=== PATIENT | female | born 1995 | race American Indian/Alaskan Native ===

== ENCOUNTER 2017-06-21 19:53 | Emergency (ER) | payer OTHER ==
[~2017-06-21] VITALS: Ht 167.6 cm; Wt 90.7 kg
[~2017-06-21 19:53] MED LIST: (None)20 M1 PO; ACET325 PO; ALBU.083IS IH; ALBU3IS INH; ALBU90I INH; ALBU90OI INH; ALBU90OI6 INH; ALL DAY ALLERGY10 MG PO; AMOCLA500 PO; AZIT250 PO; AZIT500 PO; Accuneb0.63 MG/3 INH; BECL40OI; BENZ100A PO; CAMRESE LO TAB1 EACH PO; CETI5 PO; CODGUAEL PO; DELTASONE20 MG PO; DIPH50 PO; DULERA; DULERA 200 MCG/13 GM INH; Duoneb 2.5-0.5 M3 ML INH; EPIN.3I IM; FLONASE ALLERG9.9 ML; Flonase 0.05% N16 GM; LEVFLO500 PO; LEVO750 PO; LISI5 PO; LORA10ER PO; MONT10T PO; PRED10 PO; PRED20 PO; PSEU120ER PO; Prednisone10 MG PO; Prednisone20 MG PO; QVAR7.3 G1 INH; RANI150 PO; RXCODGUASY PO; SEASONIQUE; Sudogest30 MG PO; TRAM50 PO; VITAMIN D35000 UNIT PO; Ventolin Soln3 ML INH; Vibramycin100 MG PO; [UNRECOGNIZED DRUG - OTHER] PO
[2017-06-21 20:57] LABS: BASOPHILS ABSOLUTE AUTO 0.03 K/mm3 (0.00-0.23); BASOPHILS PERCENT AUTO 0 % (0-2); EOSINOPHILS ABSOLUTE AUTO 0.38 K/mm3 (0.00-0.68); EOSINOPHILS PERCENT AUTO 3 % (0-6); Hematocrit 38.6 % (33.0-51.0); IMMATURE GRAN PERCENT AUTO 1 % (0-1); LYMPHOCYTES ABSOLUTE AUTO 1.89 K/mm3 (0.84-5.20); LYMPHOCYTES PERCENT AUTO 17 % (21-46); MONOCYTES ABSOLUTE AUTO 0.75 K/mm3 (0.16-1.47); MONOCYTES PERCENT AUTO 7 % (4-13); Mean Corpuscular HGB 30.3 pg (26.0-34.0); Mean Corpuscular HGB Conc 33.7 g/dL (31.5-36.5); Mean Corpuscular Volume 90 fL (80-100); Mean Platelet Volume 9.9 fL (9.1-12.4); NEUTROPHILS ABSOLUTE AUTO 8.33 K/mm3 (1.96-9.15); NEUTROPHILS PERCENT AUTO 73 % (41-73); Platelet Count 245 K/mm3 (150-400); RDW Standard Deviation 42.4 fL (35.1-46.3); Red Blood Cell Count 4.29 M/mm3 (3.80-5.20); White Blood Cell Count 11.48 K/mm3 (4.00-11.30)
[2017-06-21 21:21] LABS: Alanine Aminotransfer (ALT/SGP 35 U/L (12-78); Albumin, Blood 3.2 g/dL (3.4-5.0); Albumin/Globulin Ratio 0.9 (0.8-1.8); Alk Phos 47 U/L (50-136); Anion Gap 11 mmol/L (6-16); Aspartate Aminotrans (AST/SGOT 19 U/L (12-37); Bilirubin, Total 0.2 mg/dL (0.1-1.0); Blood Urea Nitrogen 8 mg/dL (8-24); Bun/Creatinine Ratio 14.8 (12.0-20.0); CO2, Blood 21 mmol/L (21-32); Calcium, Blood 8.6 mg/dL (8.5-10.1); Chloride, Blood 107 mmol/L (98-108); Creatinine, Blood 0.54 mg/dL (0.40-1.00); Globulin, Blood 3.4 g/dL (2.2-4.0); Glomerular Filtration Rate >60 (60-); Glucose, Blood 91 mg/dL (70-99); Potassium, Blood 3.3 mmol/L (3.5-5.5); Sodium, Blood 139 mmol/L (136-145); Total Protein, Blood 6.6 g/dL (6.4-8.2); Troponin I <0.015 ng/mL (0.000-0.040)
[2017-06-21] MEDS ORDERED: Prednisone20 MG PO (22:53)
[2017-10-27] MEDS ORDERED: CETI5 PO (11:26)
[2017-10-27] MEDS ORDERED: PRED10 PO (11:26)
[2018-03-02] MEDS ORDERED: ALBU3IS INH (04:53)
[2018-03-02] MEDS ORDERED: PRED5 PO (04:54)
[2018-03-02] MEDS ORDERED: MONT5TCH PO (04:55)
[2018-03-03] MEDS ORDERED: ALBU90OI INH (10:05)
[2018-03-03] MEDS ORDERED: PRED10 (10:07)
[2018-03-03] MEDS ORDERED: PSEUDOEPHEDRINE30 MG PO (10:08)
[2018-03-03] MEDS ORDERED: FLONASE ALLERG9.9 ML (10:10)
== END 2017-06-21 23:12 | disposition home or self-care (01) ==
LOC: ER 19:53
PROVIDERS: Physician Assistant
DX: O99.512 Diseases of the respiratory system complicating pregnancy, second trimester (principal); J45.901 Unspecified asthma with (acute) exacerbation; J44.9 Chronic obstructive pulmonary disease, unspecified; Z88.1 Allergy status to other antibiotic agents; Z88.8 Allergy status to other drugs, medicaments and biological substances; Z88.6 Allergy status to analgesic agent; Z79.899 Other long term (current) drug therapy; Z79.52 Long term (current) use of systemic steroids
CPT/HCPCS: 36415; 80053; 84484; 85025; 93005; 93010; 94640; 94644; 96360; 99283; J7030

== ENCOUNTER 2017-06-25 02:33 | Emergency (ER) | payer OTHER ==
[~2017-06-25] VITALS: Ht 162.6 cm; Wt 90.7 kg
[2017-06-25] MEDS ORDERED: LABE100 PO (03:16)
[2017-06-25] MEDS ORDERED: FLUT1DIS5 INH (03:17)
[2017-06-25] MEDS ORDERED: MONT10T PO (03:17)
[2017-10-27] MEDS ORDERED: CETI5 PO (11:26)
[2017-10-27] MEDS ORDERED: PRED10 PO (11:26)
[2018-03-02] MEDS ORDERED: ALBU3IS INH (04:53)
[2018-03-02] MEDS ORDERED: PRED5 PO (04:54)
[2018-03-02] MEDS ORDERED: MONT5TCH PO (04:55)
[2018-03-03] MEDS ORDERED: ALBU90OI INH (10:05)
[2018-03-03] MEDS ORDERED: PRED10 (10:07)
[2018-03-03] MEDS ORDERED: PSEUDOEPHEDRINE30 MG PO (10:08)
[2018-03-03] MEDS ORDERED: FLONASE ALLERG9.9 ML (10:10)
== END 2017-06-25 04:56 | disposition home or self-care (01) ==
LOC: ER 02:33
DX: O99.512 Diseases of the respiratory system complicating pregnancy, second trimester (principal); J45.901 Unspecified asthma with (acute) exacerbation; O24.312 Unspecified pre-existing diabetes mellitus in pregnancy, second trimester; E11.9 Type 2 diabetes mellitus without complications; O10.912 Unspecified pre-existing hypertension complicating pregnancy, second trimester; I10 Essential (primary) hypertension; Z88.1 Allergy status to other antibiotic agents; Z88.8 Allergy status to other drugs, medicaments and biological substances; Z88.6 Allergy status to analgesic agent; Z79.899 Other long term (current) drug therapy; Z79.52 Long term (current) use of systemic steroids
CPT/HCPCS: 71046; 94640; 99283

== ENCOUNTER 2017-06-28 21:30 | Emergency (ER) | payer OTHER ==
[~2017-06-28] VITALS: Ht 162.6 cm; Wt 90.7 kg
[~2017-06-28 21:30] MED LIST changes: +FLUT1DIS5 INH; +LABE100 PO
[2017-10-27] MEDS ORDERED: CETI5 PO (11:26)
[2017-10-27] MEDS ORDERED: PRED10 PO (11:26)
[2018-03-02] MEDS ORDERED: ALBU3IS INH (04:53)
[2018-03-02] MEDS ORDERED: PRED5 PO (04:54)
[2018-03-02] MEDS ORDERED: MONT5TCH PO (04:55)
[2018-03-03] MEDS ORDERED: ALBU90OI INH (10:05)
[2018-03-03] MEDS ORDERED: PRED10 (10:07)
[2018-03-03] MEDS ORDERED: PSEUDOEPHEDRINE30 MG PO (10:08)
[2018-03-03] MEDS ORDERED: FLONASE ALLERG9.9 ML (10:10)
== END 2017-06-28 23:32 | disposition home or self-care (01) ==
LOC: ER 21:30
DX: O99.712 Diseases of the skin and subcutaneous tissue complicating pregnancy, second trimester (principal); L20.9 Atopic dermatitis, unspecified; Z88.1 Allergy status to other antibiotic agents; Z88.8 Allergy status to other drugs, medicaments and biological substances; Z88.6 Allergy status to analgesic agent; Z79.899 Other long term (current) drug therapy; J45.909 Unspecified asthma, uncomplicated; O99.512 Diseases of the respiratory system complicating pregnancy, second trimester; O99.89 Other specified diseases and conditions complicating pregnancy, childbirth and the puerperium; E11.9 Type 2 diabetes mellitus without complications; I10 Essential (primary) hypertension; Z3A.20 20 weeks gestation of pregnancy
CPT/HCPCS: 99282

== ENCOUNTER 2017-06-30 19:26 | Inpatient (IN) | payer OTHER ==
[~2017-06-30] VITALS: Ht 162.6 cm; Wt 90.0 kg
[2017-06-30 20:08] LABS: BASOPHILS ABSOLUTE AUTO 0.04 K/mm3 (0.00-0.23); BASOPHILS PERCENT AUTO 0 % (0-2); EOSINOPHILS ABSOLUTE AUTO 0.39 K/mm3 (0.00-0.68); EOSINOPHILS PERCENT AUTO 3 % (0-6); Hematocrit 40.8 % (33.0-51.0); Hemoglobin 13.4 g/dL (11.5-16.0); IMMATURE GRAN ABSOLUTE AUTO 0.08 K/mm3 (0.00-0.10); IMMATURE GRAN PERCENT AUTO 1 % (0-1); LYMPHOCYTES ABSOLUTE AUTO 0.71 K/mm3 (0.84-5.20); LYMPHOCYTES PERCENT AUTO 5 % (21-46); MONOCYTES ABSOLUTE AUTO 0.63 K/mm3 (0.16-1.47); MONOCYTES PERCENT AUTO 5 % (4-13); Mean Corpuscular HGB 30.2 pg (26.0-34.0); Mean Corpuscular HGB Conc 32.8 g/dL (31.5-36.5); Mean Corpuscular Volume 92 fL (80-100); Mean Platelet Volume 10.2 fL (9.1-12.4); NEUTROPHILS ABSOLUTE AUTO 11.76 K/mm3 (1.96-9.15); NEUTROPHILS PERCENT AUTO 86 % (41-73); Platelet Count 232 K/mm3 (150-400); RDW Coefficient Variation 12.7 % (11.7-14.2); Red Blood Cell Count 4.43 M/mm3 (3.80-5.20); White Blood Cell Count 13.61 K/mm3 (4.00-11.30)
[2017-06-30 20:24] LABS: Alanine Aminotransfer (ALT/SGP 44 U/L (12-78); Albumin, Blood 3.4 g/dL (3.4-5.0); Alk Phos 57 U/L (50-136); Anion Gap 11 mmol/L (6-16); Aspartate Aminotrans (AST/SGOT 24 U/L (12-37); Bilirubin, Total 0.3 mg/dL (0.1-1.0); Blood Urea Nitrogen 7 mg/dL (8-24); Bun/Creatinine Ratio 11.6 (12.0-20.0); CO2, Blood 22 mmol/L (21-32); Calcium, Blood 8.9 mg/dL (8.5-10.1); Chloride, Blood 105 mmol/L (98-108); Globulin, Blood 3.5 g/dL (2.2-4.0); Glomerular Filtration Rate >60 (60-); Glucose, Blood 96 mg/dL (70-99); Potassium, Blood 3.3 mmol/L (3.5-5.5); Sodium, Blood 138 mmol/L (136-145); Total Protein, Blood 6.9 g/dL (6.4-8.2)
[2017-07-01 14:12] LABS: Influenza B Negative (NEGATIVE)
[2017-07-01 14:13] LABS: Influenza A Positive (NEGATIVE)
[2017-07-02 04:08] LABS: BASOPHILS ABSOLUTE AUTO 0.02 K/mm3 (0.00-0.23); BASOPHILS PERCENT AUTO 0 % (0-2); EOSINOPHILS ABSOLUTE AUTO 0.03 K/mm3 (0.00-0.68); EOSINOPHILS PERCENT AUTO 0 % (0-6); Hematocrit 37.6 % (33.0-51.0); Hemoglobin 12.2 g/dL (11.5-16.0); IMMATURE GRAN ABSOLUTE AUTO 0.06 K/mm3 (0.00-0.10); IMMATURE GRAN PERCENT AUTO 1 % (0-1); LYMPHOCYTES PERCENT AUTO 7 % (21-46); MONOCYTES ABSOLUTE AUTO 0.54 K/mm3 (0.16-1.47); MONOCYTES PERCENT AUTO 6 % (4-13); Mean Corpuscular HGB 30.3 pg (26.0-34.0); Mean Corpuscular HGB Conc 32.4 g/dL (31.5-36.5); Mean Corpuscular Volume 93 fL (80-100); NEUTROPHILS ABSOLUTE AUTO 7.16 K/mm3 (1.96-9.15); NEUTROPHILS PERCENT AUTO 85 % (41-73); Platelet Count 182 K/mm3 (150-400); RDW Standard Deviation 44.8 fL (35.1-46.3); Red Blood Cell Count 4.03 M/mm3 (3.80-5.20); White Blood Cell Count 8.41 K/mm3 (4.00-11.30)
[2017-07-02 04:30] LABS: Anion Gap 11 mmol/L (6-16); Blood Urea Nitrogen 8 mg/dL (8-24); CO2, Blood 21 mmol/L (21-32); Calcium, Blood 8.1 mg/dL (8.5-10.1); Chloride, Blood 106 mmol/L (98-108); Creatinine, Blood 0.57 mg/dL (0.40-1.00); Glomerular Filtration Rate >60 (60-); Glucose, Blood 88 mg/dL (70-99); Potassium, Blood 3.1 mmol/L (3.5-5.5); Sodium, Blood 138 mmol/L (136-145)
[2017-07-03 04:10] LABS: BASOPHILS ABSOLUTE AUTO 0.01 K/mm3 (0.00-0.23); BASOPHILS PERCENT AUTO 0 % (0-2); EOSINOPHILS ABSOLUTE AUTO 0.01 K/mm3 (0.00-0.68); EOSINOPHILS PERCENT AUTO 0 % (0-6); Hematocrit 36.5 % (33.0-51.0); Hemoglobin 11.9 g/dL (11.5-16.0); IMMATURE GRAN ABSOLUTE AUTO 0.05 K/mm3 (0.00-0.10); IMMATURE GRAN PERCENT AUTO 1 % (0-1); LYMPHOCYTES ABSOLUTE AUTO 0.49 K/mm3 (0.84-5.20); LYMPHOCYTES PERCENT AUTO 9 % (21-46); MONOCYTES ABSOLUTE AUTO 0.58 K/mm3 (0.16-1.47); MONOCYTES PERCENT AUTO 10 % (4-13); Mean Corpuscular HGB 30.3 pg (26.0-34.0); Mean Corpuscular HGB Conc 32.6 g/dL (31.5-36.5); Mean Corpuscular Volume 93 fL (80-100); Mean Platelet Volume 10.1 fL (9.1-12.4); NEUTROPHILS ABSOLUTE AUTO 4.48 K/mm3 (1.96-9.15); NEUTROPHILS PERCENT AUTO 80 % (41-73); Platelet Count 181 K/mm3 (150-400); RDW Coefficient Variation 13.1 % (11.7-14.2); RDW Standard Deviation 44.9 fL (35.1-46.3); Red Blood Cell Count 3.93 M/mm3 (3.80-5.20); White Blood Cell Count 5.62 K/mm3 (4.00-11.30)
[2017-07-03 04:25] LABS: Albumin, Blood 2.8 g/dL (3.4-5.0); Anion Gap 9 mmol/L (6-16); Blood Urea Nitrogen 6 mg/dL (8-24); Bun/Creatinine Ratio 9.5 (12.0-20.0); CO2, Blood 24 mmol/L (21-32); Calcium, Blood 8.3 mg/dL (8.5-10.1); Chloride, Blood 105 mmol/L (98-108); Creatinine, Blood 0.63 mg/dL (0.40-1.00); Glomerular Filtration Rate >60 (60-); Glucose, Blood 83 mg/dL (70-99); Phosphorus, Blood 5.1 mg/dL (2.5-4.9); Potassium, Blood 3.7 mmol/L (3.5-5.5); Sodium, Blood 138 mmol/L (136-145)
[2017-07-04 04:06] LABS: BASOPHILS ABSOLUTE AUTO 0.01 K/mm3 (0.00-0.23); BASOPHILS PERCENT AUTO 0 % (0-2); EOSINOPHILS ABSOLUTE AUTO 0.01 K/mm3 (0.00-0.68); EOSINOPHILS PERCENT AUTO 0 % (0-6); Hematocrit 37.8 % (33.0-51.0); IMMATURE GRAN ABSOLUTE AUTO 0.03 K/mm3 (0.00-0.10); IMMATURE GRAN PERCENT AUTO 1 % (0-1); LYMPHOCYTES ABSOLUTE AUTO 0.74 K/mm3 (0.84-5.20); LYMPHOCYTES PERCENT AUTO 15 % (21-46); MONOCYTES ABSOLUTE AUTO 0.55 K/mm3 (0.16-1.47); MONOCYTES PERCENT AUTO 11 % (4-13); Mean Corpuscular HGB 29.6 pg (26.0-34.0); Mean Corpuscular HGB Conc 31.7 g/dL (31.5-36.5); Mean Corpuscular Volume 93 fL (80-100); Mean Platelet Volume 9.9 fL (9.1-12.4); NEUTROPHILS ABSOLUTE AUTO 3.72 K/mm3 (1.96-9.15); NEUTROPHILS PERCENT AUTO 74 % (41-73); Platelet Count 184 K/mm3 (150-400); RDW Coefficient Variation 12.9 % (11.7-14.2); RDW Standard Deviation 44.5 fL (35.1-46.3); Red Blood Cell Count 4.05 M/mm3 (3.80-5.20); White Blood Cell Count 5.06 K/mm3 (4.00-11.30)
[2017-07-04 04:31] LABS: Albumin, Blood 2.8 g/dL (3.4-5.0); Anion Gap 8 mmol/L (6-16); Blood Urea Nitrogen 6 mg/dL (8-24); CO2, Blood 25 mmol/L (21-32); Calcium, Blood 8.5 mg/dL (8.5-10.1); Chloride, Blood 105 mmol/L (98-108); Creatinine, Blood 0.55 mg/dL (0.40-1.00); Glomerular Filtration Rate >60 (60-); Glucose, Blood 77 mg/dL (70-99); Phosphorus, Blood 5.4 mg/dL (2.5-4.9); Potassium, Blood 3.8 mmol/L (3.5-5.5); Sodium, Blood 138 mmol/L (136-145)
[2017-07-07] MEDS ORDERED: Acetaminophen325 M1 PO (14:12)
[2017-07-07] MEDS ORDERED: ENOX40I SC (14:14)
[2017-07-07] MEDS ORDERED: Zofran4 MG PO (14:15)
[2017-07-07] MEDS ORDERED: PROM25 PO (14:16)
[2017-07-07] MEDS ORDERED: PRED20 PO (14:18)
[2017-10-27] MEDS ORDERED: CETI5 PO (11:26)
[2017-10-27] MEDS ORDERED: PRED10 PO (11:26)
[2018-03-02] MEDS ORDERED: ALBU3IS INH (04:53)
[2018-03-02] MEDS ORDERED: PRED5 PO (04:54)
[2018-03-02] MEDS ORDERED: MONT5TCH PO (04:55)
[2018-03-03] MEDS ORDERED: ALBU90OI INH (10:05)
[2018-03-03] MEDS ORDERED: PRED10 (10:07)
[2018-03-03] MEDS ORDERED: PSEUDOEPHEDRINE30 MG PO (10:08)
[2018-03-03] MEDS ORDERED: FLONASE ALLERG9.9 ML (10:10)
== END 2017-07-07 14:36 | disposition home or self-care (01) | DRG 781 ==
LOC: ER 19:26 → ICUW 19:27 → PCU 07-01 18:58 → SURS 07-05 12:32 → ENPENDDIS 07-07 08:40 → SURS 07-07 14:36
PROVIDERS: Emergency Medicine; Internal Medicine Critical Care Medicine
DX: O99.512 Diseases of the respiratory system complicating pregnancy, second trimester (principal); J09.X2 Influenza due to identified novel influenza A virus with other respiratory manifestations; J45.901 Unspecified asthma with (acute) exacerbation; O24.410 Gestational diabetes mellitus in pregnancy, diet controlled; E66.9 Obesity, unspecified; J44.9 Chronic obstructive pulmonary disease, unspecified; O10.012 Pre-existing essential hypertension complicating pregnancy, second trimester; J01.90 Acute sinusitis, unspecified; O99.212 Obesity complicating pregnancy, second trimester; Z86.718 Personal history of other venous thrombosis and embolism; Z3A.20 20 weeks gestation of pregnancy; Z68.34 Body mass index [BMI] 34.0-34.9, adult
CPT/HCPCS: 36415; 71045; 80053; 80069; 82947; 85025; 87804; 94640; 94644; 94760; 94761; 94762; 99285; G0378; J0696; J1650; J2405; J2550; J3480; J7030; J7120

== ENCOUNTER 2017-10-27 11:07 | Inpatient (IN) | payer OTHER ==
[~2017-10-27] VITALS: Ht 165.1 cm; Wt 96.8 kg
[~2017-10-27 11:07] MED LIST changes: +Acetaminophen325 M1 PO; +ENOX40I SC; -FLUT1DIS5 INH; +FLUT1DIS8 INH; +PROM25 PO; +Zofran4 MG PO
[2017-10-27] MEDS ORDERED: PRED10 (11:26)
[2017-10-27] MEDS ORDERED: CETI5 (11:26)
[2017-10-27 12:02] LABS: BASOPHILS ABSOLUTE AUTO 0.04 K/mm3 (0.00-0.23); BASOPHILS PERCENT AUTO 0 % (0-2); EOSINOPHILS ABSOLUTE AUTO 0.38 K/mm3 (0.00-0.68); EOSINOPHILS PERCENT AUTO 4 % (0-6); Hematocrit 37.5 % (33.0-51.0); IMMATURE GRAN ABSOLUTE AUTO 0.04 K/mm3 (0.00-0.10); IMMATURE GRAN PERCENT AUTO 0 % (0-1); LYMPHOCYTES PERCENT AUTO 12 % (21-46); MONOCYTES ABSOLUTE AUTO 0.61 K/mm3 (0.16-1.47); MONOCYTES PERCENT AUTO 6 % (4-13); Mean Corpuscular HGB 27.6 pg (26.0-34.0); Mean Corpuscular Volume 86 fL (80-100); Mean Platelet Volume 11.3 fL (9.1-12.4); NEUTROPHILS ABSOLUTE AUTO 7.71 K/mm3 (1.96-9.15); NEUTROPHILS PERCENT AUTO 77 % (41-73); Platelet Count 241 K/mm3 (150-400); RDW Coefficient Variation 13.4 % (11.7-14.2); RDW Standard Deviation 42.1 fL (35.1-46.3); Red Blood Cell Count 4.35 M/mm3 (3.80-5.20); White Blood Cell Count 9.98 K/mm3 (4.00-11.30)
[2017-10-27 14:36] LABS: Alanine Aminotransfer (ALT/SGP 37 U/L (12-78); Albumin, Blood 2.5 g/dL (3.4-5.0); Albumin/Globulin Ratio 0.7 (0.8-1.8); Alk Phos 117 U/L (50-136); Anion Gap 10 mmol/L (6-16); Aspartate Aminotrans (AST/SGOT 35 U/L (12-37); Bilirubin, Total 0.4 mg/dL (0.1-1.0); Blood Urea Nitrogen 5 mg/dL (8-24); Bun/Creatinine Ratio 7.5 (12.0-20.0); CO2, Blood 21 mmol/L (21-32); Calcium, Blood 8.6 mg/dL (8.5-10.1); Chloride, Blood 110 mmol/L (98-108); Creatinine, Blood 0.67 mg/dL (0.40-1.00); Globulin, Blood 3.4 g/dL (2.2-4.0); Glomerular Filtration Rate >60 (60-); Glucose, Blood 116 mg/dL (70-99); Sodium, Blood 141 mmol/L (136-145); Total Protein, Blood 5.9 g/dL (6.4-8.2)
[2017-10-29 05:38] LABS: BASOPHILS ABSOLUTE AUTO 0.03 K/mm3 (0.00-0.23); BASOPHILS PERCENT AUTO 0 % (0-2); EOSINOPHILS ABSOLUTE AUTO 0.07 K/mm3 (0.00-0.68); EOSINOPHILS PERCENT AUTO 1 % (0-6); IMMATURE GRAN ABSOLUTE AUTO 0.11 K/mm3 (0.00-0.10); IMMATURE GRAN PERCENT AUTO 1 % (0-1); LYMPHOCYTES ABSOLUTE AUTO 1.24 K/mm3 (0.84-5.20); LYMPHOCYTES PERCENT AUTO 8 % (21-46); MONOCYTES ABSOLUTE AUTO 0.96 K/mm3 (0.16-1.47); MONOCYTES PERCENT AUTO 6 % (4-13); Mean Corpuscular HGB Conc 32.4 g/dL (31.5-36.5); Mean Corpuscular Volume 87 fL (80-100); Mean Platelet Volume 10.8 fL (9.1-12.4); NEUTROPHILS ABSOLUTE AUTO 12.91 K/mm3 (1.96-9.15); NEUTROPHILS PERCENT AUTO 84 % (41-73); Platelet Count 248 K/mm3 (150-400); RDW Coefficient Variation 13.5 % (11.7-14.2); RDW Standard Deviation 42.6 fL (35.1-46.3); Red Blood Cell Count 3.93 M/mm3 (3.80-5.20); White Blood Cell Count 15.32 K/mm3 (4.00-11.30)
== END 2017-10-30 15:15 | disposition home or self-care (01) | DRG 774 ==
LOC: BC 11:07
PROVIDERS: Nurse Practitioner Obstetrics & Gynecology
PROC: 10E0XZZ Delivery of Products of Conception, External Approach (ICD-10-PCS; principal; 2017-10-28)
PROC: 0UQGXZZ Repair Vagina, External Approach (ICD-10-PCS; 2017-10-28)
PROC: 0UQMXZZ Repair Vulva, External Approach (ICD-10-PCS; 2017-10-28)
DX: O10.92 Unspecified pre-existing hypertension complicating childbirth (principal); O24.82 Other pre-existing diabetes mellitus in childbirth; E09.9 Drug or chemical induced diabetes mellitus without complications; T38.0X5A Adverse effect of glucocorticoids and synthetic analogues, initial encounter; O99.824 Streptococcus B carrier state complicating childbirth; O99.52 Diseases of the respiratory system complicating childbirth; O70.0 First degree perineal laceration during delivery; J45.909 Unspecified asthma, uncomplicated; Z86.718 Personal history of other venous thrombosis and embolism; Z88.1 Allergy status to other antibiotic agents; Z88.8 Allergy status to other drugs, medicaments and biological substances; Z79.01 Long term (current) use of anticoagulants; Z79.51 Long term (current) use of inhaled steroids; Z79.899 Other long term (current) drug therapy; Z37.0 Single live birth; Z3A.37 37 weeks gestation of pregnancy
CPT/HCPCS: 36415; 80053; 82947; 85025; 86900; 86901; 94640; 94760; J0290; J1650; J2590; J7120

== ENCOUNTER 2017-12-08 11:19 | Emergency (ER) | payer OTHER ==
[~2017-12-08] VITALS: Ht 157.5 cm; Wt 72.6 kg
[~2017-12-08 11:19] MED LIST changes: +FLUT1DIS5 INH; -FLUT1DIS8 INH
[2017-12-08 12:32] LABS: BASOPHILS ABSOLUTE AUTO 0.03 K/mm3 (0.00-0.23); BASOPHILS PERCENT AUTO 0 % (0-2); EOSINOPHILS ABSOLUTE AUTO 0.36 K/mm3 (0.00-0.68); EOSINOPHILS PERCENT AUTO 4 % (0-6); Hematocrit 40.2 % (33.0-51.0); Hemoglobin 12.6 g/dL (11.5-16.0); IMMATURE GRAN ABSOLUTE AUTO 0.04 K/mm3 (0.00-0.10); IMMATURE GRAN PERCENT AUTO 0 % (0-1); LYMPHOCYTES ABSOLUTE AUTO 1.63 K/mm3 (0.84-5.20); LYMPHOCYTES PERCENT AUTO 17 % (21-46); MONOCYTES ABSOLUTE AUTO 0.54 K/mm3 (0.16-1.47); MONOCYTES PERCENT AUTO 6 % (4-13); Mean Corpuscular HGB 27.2 pg (26.0-34.0); Mean Corpuscular HGB Conc 31.3 g/dL (31.5-36.5); Mean Corpuscular Volume 87 fL (80-100); Mean Platelet Volume 10.1 fL (9.1-12.4); NEUTROPHILS ABSOLUTE AUTO 6.98 K/mm3 (1.96-9.15); NEUTROPHILS PERCENT AUTO 73 % (41-73); Platelet Count 270 K/mm3 (150-400); RDW Coefficient Variation 13.3 % (11.7-14.2); RDW Standard Deviation 42.1 fL (35.1-46.3); Red Blood Cell Count 4.63 M/mm3 (3.80-5.20); White Blood Cell Count 9.58 K/mm3 (4.00-11.30)
[2017-12-08 12:59] LABS: Alanine Aminotransfer (ALT/SGP 19 U/L (12-78); Albumin, Blood 3.4 g/dL (3.4-5.0); Albumin/Globulin Ratio 0.9 (0.8-1.8); Alk Phos 107 U/L (50-136); Anion Gap 7 mmol/L (6-16); Aspartate Aminotrans (AST/SGOT 16 U/L (12-37); Bilirubin, Total 0.3 mg/dL (0.1-1.0); Blood Urea Nitrogen 12 mg/dL (8-24); Bun/Creatinine Ratio 15.6 (12.0-20.0); CO2, Blood 26 mmol/L (21-32); Calcium, Blood 8.3 mg/dL (8.5-10.1); Chloride, Blood 107 mmol/L (98-108); Creatinine, Blood 0.77 mg/dL (0.40-1.00); Globulin, Blood 3.7 g/dL (2.2-4.0); Glomerular Filtration Rate >60 (60-); Glucose, Blood 89 mg/dL (70-99); Potassium, Blood 3.8 mmol/L (3.5-5.5); Sodium, Blood 140 mmol/L (136-145); Total Protein, Blood 7.1 g/dL (6.4-8.2)
[2017-12-08] MEDS ORDERED: Prednisone20 MG PO (13:49)
== END 2017-12-08 14:05 | disposition home or self-care (01) ==
LOC: ER 11:19
PROVIDERS: Physician Assistant
DX: J45.901 Unspecified asthma with (acute) exacerbation (principal); Z88.1 Allergy status to other antibiotic agents; Z88.8 Allergy status to other drugs, medicaments and biological substances; Z88.6 Allergy status to analgesic agent; Z79.899 Other long term (current) drug therapy; Z79.52 Long term (current) use of systemic steroids; E11.9 Type 2 diabetes mellitus without complications; I10 Essential (primary) hypertension; J44.9 Chronic obstructive pulmonary disease, unspecified
CPT/HCPCS: 36415; 71046; 80053; 85025; 94644; 96365; 99285-25; J3475

== ENCOUNTER 2018-01-06 22:14 | Emergency (ER) | payer OTHER ==
[~2018-01-06] VITALS: Ht 162.6 cm; Wt 90.7 kg
[2018-01-07 00:05] LABS: BASOPHILS ABSOLUTE AUTO 0.05 K/mm3 (0.00-0.23); BASOPHILS PERCENT AUTO 1 % (0-2); EOSINOPHILS ABSOLUTE AUTO 0.38 K/mm3 (0.00-0.68); EOSINOPHILS PERCENT AUTO 4 % (0-6); Hematocrit 38.4 % (33.0-51.0); Hemoglobin 12.1 g/dL (11.5-16.0); IMMATURE GRAN ABSOLUTE AUTO 0.04 K/mm3 (0.00-0.10); IMMATURE GRAN PERCENT AUTO 0 % (0-1); LYMPHOCYTES ABSOLUTE AUTO 2.53 K/mm3 (0.84-5.20); LYMPHOCYTES PERCENT AUTO 28 % (21-46); MONOCYTES PERCENT AUTO 7 % (4-13); Mean Corpuscular HGB 27.1 pg (26.0-34.0); Mean Corpuscular HGB Conc 31.5 g/dL (31.5-36.5); Mean Corpuscular Volume 86 fL (80-100); Mean Platelet Volume 10.2 fL (9.1-12.4); NEUTROPHILS ABSOLUTE AUTO 5.43 K/mm3 (1.96-9.15); NEUTROPHILS PERCENT AUTO 60 % (41-73); Platelet Count 251 K/mm3 (150-400); RDW Standard Deviation 44.3 fL (35.1-46.3); Red Blood Cell Count 4.47 M/mm3 (3.80-5.20); White Blood Cell Count 9.03 K/mm3 (4.00-11.30)
[2018-01-07 00:23] LABS: Alanine Aminotransfer (ALT/SGP 16 U/L (12-78); Albumin, Blood 3.6 g/dL (3.4-5.0); Alk Phos 90 U/L (50-136); Anion Gap 11 mmol/L (6-16); Aspartate Aminotrans (AST/SGOT 11 U/L (12-37); Bilirubin, Total 0.3 mg/dL (0.1-1.0); Blood Urea Nitrogen 17 mg/dL (8-24); Bun/Creatinine Ratio 17.9 (12.0-20.0); CO2, Blood 23 mmol/L (21-32); Calcium, Blood 8.4 mg/dL (8.5-10.1); Chloride, Blood 107 mmol/L (98-108); Creatinine, Blood 0.95 mg/dL (0.40-1.00); Globulin, Blood 3.5 g/dL (2.2-4.0); Glomerular Filtration Rate >60 (60-); Glucose, Blood 120 mg/dL (70-99); Potassium, Blood 3.1 mmol/L (3.5-5.5); Sodium, Blood 141 mmol/L (136-145); Total Protein, Blood 7.1 g/dL (6.4-8.2)
[2018-01-07] MEDS ORDERED: Norethindrone0.35 MG (01:17)
[2018-01-07] MEDS ORDERED: Prednisone20 MG PO (01:56)
== END 2018-01-07 02:01 | disposition home or self-care (01) ==
LOC: ER 22:14
PROVIDERS: Physician Assistant
DX: J45.901 Unspecified asthma with (acute) exacerbation (principal); J98.01 Acute bronchospasm; Z88.1 Allergy status to other antibiotic agents; Z88.6 Allergy status to analgesic agent; Z88.8 Allergy status to other drugs, medicaments and biological substances; Z79.899 Other long term (current) drug therapy; Z79.52 Long term (current) use of systemic steroids; E11.9 Type 2 diabetes mellitus without complications; I10 Essential (primary) hypertension; Z87.891 Personal history of nicotine dependence
CPT/HCPCS: 71046; 80053; 85025; 94644; 96361; 96365; 99285-25; J3475; J7030

== ENCOUNTER 2018-01-09 16:48 | Emergency (ER) | payer OTHER ==
[~2018-01-09] VITALS: Ht 167.6 cm; Wt 90.7 kg
[~2018-01-09 16:48] MED LIST changes: +Norethindrone0.35 MG
== END 2018-01-09 18:33 | disposition home or self-care (01) ==
LOC: ER 16:48
DX: J45.901 Unspecified asthma with (acute) exacerbation (principal); J44.9 Chronic obstructive pulmonary disease, unspecified; E11.9 Type 2 diabetes mellitus without complications; I10 Essential (primary) hypertension; Z88.1 Allergy status to other antibiotic agents; Z88.8 Allergy status to other drugs, medicaments and biological substances; Z88.6 Allergy status to analgesic agent; Z79.899 Other long term (current) drug therapy; Z79.52 Long term (current) use of systemic steroids; Z87.891 Personal history of nicotine dependence
CPT/HCPCS: 36415; 71045; 94644; 99285-25

== ENCOUNTER 2018-06-05 20:09 | Emergency (ER) | payer OTHER ==
[~2018-06-05] VITALS: Ht 165.1 cm; Wt 92.1 kg
[~2018-06-05 20:09] MED LIST changes: +MONT5TCH PO; +PRED10; +PRED5 PO; +PSEUDOEPHEDRINE30 MG PO
[2018-06-05 21:14] LABS: BASOPHILS ABSOLUTE AUTO 0.04 K/mm3 (0.00-0.23); BASOPHILS PERCENT AUTO 0 % (0-2); EOSINOPHILS ABSOLUTE AUTO 0.09 K/mm3 (0.00-0.68); EOSINOPHILS PERCENT AUTO 1 % (0-6); Hematocrit 42.7 % (33.0-51.0); Hemoglobin 13.5 g/dL (11.5-16.0); IMMATURE GRAN PERCENT AUTO 1 % (0-1); LYMPHOCYTES ABSOLUTE AUTO 2.08 K/mm3 (0.84-5.20); LYMPHOCYTES PERCENT AUTO 20 % (21-46); MONOCYTES ABSOLUTE AUTO 0.78 K/mm3 (0.16-1.47); MONOCYTES PERCENT AUTO 8 % (4-13); Mean Corpuscular HGB 28.4 pg (26.0-34.0); Mean Corpuscular HGB Conc 31.6 g/dL (31.5-36.5); Mean Corpuscular Volume 90 fL (80-100); Mean Platelet Volume 10.2 fL (9.1-12.4); NEUTROPHILS ABSOLUTE AUTO 7.28 K/mm3 (1.96-9.15); NEUTROPHILS PERCENT AUTO 70 % (41-73); Platelet Count 286 K/mm3 (150-400); RDW Coefficient Variation 13.8 % (11.7-14.2); RDW Standard Deviation 45.5 fL (35.1-46.3); Red Blood Cell Count 4.75 M/mm3 (3.80-5.20); White Blood Cell Count 10.37 K/mm3 (4.00-11.30)
[2018-06-05 21:22] LABS: Source, Urine Clean Catch
[2018-06-05 21:28] LABS: Appearance, Urine Clear (Clear); Bilirubin, Urine Neg (Neg); Blood, Urine 4+ (Neg); Color, Urine Yellow (P-Yellow); Glucose Qualitative, Urine 3+ (Neg); Ketones, Urine Neg (Neg); Leukocyte Esterase, Urine Neg (Neg); Nitrite, Urine Neg (Neg); Protein, Urine Neg (Neg); Urobilinogen, Urine NORM (Normal)
[2018-06-05 21:31] LABS: Alanine Aminotransfer (ALT/SGP 20 U/L (12-78); Albumin, Blood 3.5 g/dL (3.4-5.0); Albumin/Globulin Ratio 1.1 (0.8-1.8); Alk Phos 61 U/L (50-136); Anion Gap 8 mmol/L (6-16); Aspartate Aminotrans (AST/SGOT 12 U/L (12-37); Bilirubin, Total 0.2 mg/dL (0.1-1.0); Blood Urea Nitrogen 17 mg/dL (8-24); Bun/Creatinine Ratio 20.5 (12.0-20.0); CO2, Blood 25 mmol/L (21-32); Calcium, Blood 8.5 mg/dL (8.5-10.1); Chloride, Blood 109 mmol/L (98-108); Creatinine, Blood 0.83 mg/dL (0.40-1.00); Globulin, Blood 3.3 g/dL (2.2-4.0); Glomerular Filtration Rate >60 (60-); Glucose, Blood 112 mg/dL (70-99); Potassium, Blood 3.8 mmol/L (3.5-5.5); Sodium, Blood 142 mmol/L (136-145); Total Protein, Blood 6.8 g/dL (6.4-8.2)
[2018-06-05 21:34] LABS: Bacteria Few /hpf; Squamous Epithelial Cells Few /hpf (Few); White Blood Cells, Urine 0-2 /hpf (0-5)
[2018-06-05] MEDS ORDERED: Protonix40 MG PO (22:25)
== END 2018-06-05 22:42 | disposition home or self-care (01) ==
LOC: ER 20:09
PROVIDERS: Physician Assistant
DX: K29.70 Gastritis, unspecified, without bleeding (principal); K76.0 Fatty (change of) liver, not elsewhere classified; Z88.1 Allergy status to other antibiotic agents; Z88.6 Allergy status to analgesic agent; Z79.899 Other long term (current) drug therapy; Z88.8 Allergy status to other drugs, medicaments and biological substances; Z79.52 Long term (current) use of systemic steroids; J44.9 Chronic obstructive pulmonary disease, unspecified; E11.9 Type 2 diabetes mellitus without complications; I10 Essential (primary) hypertension; Z87.891 Personal history of nicotine dependence
CPT/HCPCS: 36415; 76705; 80053; 81001; 81025; 83690; 85025; 93005; 93010; 99285-25

== ENCOUNTER 2018-07-10 08:58 | Emergency (ER) | payer OTHER ==
[~2018-07-10] VITALS: Ht 167.6 cm; Wt 98.9 kg
[~2018-07-10 08:58] MED LIST changes: +Protonix40 MG PO
[2018-07-10 11:13] LABS: Influenza A Negative (NEGATIVE); Influenza B Negative (NEGATIVE)
[2018-07-10] MEDS ORDERED: PRED10 PO (11:51)
[2018-07-10] MEDS ORDERED: Sudogest30 MG PO (11:51)
== END 2018-07-10 12:00 | disposition home or self-care (01) ==
LOC: ER 08:58
PROVIDERS: Physician Assistant
DX: J45.901 Unspecified asthma with (acute) exacerbation (principal); Z88.1 Allergy status to other antibiotic agents; Z88.8 Allergy status to other drugs, medicaments and biological substances; Z88.6 Allergy status to analgesic agent; Z79.899 Other long term (current) drug therapy; Z79.52 Long term (current) use of systemic steroids; J44.9 Chronic obstructive pulmonary disease, unspecified; E11.9 Type 2 diabetes mellitus without complications; I10 Essential (primary) hypertension
CPT/HCPCS: 71046; 87081; 87430; 87804; 94644; 99285-25

== ENCOUNTER 2019-11-02 14:15 | Observation (INO) | payer OTHER ==
[~2019-11-02] VITALS: Ht 167.6 cm; Wt 95.9 kg
[~2019-11-02 14:15] MED LIST changes: +Benadryl 50 mg50 MG PO; +EPIPEN0.3 MG/0.3 IM; -FLUT1DIS5 INH; -PRED10; -PSEUDOEPHEDRINE30 MG PO
[2019-11-02 14:37] LABS: BASOPHILS ABSOLUTE AUTO 0.07 K/mm3 (0.00-0.23); BASOPHILS PERCENT AUTO 1 % (0-2); EOSINOPHILS ABSOLUTE AUTO 0.27 K/mm3 (0.00-0.68); EOSINOPHILS PERCENT AUTO 3 % (0-6); Hemoglobin 15.2 g/dL (11.5-16.0); IMMATURE GRAN ABSOLUTE AUTO 0.05 K/mm3 (0.00-0.10); IMMATURE GRAN PERCENT AUTO 1 % (0-1); LYMPHOCYTES ABSOLUTE AUTO 1.78 K/mm3 (0.84-5.20); LYMPHOCYTES PERCENT AUTO 16 % (21-46); MONOCYTES ABSOLUTE AUTO 0.92 K/mm3 (0.16-1.47); MONOCYTES PERCENT AUTO 9 % (4-13); Mean Corpuscular HGB 29.3 pg (26.0-34.0); Mean Corpuscular HGB Conc 32.3 g/dL (31.5-36.5); Mean Corpuscular Volume 91 fL (80-100); Mean Platelet Volume 10.9 fL (9.1-12.4); NEUTROPHILS ABSOLUTE AUTO 7.79 K/mm3 (1.96-9.15); NEUTROPHILS PERCENT AUTO 72 % (41-73); Platelet Count 255 K/mm3 (150-400); RDW Coefficient Variation 12.3 % (11.7-14.2); RDW Standard Deviation 41.3 fL (35.1-46.3); Red Blood Cell Count 5.18 M/mm3 (3.80-5.20); White Blood Cell Count 10.88 K/mm3 (4.00-11.30)
[2019-11-02 14:55] LABS: Anion Gap 11 mmol/L (6-16); Blood Urea Nitrogen 12 mg/dL (8-24); Bun/Creatinine Ratio 13.6 (12.0-20.0); CO2, Blood 20 mmol/L (21-32); Calcium, Blood 9.1 mg/dL (8.5-10.1); Chloride, Blood 109 mmol/L (98-108); Creatinine, Blood 0.88 mg/dL (0.40-1.00); Glomerular Filtration Rate >60 (60-); Glucose, Blood 125 mg/dL (70-99); Potassium, Blood 3.4 mmol/L (3.5-5.5); Sodium, Blood 140 mmol/L (136-145)
[2019-11-02] MEDS ORDERED: PSEUDOEPHEDRINE30 MG PO (15:15)
[2019-11-02] MEDS ORDERED: NASAL ALLERGY16.9 ML (15:15)
[2019-11-02] MEDS ORDERED: ALBU90OI INH (15:16)
[2019-11-02] MEDS ORDERED: AUGMENTIN 875-1 EACH PO (15:17)
[2019-11-02] MEDS ORDERED: ZILEUTON PO (15:18)
[2019-11-02] MEDS ORDERED: PRED20 PO (15:19)
[2019-11-02] MEDS ORDERED: IPRAT-ALBUT 0.5-3 ML NEB (15:22)
[2019-11-02] MEDS ORDERED: INCRUSE ELLI62.5 MC1 INH (15:23)
[2019-11-02] MEDS ORDERED: FLUT1DIS5 INH (15:37)
--- NOTE | 2019-11-02 18:43 | NUR ---
PCU DAYSHIFT SUMMARY PATIENT ARRIVED FROM ER AND AMBULATED FROM [facility] TO UNIT BED WITH NO ACUTE DISTRESS. LUNG SOUNDS NOTED TO HAVE EXPIRATORY WHEEZES - PATIENT ON ROOM AIR AND HEART RATE NOTED TO BE SINUS TACH IN THE 120'S OTHER VSS. PATIENT DENIES ANY PAIN AT THIS TIME. NO ACUTE DRESS NOTED RESPIRTORY OR OTHERWISE. CALL LIGHT W/I REACH. WILL CONTINUE TO MONITOR AND REPORT TO NOC SHIFT RN.
[2019-11-02 23:18] LABS: Adenovirus Not Detected (NOT DETECT); Bordetella pertussis Not Detected (NOT DETECT); Chlamydophila pneumoniae Not Detected (NOT DETECT); Coronavirus 229E Not Detected (NOT DETECT); Coronavirus HKU1 Not Detected (NOT DETECT); Coronavirus NL63 Not Detected (NOT DETECT); Coronavirus OC43 Not Detected (NOT DETECT); Human Metapneumovirus Not Detected (NOT DETECT); Human Rhinovirus/Enterovirus Not Detected (NOT DETECT); Influenza A/2009-H1 Not Detected (NOT DETECT); Influenza A/H1 Not Detected (NOT DETECT); Influenza A/H3 Not Detected (NOT DETECT); Influenza B Not Detected (NOT DETECT); Mycoplasma pneumoniae Not Detected (NOT DETECT); Parainfluenza Virus 1 Not Detected (NOT DETECT); Parainfluenza Virus 2 Not Detected (NOT DETECT); Parainfluenza Virus 3 Not Detected (NOT DETECT); Parainfluenza Virus 4 Not Detected (NOT DETECT); Respiratory Syncytial Virus Not Detected (NOT DETECT)
[2019-11-03 03:41] LABS: BASOPHILS ABSOLUTE AUTO 0.03 K/mm3 (0.00-0.23); BASOPHILS PERCENT AUTO 0 % (0-2); EOSINOPHILS ABSOLUTE AUTO 0.08 K/mm3 (0.00-0.68); EOSINOPHILS PERCENT AUTO 1 % (0-6); Hemoglobin 12.9 g/dL (11.5-16.0); IMMATURE GRAN ABSOLUTE AUTO 0.04 K/mm3 (0.00-0.10); IMMATURE GRAN PERCENT AUTO 0 % (0-1); LYMPHOCYTES ABSOLUTE AUTO 1.23 K/mm3 (0.84-5.20); LYMPHOCYTES PERCENT AUTO 12 % (21-46); MONOCYTES PERCENT AUTO 9 % (4-13); Mean Corpuscular HGB 29.3 pg (26.0-34.0); Mean Corpuscular HGB Conc 31.5 g/dL (31.5-36.5); Mean Corpuscular Volume 93 fL (80-100); Mean Platelet Volume 10.7 fL (9.1-12.4); NEUTROPHILS ABSOLUTE AUTO 7.87 K/mm3 (1.96-9.15); NEUTROPHILS PERCENT AUTO 78 % (41-73); Platelet Count 201 K/mm3 (150-400); RDW Coefficient Variation 12.6 % (11.7-14.2); RDW Standard Deviation 43.1 fL (35.1-46.3); Red Blood Cell Count 4.41 M/mm3 (3.80-5.20); White Blood Cell Count 10.15 K/mm3 (4.00-11.30)
[2019-11-03 04:08] LABS: Magnesium, Blood 2.3 mg/dL (1.6-2.4)
[2019-11-03 04:10] LABS: Anion Gap 7 mmol/L (6-16); Blood Urea Nitrogen 13 mg/dL (8-24); Bun/Creatinine Ratio 19.9 (12.0-20.0); CO2, Blood 21 mmol/L (21-32); Calcium, Blood 8.3 mg/dL (8.5-10.1); Chloride, Blood 114 mmol/L (98-108); Creatinine, Blood 0.65 mg/dL (0.40-1.00); Glomerular Filtration Rate >60 (60-); Glucose, Blood 111 mg/dL (70-99); Potassium, Blood 3.8 mmol/L (3.5-5.5); Sodium, Blood 142 mmol/L (136-145)
--- NOTE | 2019-11-03 05:49 | NUR ---
SHIFT SUMMARY PT A&O; PLEASANT & COMPLIANT W/ CARE; DENIES CHEST PAIN; VSS; SINUS TACH NOTED ON TELE; O2 SATS >94 ON RA; PT STATES SHE IS FEELING BETTER BUT FATIGUED; INDEPENDENT IN ROOM; AMBULATES FOR BRP; PO SNACKS & FLUIDS BROUGHT TO PT PRN; CALL LIGHT IN REACH; BED IN LOWEST POSITION; WILL CONTINUE TO MONITOR CLOSELY UNTIL HAND OFF TO DAY SHIFT RN.
[2019-11-03] MEDS ORDERED: Acetaminophen650 M1 PO (11:44)
[2019-11-03] MEDS ORDERED: AZIT250 PO (11:45)
[2019-11-03] MEDS ORDERED: FAMO40 PO (11:46)
[2019-11-03] MEDS ORDERED: Lisinopril2.5 MG PO (11:47)
[2019-11-03] MEDS ORDERED: ONDA4ODT MM (11:47)
[2019-11-03] MEDS ORDERED: VISBIOME PO (11:49)
--- NOTE | 2019-11-03 14:09 | NUR ---
PCU DISCHARGE SUMMARY PATIENT ALERT AND ORIENTED X4. RESPIRATIONS E/U ON ROOM AIR. PATIENT REPORTS THAT SHE IS FEELING MUCH BETTER. PATIENT VERBALIZED DISCHARGE INSTRUCTIONS. AMBULATED OUT OF UNIT WITH HOME.
== END 2019-11-03 12:36 | disposition home or self-care (01) ==
LOC: ER 14:15 → PCU 14:16
PROVIDERS: Emergency Medicine; ADMIT Family Medicine
DX: J96.21 Acute and chronic respiratory failure with hypoxia (principal); J45.901 Unspecified asthma with (acute) exacerbation; J32.9 Chronic sinusitis, unspecified; R73.03 Prediabetes; E87.6 Hypokalemia; I10 Essential (primary) hypertension; Z86.718 Personal history of other venous thrombosis and embolism; Z20.828 Contact with and (suspected) exposure to other viral communicable diseases; Z87.891 Personal history of nicotine dependence; Z88.1 Allergy status to other antibiotic agents; Z88.8 Allergy status to other drugs, medicaments and biological substances; Z88.6 Allergy status to analgesic agent; Z79.51 Long term (current) use of inhaled steroids; Z79.899 Other long term (current) drug therapy
CPT/HCPCS: 0099U; 36415; 71045; 80048; 82947; 83735; 85025; 93005; 93010; 94640; 94644; 94760; 96361; 96365; 96366; 99285-25; A9270; G0378; J3475; J7030; J7512; U0002

== ENCOUNTER 2020-05-31 18:22 | Emergency (ER) | payer OTHER ==
[~2020-05-31] VITALS: Ht 167.6 cm; Wt 92.1 kg
[~2020-05-31 18:22] MED LIST changes: +ALBU2.5V5 INH; +ANORO ELLIPTA1 EAC1 INH; +AUGMENTIN 875-1 EACH PO; +Acetaminophen650 M1 PO; +FAMO40 PO; +FLUT1DIS5 INH; +INCRUSE ELLI62.5 MC1 INH; +IPRAT-ALBUT 0.5-3 ML NEB; +Lisinopril2.5 MG PO; +NASAL ALLERGY16.9 ML; +NUCALA100 MG/11 SC; +ONDA4ODT MM; +PSEUDOEPHEDRINE30 M1 PO; +PSEUDOEPHEDRINE30 MG PO; +RIZATRIPTAN5 M1 PO; +VISBIOME PO; +ZILEUTON PO; +ZYRTEC10 M2 PO
== END 2020-05-31 20:06 | disposition home or self-care (01) ==
LOC: ER 18:22
DX: H00.013 Hordeolum externum right eye, unspecified eyelid (principal); J44.9 Chronic obstructive pulmonary disease, unspecified; I10 Essential (primary) hypertension; I25.10 Atherosclerotic heart disease of native coronary artery without angina pectoris; Z88.6 Allergy status to analgesic agent; Z88.1 Allergy status to other antibiotic agents; Z88.8 Allergy status to other drugs, medicaments and biological substances; Z79.899 Other long term (current) drug therapy; Z86.718 Personal history of other venous thrombosis and embolism
CPT/HCPCS: 99282; A9270

== ENCOUNTER 2020-06-26 21:05 | Emergency (ER) | payer OTHER ==
[~2020-06-26] VITALS: Ht 167.6 cm; Wt 97.5 kg
[2020-06-26 21:31] LABS: BASOPHILS ABSOLUTE AUTO 0.04 K/mm3 (0.00-0.23); BASOPHILS PERCENT AUTO 0 % (0-2); EOSINOPHILS ABSOLUTE AUTO 0.04 K/mm3 (0.00-0.68); EOSINOPHILS PERCENT AUTO 0 % (0-6); Hematocrit 44.5 % (33.0-51.0); Hemoglobin 14.4 g/dL (11.5-16.0); IMMATURE GRAN ABSOLUTE AUTO 0.14 K/mm3 (0.00-0.10); IMMATURE GRAN PERCENT AUTO 1 % (0-1); LYMPHOCYTES ABSOLUTE AUTO 2.51 K/mm3 (0.84-5.20); LYMPHOCYTES PERCENT AUTO 18 % (21-46); MONOCYTES ABSOLUTE AUTO 0.89 K/mm3 (0.16-1.47); MONOCYTES PERCENT AUTO 6 % (4-13); Mean Corpuscular HGB 27.7 pg (26.0-34.0); Mean Corpuscular HGB Conc 32.4 g/dL (31.5-36.5); Mean Corpuscular Volume 86 fL (80-100); Mean Platelet Volume 10.4 fL (9.1-12.4); NEUTROPHILS ABSOLUTE AUTO 10.54 K/mm3 (1.96-9.15); NEUTROPHILS PERCENT AUTO 74 % (41-73); Platelet Count 228 K/mm3 (150-400); RDW Coefficient Variation 13.5 % (11.7-14.2); RDW Standard Deviation 41.8 fL (35.1-46.3); White Blood Cell Count 14.16 K/mm3 (4.00-11.30)
[2020-06-26 21:50] LABS: Alanine Aminotransfer (ALT/SGP 20 U/L (12-78); Albumin, Blood 3.3 g/dL (3.4-5.0); Alk Phos 103 U/L (50-136); Anion Gap 8 mmol/L (6-16); Aspartate Aminotrans (AST/SGOT 12 U/L (12-37); Bilirubin, Total 0.3 mg/dL (0.1-1.0); Blood Urea Nitrogen 15 mg/dL (8-24); Bun/Creatinine Ratio 21.9 (12.0-20.0); CO2, Blood 26 mmol/L (21-32); Calcium, Blood 8.8 mg/dL (8.5-10.1); Chloride, Blood 106 mmol/L (98-108); Creatinine, Blood 0.68 mg/dL (0.40-1.00); Globulin, Blood 3.4 g/dL (2.2-4.0); Glomerular Filtration Rate >60 (60-); Glucose, Blood 153 mg/dL (70-99); Potassium, Blood 3.7 mmol/L (3.5-5.5); Sodium, Blood 140 mmol/L (136-145); Total Protein, Blood 6.7 g/dL (6.4-8.2)
[2020-06-26] MEDS ORDERED: CYCL10 PO (22:58)
== END 2020-06-27 00:11 | disposition home or self-care (01) ==
LOC: ER 21:05
PROVIDERS: Physician Assistant
DX: R10.9 Unspecified abdominal pain (principal); M54.5 Low back pain
CPT/HCPCS: 74177; 80053; 81025; 83690; 85025; 99284-25; Q9967

== ENCOUNTER 2020-07-25 09:28 | Day surgery (SDC) | payer OTHER ==
[~2020-07-25 09:28] MED LIST changes: +CYCL10 PO
== END 2020-07-25 22:46 | disposition home or self-care (01) ==
LOC: MOI US 09:28 → MOI MAM 10:15 → MOI US 22:46
DX: D24.2 Benign neoplasm of left breast (principal)
CPT/HCPCS: 19083; 77065; 88305; A4648

== ENCOUNTER 2020-09-28 21:26 | Emergency (ER) | payer OTHER ==
[~2020-09-28] VITALS: Ht 167.6 cm; Wt 81.7 kg
[2020-09-28 21:58] LABS: BASOPHILS ABSOLUTE AUTO 0.01 K/mm3 (0.00-0.23); BASOPHILS PERCENT AUTO 0 % (0-2); EOSINOPHILS PERCENT AUTO 0 % (0-6); Hematocrit 41.8 % (33.0-51.0); Hemoglobin 13.6 g/dL (11.5-16.0); IMMATURE GRAN ABSOLUTE AUTO 0.05 K/mm3 (0.00-0.10); IMMATURE GRAN PERCENT AUTO 1 % (0-1); LYMPHOCYTES PERCENT AUTO 5 % (21-46); MONOCYTES PERCENT AUTO 4 % (4-13); Mean Corpuscular HGB 27.5 pg (26.0-34.0); Mean Corpuscular HGB Conc 32.5 g/dL (31.5-36.5); Mean Corpuscular Volume 85 fL (80-100); Mean Platelet Volume 10.9 fL (9.1-12.4); NEUTROPHILS ABSOLUTE AUTO 8.45 K/mm3 (1.96-9.15); NEUTROPHILS PERCENT AUTO 90 % (41-73); Platelet Count 160 K/mm3 (150-400); RDW Coefficient Variation 13.2 % (11.7-14.2); RDW Standard Deviation 40.9 fL (35.1-46.3); Red Blood Cell Count 4.94 M/mm3 (3.80-5.20); White Blood Cell Count 9.41 K/mm3 (4.00-11.30)
[2020-09-28 22:19] LABS: Alanine Aminotransfer (ALT/SGP 19 U/L (12-78); Albumin, Blood 3.5 g/dL (3.4-5.0); Alk Phos 93 U/L (50-136); Anion Gap 10 mmol/L (6-16); Aspartate Aminotrans (AST/SGOT 13 U/L (12-37); Bilirubin, Total 0.2 mg/dL (0.1-1.0); Blood Urea Nitrogen 8 mg/dL (8-24); Bun/Creatinine Ratio 9.7 (12.0-20.0); CO2, Blood 21 mmol/L (21-32); Calcium, Blood 8.4 mg/dL (8.5-10.1); Chloride, Blood 105 mmol/L (98-108); Creatinine, Blood 0.82 mg/dL (0.40-1.00); Globulin, Blood 3.4 g/dL (2.2-4.0); Glomerular Filtration Rate >60 (60-); Glucose, Blood 183 mg/dL (70-99); Potassium, Blood 2.9 mmol/L (3.5-5.5); Sodium, Blood 136 mmol/L (136-145); Total Protein, Blood 6.9 g/dL (6.4-8.2); Troponin I <0.015 ng/mL (0.000-0.040)
[2020-09-28 22:58] LABS: Magnesium, Blood 1.7 mg/dL (1.6-2.4)
[2020-09-29 01:05] LABS: Source, Urine Clean Catch
[2020-09-29 01:08] LABS: Bilirubin, Urine Neg (Neg); Blood, Urine Neg (Neg); Glucose Qualitative, Urine 4+ (Neg); Ketones, Urine Neg (Neg); Leukocyte Esterase, Urine 1+ (Neg); Nitrite, Urine Neg (Neg); Protein, Urine Neg (Neg); Specific Gravity, Urine 1.005 (1.003-1.022); Urobilinogen, Urine NORM (Normal)
[2020-09-29 01:18] LABS: Appearance, Urine Clear (Clear); Color, Urine Yellow (P-Yellow)
[2020-09-29 01:23] LABS: Bacteria Few /hpf; Red Blood Cells, Urine 0-2 /hpf (0-2); Squamous Epithelial Cells Few /hpf (Few)
== END 2020-09-29 04:00 | disposition home or self-care (01) ==
LOC: ER 21:26
PROVIDERS: Emergency Medicine
DX: U07.1 COVID-19 (principal); J12.82 Pneumonia due to coronavirus disease 2019; J44.9 Chronic obstructive pulmonary disease, unspecified; I10 Essential (primary) hypertension; E11.9 Type 2 diabetes mellitus without complications; Z79.899 Other long term (current) drug therapy; Z88.6 Allergy status to analgesic agent; Z88.1 Allergy status to other antibiotic agents; Z88.8 Allergy status to other drugs, medicaments and biological substances
CPT/HCPCS: 36415; 71045; 71260; 80053; 81001; 83690; 83735; 84484; 84703; 85025; 85379; 87086; 93005; 93010; 94640; 99285-25; A9270; J7120; Q9967

== ENCOUNTER 2021-09-14 21:11 | Emergency (ER) | payer OTHER ==
[~2021-09-14] VITALS: Ht 167.6 cm; Wt 93.0 kg
[~2021-09-14 21:11] MED LIST changes: +ATEN50 PO; +LOSA25 PO; +ZOLOFT50 MG
== END 2021-09-15 01:13 | disposition home or self-care (01) ==
LOC: ER 21:11
DX: O98.511 Other viral diseases complicating pregnancy, first trimester (principal); U07.1 COVID-19; O99.511 Diseases of the respiratory system complicating pregnancy, first trimester; J45.909 Unspecified asthma, uncomplicated; Z3A.12 12 weeks gestation of pregnancy; O24.311 Unspecified pre-existing diabetes mellitus in pregnancy, first trimester; O10.911 Unspecified pre-existing hypertension complicating pregnancy, first trimester; Z88.6 Allergy status to analgesic agent; Z88.1 Allergy status to other antibiotic agents; Z88.8 Allergy status to other drugs, medicaments and biological substances; Z79.899 Other long term (current) drug therapy
CPT/HCPCS: 71045; 94640; 94664; 99285-25

== ENCOUNTER 2021-11-29 08:34 | Emergency (ER) | payer OTHER ==
[~2021-11-29] VITALS: Ht 167.6 cm; Wt 86.2 kg
== END 2021-11-29 10:43 | disposition home or self-care (01) ==
LOC: ER 08:34
DX: O9A.212 Injury, poisoning and certain other consequences of external causes complicating pregnancy, second trimester (principal); S90.31XA Contusion of right foot, initial encounter; O99.512 Diseases of the respiratory system complicating pregnancy, second trimester; J44.9 Chronic obstructive pulmonary disease, unspecified; O24.912 Unspecified diabetes mellitus in pregnancy, second trimester; E11.9 Type 2 diabetes mellitus without complications; O16.2 Unspecified maternal hypertension, second trimester; Z3A.24 24 weeks gestation of pregnancy; W20.8XXA Other cause of strike by thrown, projected or falling object, initial encounter; Z79.899 Other long term (current) drug therapy
CPT/HCPCS: 73630

== ENCOUNTER → 2022-02-03 | Outpatient (CLI) | payer OTHER | END | disposition home or self-care (01) | LOC: LAB SHORT 10:00 → LAB 10:00 | PROVIDERS: Advanced Practice Midwife | DX: O60.03 Preterm labor without delivery, third trimester (principal) | CPT/HCPCS: 82731 ==

== ENCOUNTER 2022-02-11 09:17 | Emergency (ER) | payer OTHER ==
[~2022-02-11] VITALS: Ht 167.6 cm; Wt 90.7 kg
[2022-02-11 10:59] LABS: BASOPHILS ABSOLUTE AUTO 0.04 K/mm3 (0.00-0.23); BASOPHILS PERCENT AUTO 0 % (0-2); EOSINOPHILS PERCENT AUTO 0 % (0-6); Hematocrit 40.1 % (33.0-51.0); Hemoglobin 13.5 g/dL (11.5-16.0); IMMATURE GRAN ABSOLUTE AUTO 0.07 K/mm3 (0.00-0.10); IMMATURE GRAN PERCENT AUTO 1 % (0-1); LYMPHOCYTES ABSOLUTE AUTO 0.89 K/mm3 (0.84-5.20); LYMPHOCYTES PERCENT AUTO 9 % (21-46); MONOCYTES ABSOLUTE AUTO 0.44 K/mm3 (0.16-1.47); MONOCYTES PERCENT AUTO 4 % (4-13); Mean Corpuscular HGB Conc 33.7 g/dL (31.5-36.5); Mean Corpuscular Volume 83 fL (80-100); NEUTROPHILS ABSOLUTE AUTO 9.01 K/mm3 (1.96-9.15); NEUTROPHILS PERCENT AUTO 86 % (41-73); Platelet Count 212 K/mm3 (150-400); RDW Coefficient Variation 13.9 % (11.7-14.2); RDW Standard Deviation 41.9 fL (35.1-46.3); Red Blood Cell Count 4.82 M/mm3 (3.80-5.20); White Blood Cell Count 10.45 K/mm3 (4.00-11.30)
[2022-02-11 11:19] LABS: Albumin, Blood 2.7 g/dL (3.4-5.0); Albumin/Globulin Ratio 0.8 (0.8-1.8); Bilirubin, Total 0.4 mg/dL (0.1-1.0); Bun/Creatinine Ratio 14.4 (12.0-20.0); Calcium, Blood 8.8 mg/dL (8.5-10.1); Creatinine, Blood 0.42 mg/dL (0.40-1.00); Globulin, Blood 3.5 g/dL (2.2-4.0); Total Protein, Blood 6.2 g/dL (6.4-8.2)
[2022-02-11] MEDS ORDERED: ALBU2.5V5 INH (12:41)
== END 2022-02-11 13:38 | disposition home or self-care (01) ==
LOC: ER 09:17
PROVIDERS: Physician Assistant
DX: O99.513 Diseases of the respiratory system complicating pregnancy, third trimester (principal); J45.901 Unspecified asthma with (acute) exacerbation; J43.9 Emphysema, unspecified; O24.913 Unspecified diabetes mellitus in pregnancy, third trimester; E11.9 Type 2 diabetes mellitus without complications; O16.3 Unspecified maternal hypertension, third trimester; Z88.6 Allergy status to analgesic agent; Z88.8 Allergy status to other drugs, medicaments and biological substances; Z88.1 Allergy status to other antibiotic agents; Z79.899 Other long term (current) drug therapy; Z3A.33 33 weeks gestation of pregnancy
CPT/HCPCS: 36415; 71045; 80053; 85025; 94644; 94664; 99285-25

== ENCOUNTER 2022-02-25 18:43 | Observation (INO) | payer OTHER ==
[~2022-02-25] VITALS: Ht 165.1 cm; Wt 92.1 kg
[2022-02-25 19:57] LABS: Source, Urine Clean Catch
[2022-02-25 20:03] LABS: BASOPHILS ABSOLUTE AUTO 0.02 K/mm3 (0.00-0.23); BASOPHILS PERCENT AUTO 0 % (0-2); EOSINOPHILS PERCENT AUTO 0 % (0-6); Hematocrit 40.1 % (33.0-51.0); Hemoglobin 13.3 g/dL (11.5-16.0); IMMATURE GRAN ABSOLUTE AUTO 0.06 K/mm3 (0.00-0.10); IMMATURE GRAN PERCENT AUTO 1 % (0-1); LYMPHOCYTES ABSOLUTE AUTO 1.29 K/mm3 (0.84-5.20); LYMPHOCYTES PERCENT AUTO 13 % (21-46); MONOCYTES ABSOLUTE AUTO 0.82 K/mm3 (0.16-1.47); MONOCYTES PERCENT AUTO 8 % (4-13); Mean Corpuscular HGB 27.6 pg (26.0-34.0); Mean Corpuscular HGB Conc 33.2 g/dL (31.5-36.5); Mean Corpuscular Volume 83 fL (80-100); Mean Platelet Volume 10.5 fL (9.1-12.4); NEUTROPHILS ABSOLUTE AUTO 8.06 K/mm3 (1.96-9.15); NEUTROPHILS PERCENT AUTO 79 % (41-73); Platelet Count 235 K/mm3 (150-400); RDW Coefficient Variation 13.8 % (11.7-14.2); RDW Standard Deviation 41.9 fL (35.1-46.3); Red Blood Cell Count 4.82 M/mm3 (3.80-5.20); White Blood Cell Count 10.25 K/mm3 (4.00-11.30)
[2022-02-25 20:11] LABS: Bilirubin, Urine Neg (Neg); Blood, Urine Neg (Neg); Glucose Qualitative, Urine 2+ (Neg); Ketones, Urine 1+ (Neg); Leukocyte Esterase, Urine Neg (Neg); Nitrite, Urine Neg (Neg); Protein, Urine Neg (Neg); Urobilinogen, Urine NORM (Normal); pH, Urine 6.5 (5.0-8.0)
[2022-02-25 20:19] LABS: Appearance, Urine Clear (Clear); Color, Urine Pale Yellow (P-Yellow)
[2022-02-25 20:20] LABS: International Normalized Ratio 0.91; Prothrombin Time Results 9.6 Sec (9.7-11.5)
[2022-02-25 20:23] LABS: Albumin, Blood 2.7 g/dL (3.4-5.0); Albumin/Globulin Ratio 0.8 (0.8-1.8); Bilirubin, Total 0.4 mg/dL (0.1-1.0); Bun/Creatinine Ratio 18.3 (12.0-20.0); Calcium, Blood 9.2 mg/dL (8.5-10.1); Creatinine, Blood 0.44 mg/dL (0.40-1.00); Globulin, Blood 3.3 g/dL (2.2-4.0); Potassium, Blood 3.8 mmol/L (3.5-5.5)
[2022-02-25 20:35] LABS: Protein, Urine Random <5.0 mg/dL (0.0-11.9); Protein/Creat Ratio, Ur Random Unable to Calculate
[2022-02-26] MEDS ORDERED: METF500 PO (15:41)
[2022-02-26] MEDS ORDERED: LABE200 PO (15:42)
[2022-02-26] MEDS ORDERED: PRED20 PO (15:42)
[2022-02-26] MEDS ORDERED: NIFE30ER PO (15:42)
== END 2022-02-26 16:45 | disposition home or self-care (01) ==
LOC: OBS 18:43 → BC 18:43 → OBS 20:00 → BC 21:00
PROVIDERS: Family Medicine; ADMIT Nurse Practitioner Obstetrics & Gynecology
DX: O10.013 Pre-existing essential hypertension complicating pregnancy, third trimester (principal); Z3A.35 35 weeks gestation of pregnancy; O24.113 Pre-existing type 2 diabetes mellitus, in pregnancy, third trimester; Z79.84 Long term (current) use of oral hypoglycemic drugs; Z88.0 Allergy status to penicillin; Z88.8 Allergy status to other drugs, medicaments and biological substances; O99.513 Diseases of the respiratory system complicating pregnancy, third trimester; J45.909 Unspecified asthma, uncomplicated; E05.00 Thyrotoxicosis with diffuse goiter without thyrotoxic crisis or storm; O99.283 Endocrine, nutritional and metabolic diseases complicating pregnancy, third trimester; G43.909 Migraine, unspecified, not intractable, without status migrainosus; O99.353 Diseases of the nervous system complicating pregnancy, third trimester
CPT/HCPCS: 59025; 76816; 76819; 80053; 81003; 82570; 82947; 83615; 84156; 85025; 85384; 85610; 85730; A9270; G0378

== ENCOUNTER 2022-03-09 20:05 | Inpatient (IN) | payer OTHER ==
[~2022-03-09] VITALS: Ht 167.6 cm; Wt 93.2 kg
[~2022-03-09 20:05] MED LIST changes: +LABE200 PO; +METF500 PO; +NIFE30ER PO
[2022-03-09 20:52] LABS: BASOPHILS ABSOLUTE AUTO 0.02 K/mm3 (0.00-0.23); BASOPHILS PERCENT AUTO 0 % (0-2); EOSINOPHILS ABSOLUTE AUTO 0.01 K/mm3 (0.00-0.68); EOSINOPHILS PERCENT AUTO 0 % (0-6); Hematocrit 40.3 % (33.0-51.0); Hemoglobin 13.7 g/dL (11.5-16.0); IMMATURE GRAN ABSOLUTE AUTO 0.04 K/mm3 (0.00-0.10); IMMATURE GRAN PERCENT AUTO 1 % (0-1); LYMPHOCYTES ABSOLUTE AUTO 1.32 K/mm3 (0.84-5.20); LYMPHOCYTES PERCENT AUTO 15 % (21-46); MONOCYTES ABSOLUTE AUTO 0.73 K/mm3 (0.16-1.47); MONOCYTES PERCENT AUTO 8 % (4-13); Mean Corpuscular HGB 27.6 pg (26.0-34.0); Mean Corpuscular Volume 81 fL (80-100); Mean Platelet Volume 10.2 fL (9.1-12.4); NEUTROPHILS ABSOLUTE AUTO 6.76 K/mm3 (1.96-9.15); NEUTROPHILS PERCENT AUTO 76 % (41-73); Platelet Count 230 K/mm3 (150-400); RDW Standard Deviation 40.7 fL (35.1-46.3); Red Blood Cell Count 4.96 M/mm3 (3.80-5.20); White Blood Cell Count 8.88 K/mm3 (4.00-11.30)
[2022-03-09 21:11] LABS: Albumin, Blood 2.7 g/dL (3.4-5.0); Albumin/Globulin Ratio 0.8 (0.8-1.8); Bilirubin, Total 0.3 mg/dL (0.1-1.0); Bun/Creatinine Ratio 19.5 (12.0-20.0); Creatinine, Blood 0.51 mg/dL (0.40-1.00); Globulin, Blood 3.5 g/dL (2.2-4.0); Potassium, Blood 3.9 mmol/L (3.5-5.5); Total Protein, Blood 6.2 g/dL (6.4-8.2)
[2022-03-09] MEDS ORDERED: LABE200 PO (21:28)
--- NOTE | 2022-03-10 04:02 | NUR ---
Pt took 200mg labetolol PO from her home medication
[2022-03-10 20:52] LABS: PCO2 Cord - Arterial 48.7 mmHg (40-50); pH Cord - Arterial 7.36 (7.28-7.35)
[2022-03-10 20:53] LABS: PO2 Cord - Arterial < 14 mmHg (16-20)
[2022-03-10 20:54] LABS: PCO2 Cord - Venous 37.8 mmHg (40-50); PO2 Cord - Venous 18.5 mmHg (28-32); pH Umbilical Cord - Venous 7.43 (7.26-7.35)
--- NOTE | 2022-03-10 21:03 | NUR ---
03/10/222102 Ros Villegas INDWELLING VILLEGAS PLACED [birth year] AT 2024 VIABLE FEMALE BORN AT 2033
[2022-03-11 06:06] LABS: BASOPHILS ABSOLUTE AUTO 0.03 K/mm3 (0.00-0.23); BASOPHILS PERCENT AUTO 0 % (0-2); EOSINOPHILS PERCENT AUTO 0 % (0-6); Hemoglobin 12.1 g/dL (11.5-16.0); IMMATURE GRAN ABSOLUTE AUTO 0.05 K/mm3 (0.00-0.10); IMMATURE GRAN PERCENT AUTO 0 % (0-1); LYMPHOCYTES ABSOLUTE AUTO 0.63 K/mm3 (0.84-5.20); LYMPHOCYTES PERCENT AUTO 6 % (21-46); MONOCYTES ABSOLUTE AUTO 0.57 K/mm3 (0.16-1.47); MONOCYTES PERCENT AUTO 5 % (4-13); Mean Corpuscular HGB 27.1 pg (26.0-34.0); Mean Corpuscular HGB Conc 32.7 g/dL (31.5-36.5); Mean Corpuscular Volume 83 fL (80-100); Mean Platelet Volume 10.5 fL (9.1-12.4); NEUTROPHILS ABSOLUTE AUTO 10.09 K/mm3 (1.96-9.15); NEUTROPHILS PERCENT AUTO 89 % (41-73); Platelet Count 200 K/mm3 (150-400); RDW Coefficient Variation 14.2 % (11.7-14.2); RDW Standard Deviation 42.5 fL (35.1-46.3); Red Blood Cell Count 4.46 M/mm3 (3.80-5.20); White Blood Cell Count 11.37 K/mm3 (4.00-11.30)
[2022-03-11 06:27] LABS: Albumin, Blood 2.2 g/dL (3.4-5.0); Albumin/Globulin Ratio 0.7 (0.8-1.8); Bilirubin, Total 0.6 mg/dL (0.1-1.0); Bun/Creatinine Ratio 15.4 (12.0-20.0); Calcium, Blood 8.5 mg/dL (8.5-10.1); Creatinine, Blood 0.58 mg/dL (0.40-1.00); Potassium, Blood 4.1 mmol/L (3.5-5.5); Total Protein, Blood 5.2 g/dL (6.4-8.2)
--- NOTE | 2022-03-11 18:52 | NUR ---
PT UP TO BATHROOM VOID AND PASSED GAS FEELS A LOT BETTER, BINDER BACK ON PT UP AMBULATING AROUND ROOM
--- NOTE | 2022-03-11 19:15 | NUR ---
Rept to pm shift
[2022-03-12 05:43] LABS: International Normalized Ratio 0.93; Prothrombin Time Results 9.8 Sec (9.7-11.5)
--- NOTE | 2022-03-12 22:30 | NUR ---
Patient c/o mild SOB, inhaler not helping. Wheezing heard in right upper lung. Clear in all other lobes. RT called for breathing treatment.
[2022-03-13 06:41] LABS: International Normalized Ratio 1.93; Prothrombin Time Results 19.4 Sec (9.7-11.5)
[2022-03-13] MEDS ORDERED: Percocet 5-3251 EACH PO (13:04)
[2022-03-13] MEDS ORDERED: WARF5 PO (13:05)
--- NOTE | 2022-03-13 14:25 | NUR ---
PRINTED DISCHARGE INSTRUCTIONS REVIEWED WITH PATIENT. ADDITIONAL QUESTIONS AND CONCERNS WERE ANSWERED. DISCHARGE TO HOME TO CARE OF .
--- NOTE | 2022-03-13 14:25 | NUR ---
PATIENT REFUSED FLU SHOT AND RUBELLA VACCINE.
== END 2022-03-13 14:53 | disposition home or self-care (01) | DRG 786 ==
LOC: OBS 20:05 → BC 20:05 → OBS 20:14 → BC 20:16
PROVIDERS: Obstetrics & Gynecology; ADMIT Nurse Practitioner Obstetrics & Gynecology
PROC: 10H07YZ Insertion of Other Device into Products of Conception, Via Natural or Artificial Opening (ICD-10-PCS; 2022-03-10)
PROC: 10D00Z1 Extraction of Products of Conception, Low, Open Approach (ICD-10-PCS; principal; 2022-03-10 22:15)
DX: O24.424 Gestational diabetes mellitus in childbirth, insulin controlled (principal); O99.42 Diseases of the circulatory system complicating childbirth; O10.92 Unspecified pre-existing hypertension complicating childbirth; O76 Abnormality in fetal heart rate and rhythm complicating labor and delivery; O64.0XX0 Obstructed labor due to incomplete rotation of fetal head, not applicable or unspecified; Z37.0 Single live birth; I27.20 Pulmonary hypertension, unspecified; O99.52 Diseases of the respiratory system complicating childbirth; O99.824 Streptococcus B carrier state complicating childbirth; J45.909 Unspecified asthma, uncomplicated; Z98.890 Other specified postprocedural states; Z88.8 Allergy status to other drugs, medicaments and biological substances; Z79.899 Other long term (current) drug therapy; Z79.52 Long term (current) use of systemic steroids; Z3A.37 37 weeks gestation of pregnancy; Z79.84 Long term (current) use of oral hypoglycemic drugs; Z88.1 Allergy status to other antibiotic agents; Z86.718 Personal history of other venous thrombosis and embolism
CPT/HCPCS: 36415; 80053; 82803; 82947; 85025; 85610; 86850; 86870; 86900; 86901; 94640; 94664; 94760; 94762; A9270; J0290; J0694; J1200; J1650; J2370; J2405; J2765; J3010; J7070; J7120; J7512; T2101

== ENCOUNTER 2022-03-23 09:33 | Emergency (ER) | payer OTHER ==
[~2022-03-23] VITALS: Ht 167.6 cm; Wt 89.8 kg
[~2022-03-23 09:33] MED LIST changes: +Percocet 5-3251 EACH PO; +WARF5 PO
[2022-03-23] MEDS ORDERED: CEPH500 PO (10:23)
== END 2022-03-23 10:27 | disposition home or self-care (01) ==
LOC: ER 09:33
DX: L03.115 Cellulitis of right lower limb (principal); E11.9 Type 2 diabetes mellitus without complications; I10 Essential (primary) hypertension; J43.9 Emphysema, unspecified; Z88.6 Allergy status to analgesic agent; Z88.8 Allergy status to other drugs, medicaments and biological substances; Z88.1 Allergy status to other antibiotic agents; Z79.899 Other long term (current) drug therapy; Z79.84 Long term (current) use of oral hypoglycemic drugs; Z79.01 Long term (current) use of anticoagulants
CPT/HCPCS: 99282

== ENCOUNTER 2022-06-24 20:28 | Emergency (ER) | payer OTHER ==
[~2022-06-24] VITALS: Ht 162.6 cm; Wt 93.0 kg
[~2022-06-24 20:28] MED LIST changes: +CEPH500 PO
[2022-06-24 21:40] LABS: BASOPHILS ABSOLUTE AUTO 0.03 K/mm3 (0.00-0.23); BASOPHILS PERCENT AUTO 0 % (0-2); EOSINOPHILS PERCENT AUTO 1 % (0-6); Hematocrit 43.2 % (33.0-51.0); IMMATURE GRAN ABSOLUTE AUTO 0.04 K/mm3 (0.00-0.10); IMMATURE GRAN PERCENT AUTO 0 % (0-1); LYMPHOCYTES ABSOLUTE AUTO 0.67 K/mm3 (0.84-5.20); LYMPHOCYTES PERCENT AUTO 7 % (21-46); MONOCYTES ABSOLUTE AUTO 0.68 K/mm3 (0.16-1.47); MONOCYTES PERCENT AUTO 7 % (4-13); Mean Corpuscular HGB 27.8 pg (26.0-34.0); Mean Corpuscular HGB Conc 32.4 g/dL (31.5-36.5); Mean Corpuscular Volume 86 fL (80-100); Mean Platelet Volume 10.6 fL (9.1-12.4); NEUTROPHILS PERCENT AUTO 84 % (41-73); Platelet Count 192 K/mm3 (150-400); RDW Coefficient Variation 14.6 % (11.7-14.2); RDW Standard Deviation 45.7 fL (35.1-46.3); Red Blood Cell Count 5.03 M/mm3 (3.80-5.20); White Blood Cell Count 9.32 K/mm3 (4.00-11.30)
[2022-06-24 21:50] LABS: Albumin, Blood 3.7 g/dL (3.4-5.0); Albumin/Globulin Ratio 1.2 (0.8-1.8); Bilirubin, Total 0.4 mg/dL (0.1-1.0); Bun/Creatinine Ratio 19.2 (12.0-20.0); Calcium, Blood 9.4 mg/dL (8.5-10.1); Creatinine, Blood 0.63 mg/dL (0.40-1.00); Globulin, Blood 3.2 g/dL (2.2-4.0); Potassium, Blood 3.9 mmol/L (3.5-5.5); Total Protein, Blood 6.9 g/dL (6.4-8.2)
[2022-06-24] MEDS ORDERED: ONDA4ODT MM (22:35)
== END 2022-06-24 23:30 | disposition home or self-care (01) ==
LOC: ER 20:28
PROVIDERS: Student in an Organized Health Care Education/Training Program
DX: R11.2 Nausea with vomiting, unspecified (principal); R19.7 Diarrhea, unspecified; R10.31 Right lower quadrant pain; E11.9 Type 2 diabetes mellitus without complications; I10 Essential (primary) hypertension; J43.9 Emphysema, unspecified; Z88.6 Allergy status to analgesic agent; Z88.8 Allergy status to other drugs, medicaments and biological substances; Z88.1 Allergy status to other antibiotic agents; Z79.899 Other long term (current) drug therapy; Z79.01 Long term (current) use of anticoagulants; Z79.84 Long term (current) use of oral hypoglycemic drugs
CPT/HCPCS: 36415; 74177; 80053; 83690; 84703; 85025; A9270; J2270; J2550; J7030; Q9967

== ENCOUNTER → 2022-11-10 | Outpatient (CLI) | payer OTHER | LOC: LAB SHORT 09:14 → PLD 09:14 | DX: D48.5 Neoplasm of uncertain behavior of skin (principal) | CPT/HCPCS: 88304; 88305 ==

== ENCOUNTER 2023-05-19 11:01 | Inpatient (IN) | payer OTHER ==
[~2023-05-19] VITALS: Ht 165.1 cm; Wt 91.8 kg
[2023-05-19 12:12] LABS: BASOPHILS ABSOLUTE AUTO 0.01 K/mm3 (0.00-0.23); BASOPHILS PERCENT AUTO 0 % (0-2); EOSINOPHILS PERCENT AUTO 0 % (0-6); Hematocrit 44.7 % (33.0-51.0); IMMATURE GRAN ABSOLUTE AUTO 0.02 K/mm3 (0.00-0.10); IMMATURE GRAN PERCENT AUTO 0 % (0-1); LYMPHOCYTES ABSOLUTE AUTO 1.17 K/mm3 (0.84-5.20); LYMPHOCYTES PERCENT AUTO 21 % (21-46); MONOCYTES ABSOLUTE AUTO 0.34 K/mm3 (0.16-1.47); MONOCYTES PERCENT AUTO 6 % (4-13); Mean Corpuscular HGB 27.2 pg (26.0-34.0); Mean Corpuscular HGB Conc 33.6 g/dL (31.5-36.5); Mean Corpuscular Volume 81 fL (80-100); Mean Platelet Volume 11.1 fL (9.1-12.4); NEUTROPHILS ABSOLUTE AUTO 4.17 K/mm3 (1.96-9.15); NEUTROPHILS PERCENT AUTO 73 % (41-73); Platelet Count 146 K/mm3 (150-400); RDW Coefficient Variation 12.6 % (11.7-14.2); RDW Standard Deviation 37.1 fL (35.1-46.3); Red Blood Cell Count 5.52 M/mm3 (3.80-5.20); White Blood Cell Count 5.71 K/mm3 (4.00-11.30)
[2023-05-19 12:48] LABS: Albumin, Blood 3.6 g/dL (3.4-5.0); Albumin/Globulin Ratio 1.1 (0.8-1.8); Bilirubin, Total 0.7 mg/dL (0.1-1.0); Bun/Creatinine Ratio 21.2 (12.0-20.0); Calcium, Blood 9.3 mg/dL (8.5-10.1); Creatinine, Blood 0.52 mg/dL (0.40-1.00); Globulin, Blood 3.2 g/dL (2.2-4.0); Potassium, Blood 3.5 mmol/L (3.5-5.5); Total Protein, Blood 6.8 g/dL (6.4-8.2)
[2023-05-19 13:17] LABS: Influenza A, PCR NEGATIVE (NEGATIVE); Influenza B, PCR NEGATIVE (NEGATIVE); Resp Syncytial Virus, PCR NEGATIVE (NEGATIVE); SARS-Cov-2 (COVID-19) PCR, MMC NEGATIVE (NEGATIVE)
[2023-05-19 17:15] LABS: Glucose, Blood 560 mg/dL (70-99)
--- NOTE | 2023-05-19 18:36 | NUR ---
ADMIT NOTE/SHIFT SUMMARY PT ARRIVED TO PCU FROM ED VIA ED STRETCHER AT APPROX 1700. PT AMBULATED FROM ED STRETCHER TO PCU BED. PT A&OX4. SP02>90% ON RA. DYSPNEA NOTED UPON ARRIVAL W/ AMBULATION. DIFFICULT TO SPEAK AT TIMES, PURSED LIP BREATHING. PT CURRENTLY NOT ENDORSING SOB. TELEMETRY SHOWS SINUS TACH, HR 130'S, INCREASES TO 140'S W/ AMBULATION. ENCOURAGED BSC TO LIMIT MOVEMENT. PT REFUSED. UP TO BATHROOM TO VOID/ HAVE BM. PT ENDORSES SOME RECTAL BLEEDING X3 WEEKS. PT STATES, "SOME BRIGHT RED, SOME DARK RED, NO BLACK". PT DENIES PAIN. CBG CHECKED ONCE ON FLOOR >500. LAB TO DRAW: 560. CALL PLACED TO MD AMBROSIO. MD AMBROSIO W/ ORDERS FOR HIGH SLIDING SCALE. MEDICATED PER EMAR. WILL RECHECK CBG. PT STATES CURRENTLY BREAST FEEDING. BABY AND CHILDREN IN ROOM WITH . FRIEND ALSO AT BEDSIDE. PT ORIENTED TO ROOM, CALL LIGHT. CALL LIGHT IN REACH.
[2023-05-19 19:36] VITALS: BP 147/91
--- NOTE | 2023-05-19 19:57 | NUR ---
ASSESSMENT/ASSUMED CARE PT SITTING UP IN BED WATCHING TV AND TALKING ON PHONE. UP TO BATHROOM WITH STANDBY ASSIST. GAIT STEADY. PT REPORTS HX FOR KNEES "BUCKELING". REMINDED PT TO CALL WHEN NEEDING TO GET UP TO PREVENT FALLS. LUNG CLEAR BUT DECREASED ON ROOMAIR. RESP EVEN AND NONLABORED. SOB NOTED WITH ACTIVITY, RESOLVES WITH REST. PT C/O HEADACHE AND KNEE PAIN. PT STATES,"I TAKE TYLENOL #3 FOR MY PAIN". CALL OUT TO HOSPITALIST FOR TYLENOL #3. BT+ ABD SOFT AND NONTENDER. DENIES N/V. PT EATING CHEESE AND MEAT. BLOOD GLUCOSE 398.
--- NOTE | 2023-05-19 20:48 | NUR ---
BLOOD GLUCOSE CALL TO HOSPITALIST REGARDING BLOOD GLUCOSE 398. PT HAS RECEIVED 6 UNITS OF HUMALOG FROM SLIDING SCALE. ADDITIONAL DOSE 4 UNITS HUMALOG GIVEN PER ORDER. CHANGING CBG TO Q6HR WITH HIGH SLIDING SCALE
[2023-05-19 23:42] VITALS: BP 147/89
--- NOTE | 2023-05-19 23:42 | NUR ---
PT SITTING UP IN BED VISITING WITH FAMILY AND WATCHING TV. BLOOD GLUCOSE 285, HUMALOG INSULIN GIVEN VIA EMAR.
[2023-05-20] VITALS (11 sets, daily range): BP systolic 139–172; BP diastolic 82–95
[2023-05-20 04:42] LABS: BASOPHILS ABSOLUTE AUTO 0.01 K/mm3 (0.00-0.23); BASOPHILS PERCENT AUTO 0 % (0-2); EOSINOPHILS PERCENT AUTO 0 % (0-6); Hematocrit 41.3 % (33.0-51.0); Hemoglobin 13.8 g/dL (11.5-16.0); IMMATURE GRAN ABSOLUTE AUTO 0.03 K/mm3 (0.00-0.10); IMMATURE GRAN PERCENT AUTO 0 % (0-1); LYMPHOCYTES ABSOLUTE AUTO 0.38 K/mm3 (0.84-5.20); LYMPHOCYTES PERCENT AUTO 5 % (21-46); MONOCYTES ABSOLUTE AUTO 0.32 K/mm3 (0.16-1.47); MONOCYTES PERCENT AUTO 4 % (4-13); Mean Corpuscular HGB 27.1 pg (26.0-34.0); Mean Corpuscular HGB Conc 33.4 g/dL (31.5-36.5); Mean Corpuscular Volume 81 fL (80-100); Mean Platelet Volume 10.9 fL (9.1-12.4); NEUTROPHILS ABSOLUTE AUTO 6.68 K/mm3 (1.96-9.15); NEUTROPHILS PERCENT AUTO 90 % (41-73); Platelet Count 150 K/mm3 (150-400); RDW Coefficient Variation 12.8 % (11.7-14.2); RDW Standard Deviation 37.6 fL (35.1-46.3); White Blood Cell Count 7.42 K/mm3 (4.00-11.30)
[2023-05-20 05:06] LABS: Bun/Creatinine Ratio 39.7 (12.0-20.0); Calcium, Blood 9.5 mg/dL (8.5-10.1); Creatinine, Blood 0.5 mg/dL (0.40-1.00); Potassium, Blood 4.2 mmol/L (3.5-5.5)
--- NOTE | 2023-05-20 05:21 | NUR ---
SHIFT SUMMARY PT AWAKE MOST OF THE NIGHT VISITING WITH FAMILY. IMPROVED BREATHING DURING THE NIGHT. CONT SOB WITH ACTIVITY. HEART RATE CONT SINUS TACH 100-130'S. BP STABLE. MED WITH TYLENOL #3 FOR HEAD ACHE AND KNEE PAIN WITH GOOD RESULTS. BLOOD GLUCOSE COMING DOWN. EXTRA DOSE OF INSULIN GIVEN AT HS, AND COVERAGE CHANGED TO Q6HR DURING THE NIGHT. POSSIBLE DISCHARGE. REPORT TO ON COMING NURSE
[2023-05-20] MEDS ORDERED: ADVAIR HFA 230-28 GM INH (11:36)
[2023-05-20] MEDS ORDERED: IPRAT-ALBUT 0.5-3 ML INH (11:37)
[2023-05-20] MEDS ORDERED: PROP50 PO (13:25)
[2023-05-20 15:26] LABS: Free Thyroxine 1.76 ng/dL (0.70-1.60); Thyroid Stimulating Hormone <0.005 uIU/mL (0.360-4.800); Triiodothyronine, Free 6.45 pg/mL (2.18-3.98)
--- NOTE | 2023-05-20 16:19 | NUR ---
MORNING/AFTERNOON EVENTS: THIS AFTERNOON THE PT WAS EXPERIENCING SOME CHEST PRESSURE THAT STARTED TO RADIATE TO HER BACK AND RIGHT ARM. THE PAIN IN HER ARM WAS DESCRIBED PINS AND NEEDLES. ALSO, THE PT WAS DESCRIBING PRESSURE IN HER HEAD THAT FELT "LIKE HER EYES AND EARS WERE GOING TO POP". HER SKIN BEGAN TO GET FLUSH AND HER NECK AND FACE BEGAN TO SWELL. HER BLOOD PRESSURE HAS BEEN RUNNING HIGH T/O THE DAY. I TALKED TO DR. AMBROSIO MULTIPLE TIMES TODAY AND SHE ORDERED THE PT A GI COCTAIL, 25MG LOSARTAN PO, AND A 10MG LABETALOL PUSH. AROUND 1300 DR. AMBROSIO, AND A FEW RESIDENTS CAME TO THE BEDSIDE TO EVALUATE THE PT, THEY ORDERED A CT-PE, EKG, TROP, LABS FOR THE PT'S THYROID, THEY ARE POSTPONING HER DISCHARGE, AND THEY RESTARTED HER TYROID MEDCATIONS. AROUND 1530 THE PT IS STARTING TO FEEL BETTER. HER BP AND HR ARE IMPROVING AND SHE IS LOOKING LESS FLUSHED. THE PT STATES THE PRESSURE IN HER CHEST HAS ALMOST SUBSIDED. SEE NOTES FOR ANY UPDATES.
--- NOTE | 2023-05-20 17:58 | NUR ---
SHIFT SUMMARY THE PT IS A&OX4. CALLS APPROPRAITELY, AND CAN MAKE HER NEEDS KNOWN. SHE HAD AN EVENTFUL AFTERNOON, SEE PREVIOUS NOTE FOR MORE INFORMATION. CURRENTLY THE PT DENIES ANY CHEST PRESSURE, BP IS COMING DOWN, AND SHE IS DENYING HEAD PRESSURE. SHE IS ST 110'S-120'S ON TELE. HE IS AT THE BEDSIDE WITH TWO OF HER KIDS. SHEIS ACHS AND I HAVE BEEN HAVING HER PRACTICE READING A SLIDING SCALE AND DOSING HERSELF WITH THE INSULIN PEN. THE PT IS NOT HAVING SOB AT THIS TIME, BUT HAS BEEN HAVIG BREATHING TREATMENT T/O THE DAY. SHE PERIODICALL GETS SOB, AND GETS RELIEF W/ THE TREATMENTS FROM RT. VS STABLE AT THIS TIME. SEE NOTE FOR ANY UPDATES. FIRE IGNITION RISK HAS BEEN ASSESSED.
[2023-05-20 21:48] LABS: BASOPHILS ABSOLUTE AUTO 0.01 K/mm3 (0.00-0.23); BASOPHILS PERCENT AUTO 0 % (0-2); EOSINOPHILS PERCENT AUTO 0 % (0-6); Hematocrit 39.6 % (33.0-51.0); Hemoglobin 13.2 g/dL (11.5-16.0); IMMATURE GRAN ABSOLUTE AUTO 0.02 K/mm3 (0.00-0.10); IMMATURE GRAN PERCENT AUTO 0 % (0-1); LYMPHOCYTES ABSOLUTE AUTO 0.61 K/mm3 (0.84-5.20); LYMPHOCYTES PERCENT AUTO 8 % (21-46); MONOCYTES ABSOLUTE AUTO 0.52 K/mm3 (0.16-1.47); MONOCYTES PERCENT AUTO 6 % (4-13); Mean Corpuscular HGB 27.5 pg (26.0-34.0); Mean Corpuscular HGB Conc 33.3 g/dL (31.5-36.5); Mean Corpuscular Volume 83 fL (80-100); Mean Platelet Volume 10.9 fL (9.1-12.4); NEUTROPHILS ABSOLUTE AUTO 7.02 K/mm3 (1.96-9.15); NEUTROPHILS PERCENT AUTO 86 % (41-73); Platelet Count 151 K/mm3 (150-400); RDW Coefficient Variation 13.2 % (11.7-14.2); RDW Standard Deviation 39.8 fL (35.1-46.3); White Blood Cell Count 8.18 K/mm3 (4.00-11.30)
[2023-05-21 04:24] VITALS: BP 137/75
[2023-05-21 04:32] LABS: BASOPHILS PERCENT AUTO 0 % (0-2); EOSINOPHILS PERCENT AUTO 0 % (0-6); Hematocrit 41.8 % (33.0-51.0); Hemoglobin 13.8 g/dL (11.5-16.0); IMMATURE GRAN ABSOLUTE AUTO 0.04 K/mm3 (0.00-0.10); IMMATURE GRAN PERCENT AUTO 1 % (0-1); LYMPHOCYTES ABSOLUTE AUTO 0.61 K/mm3 (0.84-5.20); LYMPHOCYTES PERCENT AUTO 8 % (21-46); MONOCYTES ABSOLUTE AUTO 0.35 K/mm3 (0.16-1.47); MONOCYTES PERCENT AUTO 4 % (4-13); Mean Corpuscular HGB 27.2 pg (26.0-34.0); Mean Corpuscular Volume 82 fL (80-100); Mean Platelet Volume 11.1 fL (9.1-12.4); NEUTROPHILS ABSOLUTE AUTO 7.02 K/mm3 (1.96-9.15); NEUTROPHILS PERCENT AUTO 88 % (41-73); Platelet Count 156 K/mm3 (150-400); RDW Coefficient Variation 13.2 % (11.7-14.2); RDW Standard Deviation 39.2 fL (35.1-46.3); Red Blood Cell Count 5.07 M/mm3 (3.80-5.20); White Blood Cell Count 8.02 K/mm3 (4.00-11.30)
[2023-05-21 04:47] LABS: Bun/Creatinine Ratio 47.1 (12.0-20.0); Calcium, Blood 9.2 mg/dL (8.5-10.1); Creatinine, Blood 0.51 mg/dL (0.40-1.00); Potassium, Blood 4.8 mmol/L (3.5-5.5)
--- NOTE | 2023-05-21 04:59 | NUR ---
SHIFT SUMMARY ASSUMED CARE OF PT AT 1900. PT IS A/OX4. HEART SOUNDS REGULAR. LUNG SOUNDS HAVE EXPIRATORY WHEEZES. PT HAS DRY COUGH. PT SKIN IS FLUSHED AND HOT T/O NOC. PT WAS INDEPENDENT TO BATHROOM. PT SHOWED THIS NURSE BRIGHT RED BLOOD IN HER STOOL. PT C/O SOME LOWER ABD DISCOMFORT. HOSPITALIST NOTIFIED AND REVEIWED CHART. REPEAT CBC ORDERED. PT VITALS AND LABS STABLE.
[2023-05-21 07:20] VITALS: BP 139/88
[2023-05-21] MEDS ORDERED: BASAGLAR K100 UNIT/1 SC (09:12)
[2023-05-21 11:23] VITALS: BP 145/86
[2023-05-21] MEDS ORDERED: FAMO20 PO (11:49)
[2023-05-21] MEDS ORDERED: HUMULIN R100 UNIT/2 SC (11:49)
[2023-05-21] MEDS ORDERED: SPIRIVA RESPIMAT4 G3 INH (11:49)
[2023-05-21] MEDS ORDERED: HUMALOG KW100 UNIT/1 SC (11:58)
--- NOTE | 2023-05-21 13:16 | NUR ---
DISCHARGE SUMMARY PT HAS HAD NO EVENTS THIS MORNING. SHE DISCHARGED ABOUT 1310. HER BELONGINGS WERE SENT WITH HER. ALL DISCHARGE INSTRUCTION WERE GONE OVER WITH THE PT AND I HAD THE PT DEMONSTRATE TEACH BACK. THROUGHOUT THE LAST TWO DAY THE PT HAS BEEN DEMONSTRATING HOW TO READING INSULIN SLIDING SCALES AND HOW TO PROPERLY ADMINISTER INSULIN TO HERSELF. VS HAVE REMAINED STABLE. MEDICATIONS WERE FAXED TO [facility].
== END 2023-05-21 13:10 | disposition home or self-care (01) | DRG 203 ==
LOC: ER 11:01 → PCU 11:02
PROVIDERS: Family Medicine; Internal Medicine; Student in an Organized Health Care Education/Training Program; ADMIT Internal Medicine
DX: J45.51 Severe persistent asthma with (acute) exacerbation (principal); T78.49XA Other allergy, initial encounter; F43.9 Reaction to severe stress, unspecified; J32.8 Other chronic sinusitis; E05.00 Thyrotoxicosis with diffuse goiter without thyrotoxic crisis or storm; G43.909 Migraine, unspecified, not intractable, without status migrainosus; I10 Essential (primary) hypertension; E11.65 Type 2 diabetes mellitus with hyperglycemia; T38.0X5A Adverse effect of glucocorticoids and synthetic analogues, initial encounter; R07.9 Chest pain, unspecified; Z88.6 Allergy status to analgesic agent; Z88.1 Allergy status to other antibiotic agents; Z88.8 Allergy status to other drugs, medicaments and biological substances; Z79.01 Long term (current) use of anticoagulants; Z79.84 Long term (current) use of oral hypoglycemic drugs; Z79.52 Long term (current) use of systemic steroids; Z11.52 Encounter for screening for COVID-19
CPT/HCPCS: 0241U; 36415; 71045; 71260; 80048; 80053; 82947; 83735; 84439; 84443; 84481; 84484; 85025; 93005; 93010; 94640; 94644; 94645; 94664; 94760; 96372; 96374; 96375; 96376; 99284-25; A9270; G0378; J0171; J1100; J1200; J1650; J1815; J2405; J7030; J7512; Q9967

== ENCOUNTER 2023-06-07 22:00 | Emergency (ER) | payer OTHER ==
[~2023-06-07] VITALS: Ht 165.1 cm; Wt 93.0 kg
[~2023-06-07 22:00] MED LIST changes: +ADVAIR HFA 230-28 GM INH; +Amoxicillin500 M1 PO; +BASAGLAR K100 UNIT/1 SC; +CODACE30 PO; +FAMO20 PO; +Guaifenesin Wit10 ML PO; +HUMALOG KW100 UNIT/1 SC; +HUMULIN R100 UNIT/2 SC; +IPRAT-ALBUT 0.5-3 ML INH; +METF500C PO; +NOVOLIN N100 UNIT/2 SQ; +PROP50 PO; +SPIRIVA RESPIMAT4 G3 INH
[2023-06-08] MEDS ORDERED: Famotidine 20 MG Tab PO ONE (00:10)
[2023-06-08] MEDS ORDERED: Doxycycline Hyclate 100 MG TAB PO ONE (00:10)
[2023-06-08] MEDS ORDERED: Doxycycline Mo100 M1 PO (00:11)
[2023-06-08 00:15] VITALS: BP 152/96
== END 2023-06-08 00:25 | disposition home or self-care (01) ==
LOC: ER 22:00
DX: R21 Rash and other nonspecific skin eruption (principal); K14.0 Glossitis; R07.0 Pain in throat; T36.1X5A Adverse effect of cephalosporins and other beta-lactam antibiotics, initial encounter; J44.89 Other specified chronic obstructive pulmonary disease; E11.9 Type 2 diabetes mellitus without complications; I10 Essential (primary) hypertension; E05.00 Thyrotoxicosis with diffuse goiter without thyrotoxic crisis or storm; Z79.52 Long term (current) use of systemic steroids; Z79.51 Long term (current) use of inhaled steroids; Z79.84 Long term (current) use of oral hypoglycemic drugs; Z79.899 Other long term (current) drug therapy; Z88.1 Allergy status to other antibiotic agents; Z88.6 Allergy status to analgesic agent; Z88.8 Allergy status to other drugs, medicaments and biological substances; Z91.018 Allergy to other foods
CPT/HCPCS: 99284; A9270

== ENCOUNTER 2023-11-20 21:05 | Observation (INO) | payer OTHER ==
[~2023-11-20] VITALS: Ht 162.6 cm; Wt 86.2 kg
[~2023-11-20 21:05] MED LIST changes: +Doxycycline Mo100 M1 PO
[2023-11-20] MEDS ORDERED: DiphenhydrAMINE HCl 50 MG/ML 1ML Vial IV ONE (21:30)
[2023-11-20] MEDS ORDERED: Magnesium Sulf 2 GM/Water 50ML 50 ML IV ONE (21:30)
[2023-11-20] MEDS ORDERED: Dexamethasone Sod Phos 10 MG/ML 1ML VIAL IV ONE (21:30)
[2023-11-20] MEDS ORDERED: EpiNEPhrine 1 MG/1 ML 1ML Vial IM ONE (21:35)
[2023-11-20] MEDS ORDERED: EPINEPhrine HCl 1 MG/ML 1ML Amp IM ONE (21:35)
[2023-11-20] MEDS ORDERED: NS 1,000 ML IV SCH ×2 (21:35→22:00)
[2023-11-20] MEDS ORDERED: Albuterol 2.5 MG/3 ML VIAL INH SCH ×2 (21:35→22:40)
[2023-11-20] MEDS ORDERED: Ipratropium/Albuterol SulF 2.5-0.5MG/3 ML Amp INH ONE (21:35)
[2023-11-20 21:42] LABS: BASOPHILS ABSOLUTE AUTO 0.03 K/mm3 (0.00-0.23); BASOPHILS PERCENT AUTO 0 % (0-2); EOSINOPHILS PERCENT AUTO 0 % (0-6); Hematocrit 43.2 % (33.0-51.0); Hemoglobin 14.3 g/dL (11.5-16.0); IMMATURE GRAN ABSOLUTE AUTO 0.14 K/mm3 (0.00-0.10); IMMATURE GRAN PERCENT AUTO 1 % (0-1); LYMPHOCYTES ABSOLUTE AUTO 0.79 K/mm3 (0.84-5.20); LYMPHOCYTES PERCENT AUTO 5 % (21-46); MONOCYTES ABSOLUTE AUTO 0.89 K/mm3 (0.16-1.47); MONOCYTES PERCENT AUTO 6 % (4-13); Mean Corpuscular HGB Conc 33.1 g/dL (31.5-36.5); Mean Corpuscular Volume 88 fL (80-100); Mean Platelet Volume 10.1 fL (9.1-12.4); NEUTROPHILS ABSOLUTE AUTO 13.77 K/mm3 (1.96-9.15); NEUTROPHILS PERCENT AUTO 88 % (41-73); Platelet Count 184 K/mm3 (150-400); RDW Coefficient Variation 14.4 % (11.7-14.2); RDW Standard Deviation 46.5 fL (35.1-46.3); Red Blood Cell Count 4.93 M/mm3 (3.80-5.20); White Blood Cell Count 15.62 K/mm3 (4.00-11.30)
[2023-11-20] MEDS ORDERED: Doxycycline Hyclate 100 MG in Dextrose 5% 250 ML IV ONE (22:00)
[2023-11-20] MEDS ORDERED: CefTRIAXone Sodium 1,000 MG in NS 50 ML IV ONE (22:00)
[2023-11-20] MEDS ORDERED: HYDROmorphone HCl/Pf 1MG SYR IV ONE (22:00)
[2023-11-20 22:05] LABS: Albumin, Blood 3.8 g/dL (3.4-5.0); Albumin/Globulin Ratio 1.2 (0.8-1.8); Bilirubin, Total 0.7 mg/dL (0.1-1.0); Bun/Creatinine Ratio 20.5 (12.0-20.0); Calcium, Blood 8.8 mg/dL (8.5-10.1); Creatinine, Blood 0.68 mg/dL (0.40-1.00); Globulin, Blood 3.1 g/dL (2.2-4.0); Magnesium, Blood 1.8 mg/dL (1.6-2.4); Potassium, Blood 3.6 mmol/L (3.5-5.5); Total Protein, Blood 6.9 g/dL (6.4-8.2)
[2023-11-20 22:28] LABS: Base Excess Venous -0.7 mmol/L; Bicarbonate Venous 24.1 mmol/L (24.0-30.0); PCO2 Venous 34.3 mmHg (38-42); pH Blood Venous 7.44 (7.34-7.37)
[2023-11-20] MEDS ORDERED: Ipratropium/Albuterol SulF 2.5-0.5MG/3 ML Amp INH SCH (22:35)
[2023-11-20 22:50] LABS: Adenovirus Not Detected (NOT DETECT); Bordetella pertussis Not Detected (NOT DETECT); Chlamydophila pneumoniae Not Detected (NOT DETECT); Coronavirus 229E Not Detected (NOT DETECT); Coronavirus HKU1 Not Detected (NOT DETECT); Coronavirus NL63 Not Detected (NOT DETECT); Coronavirus OC43 Not Detected (NOT DETECT); Human Metapneumovirus Not Detected (NOT DETECT); Human Rhinovirus/Enterovirus Detected (NOT DETECT); Influenza A/2009-H1 Not Detected (NOT DETECT); Influenza A/H1 Not Detected (NOT DETECT); Influenza A/H3 Not Detected (NOT DETECT); Influenza B Not Detected (NOT DETECT); Mycoplasma pneumoniae Not Detected (NOT DETECT); Parainfluenza Virus 1 Not Detected (NOT DETECT); Parainfluenza Virus 2 Not Detected (NOT DETECT); Parainfluenza Virus 3 Not Detected (NOT DETECT); Parainfluenza Virus 4 Not Detected (NOT DETECT); Respiratory Syncytial Virus Not Detected (NOT DETECT); SARS-Cov-2 (COVID-19), BioFire Not Detected (NOT DETECT)
[2023-11-21] MEDS ORDERED: ALBU8HFA2 INH (01:53)
[2023-11-21] MEDS ORDERED: ACET325 PO (01:54)
[2023-11-21] MEDS ORDERED: NYSTATIN500000 UNI PO (01:56)
[2023-11-21] MEDS ORDERED: OXYC5 PO (01:56)
[2023-11-21] MEDS ORDERED: CATAPRES0.1 MG PO (01:58)
[2023-11-21] MEDS ORDERED: NEURONTIN300 MG PO (01:59)
[2023-11-21] MEDS ORDERED: ONDA4ODT MM (02:00)
[2023-11-21] MEDS ORDERED: CYCL10 PO (02:00)
[2023-11-21] MEDS ORDERED: COLACE100 MG PO (02:01)
[2023-11-21] MEDS ORDERED: ZILEUTON PO (02:03)
[2023-11-21] MEDS ORDERED: PROP50 PO (02:04)
[2023-11-21] MEDS ORDERED: ZYRTEC10 M1 PO (02:06)
[2023-11-21] MEDS ORDERED: PSEUDOEPHEDRINE30 M1 PO (02:07)
[2023-11-21] MEDS ORDERED: OZEMPIC0.25 MG/02 (02:08)
[2023-11-21] MEDS ORDERED: Albuterol 2.5 MG/3 ML VIAL INH SCH (02:40)
[2023-11-21] MEDS ORDERED: Albuterol 2.5 MG/3 ML VIAL INH PRN (02:40)
[2023-11-21] MEDS ORDERED: Mometasone/Formoterol MDI 200/5 mcg 13 GM INH SCH (02:40)
[2023-11-21] MEDS ORDERED: HYDROmorphone HCl/Pf 1MG SYR IV ONE (02:45)
[2023-11-21] MEDS ORDERED: Tiotropium Bromide 2.5 MCG/ACT MIST INHAL (10 ACT/4 GM) INH SCH (02:45)
[2023-11-21 04:27] LABS: BASOPHILS ABSOLUTE AUTO 0.03 K/mm3 (0.00-0.23); BASOPHILS PERCENT AUTO 0 % (0-2); EOSINOPHILS PERCENT AUTO 0 % (0-6); Hematocrit 41.4 % (33.0-51.0); Hemoglobin 13.3 g/dL (11.5-16.0); IMMATURE GRAN ABSOLUTE AUTO 0.33 K/mm3 (0.00-0.10); IMMATURE GRAN PERCENT AUTO 2 % (0-1); LYMPHOCYTES ABSOLUTE AUTO 0.26 K/mm3 (0.84-5.20); LYMPHOCYTES PERCENT AUTO 2 % (21-46); MONOCYTES ABSOLUTE AUTO 0.74 K/mm3 (0.16-1.47); MONOCYTES PERCENT AUTO 4 % (4-13); Mean Corpuscular HGB Conc 32.1 g/dL (31.5-36.5); Mean Corpuscular Volume 90 fL (80-100); NEUTROPHILS PERCENT AUTO 92 % (41-73); Platelet Count 180 K/mm3 (150-400); RDW Coefficient Variation 14.5 % (11.7-14.2); RDW Standard Deviation 47.8 fL (35.1-46.3); Red Blood Cell Count 4.58 M/mm3 (3.80-5.20); White Blood Cell Count 17.36 K/mm3 (4.00-11.30)
[2023-11-21 04:45] LABS: Bun/Creatinine Ratio 18.7 (12.0-20.0); Calcium, Blood 8.1 mg/dL (8.5-10.1); Creatinine, Blood 0.7 mg/dL (0.40-1.00)
[2023-11-21] MEDS ORDERED: CloNIDine 0.1 MG Tab PO PRN (07:55)
[2023-11-21] MEDS ORDERED: OxyCODONE HCL 5 MG TAB PO PRN (07:55)
[2023-11-21] MEDS ORDERED: Docusate Sodium 100 MG Cap PO PRN (07:55)
[2023-11-21] MEDS ORDERED: Cyclobenzaprine HCl 10 MG Tab PO PRN (08:00)
[2023-11-21] MEDS ORDERED: Acetaminophen 325 MG TABLET PO PRN (08:00)
[2023-11-21] MEDS ORDERED: Insulin Regular 100 UNIT/ML 10ML Vial SC SCH ×2 (08:00→13:00)
[2023-11-21] MEDS ORDERED: ZILEUTON 600 MG PO SCH (09:00)
[2023-11-21] MEDS ORDERED: Lactobacil 2-S.Thermo-Bifido 1 1 Cap PO SCH (09:00)
[2023-11-21] MEDS ORDERED: Doxycycline Hyclate 100 MG in Dextrose 5% 250 ML IV SCH (09:31)
[2023-11-21] MEDS ORDERED: Insulin Glargine-Yfgn 100 Unit/mL 3 ML SYR SC SCH ×2 (10:00→21:00)
[2023-11-21] MEDS ORDERED: Lactated Ringer's 1,000 ML IV SCH (10:10)
[2023-11-21] MEDS ORDERED: Lactated Ringer's 1,000 ML IV ONE (10:18)
[2023-11-21] MEDS ORDERED: Insulin NPH 100 Unit / ML 10ML Vial SC SCH (10:18)
[2023-11-21] MEDS ORDERED: PredniSONE 20 MG Tab PO SCH (11:00)
[2023-11-21] MEDS ORDERED: Insulin Human Lispro 100 Units/ML 3ML Syringe SC SCH (11:30)
[2023-11-21] MEDS ORDERED: DOXY100 PO (14:49)
[2023-11-21] MEDS ORDERED: CEFP200 PO (14:49)
[2023-11-21] MEDS ORDERED: CefTRIAXone Sodium 1,000 MG in NS 100 ML IV SCH (15:00)
[2023-11-21 15:23] VITALS: BP 137/93
[2023-11-21] MEDS ORDERED: Famotidine 20 MG Tab PO SCH (16:00)
[2023-11-21] MEDS ORDERED: Gabapentin 300 MG Cap PO SCH (18:00)
[2023-11-22] MEDS ORDERED: Loratadine 10 MG Tab PO SCH (09:00)
== END 2023-11-21 15:24 | disposition home or self-care (01) ==
LOC: ER 21:05 → PCU 21:06 → ERHOLD 21:06 → ER 21:06 → ERHOLD 21:06
PROVIDERS: Family Medicine; Student in an Organized Health Care Education/Training Program; ADMIT Internal Medicine
DX: J96.01 Acute respiratory failure with hypoxia (principal); J18.8 Other pneumonia, unspecified organism; J45.901 Unspecified asthma with (acute) exacerbation; E11.9 Type 2 diabetes mellitus without complications; I10 Essential (primary) hypertension; D72.829 Elevated white blood cell count, unspecified; R65.20 Severe sepsis without septic shock; Z88.5 Allergy status to narcotic agent; Z88.8 Allergy status to other drugs, medicaments and biological substances; Z79.84 Long term (current) use of oral hypoglycemic drugs; Z79.899 Other long term (current) drug therapy
CPT/HCPCS: 0202U; 36415; 71045; 80048; 80053; 82803; 82947; 83605; 83735; 84145; 85025; 93005; 93010; 94640; 94644; 94645; 94664; 96365; 96366; 96367; 96372-59; 96375; 96376; 99285-25; A9270; G0378; J0171; J0696; J1100; J1170; J1200; J1815; J3475; J7030; J7060; J7120; J7512

== ENCOUNTER 2023-12-03 12:44 | Inpatient (IN) | payer OTHER ==
[~2023-12-03] VITALS: Ht 167.6 cm; Wt 95.7 kg
[~2023-12-03 12:44] MED LIST changes: +ALBU8HFA2 INH; +CATAPRES0.1 MG PO; +CEFP200 PO; +COLACE100 MG PO; +DOXY100 PO; +NEURONTIN300 MG PO; +NYSTATIN500000 UNI PO; +OXYC5 PO; +OZEMPIC0.25 MG/02; +ZYRTEC10 M1 PO
[2023-12-03] MEDS ORDERED: DiphenhydrAMINE HCl 50 MG/ML 1ML Vial ONE (12:49)
[2023-12-03] MEDS ORDERED: Magnesium Sulf 2 GM/Water 50ML 50 ML IV ONE (12:50)
[2023-12-03] MEDS ORDERED: Albuterol 2.5 MG/3 ML VIAL INH SCH ×2 (12:50→16:00)
[2023-12-03] MEDS ORDERED: Dexamethasone Sod Phos 10 MG/ML 1ML VIAL IV ONE (12:50)
[2023-12-03 12:54] LABS: Base Excess Venous -7.9 mmol/L; Bicarbonate Venous 19.4 mmol/L (24.0-30.0); PCO2 Venous 26.6 mmHg (38-42); pH Blood Venous 7.41 (7.34-7.37)
[2023-12-03] MEDS ORDERED: DiphenhydrAMINE HCl 50 MG/ML 1ML Vial IV ONE (12:55)
[2023-12-03] MEDS ORDERED: NOVOLIN N100 UNIT/2 (13:25)
[2023-12-03] MEDS ORDERED: FIASP 100100 UNIT/3 (13:26)
[2023-12-03] MEDS ORDERED: DiphenhydrAMINE HCl 50 MG/ML 1ML Vial IV PRN (16:45)
[2023-12-03] MEDS ORDERED: Ipratropium/Albuterol SulF 2.5-0.5MG/3 ML Amp INH SCH (16:45)
[2023-12-03] MEDS ORDERED: OxyCODONE HCL 5 MG TAB PO PRN (16:50)
[2023-12-03] MEDS ORDERED: Cyclobenzaprine HCl 10 MG Tab PO PRN (16:50)
[2023-12-03] MEDS ORDERED: Docusate Sodium 100 MG Cap PO PRN (16:50)
[2023-12-03] MEDS ORDERED: Acetaminophen/Codeine 300-30 mg PO PRN (16:50)
[2023-12-03] MEDS ORDERED: Magnesium Hydroxide Conc 10 ML UDC PO PRN (16:55)
[2023-12-03] MEDS ORDERED: Pseudoephedrine HCl 30 MG Tab PO PRN (16:55)
[2023-12-03] MEDS ORDERED: CloNIDine 0.1 MG Tab PO PRN (16:55)
[2023-12-03] MEDS ORDERED: Prochlorperazine Edisylate 10 mg Vial IV PRN (16:55)
[2023-12-03] MEDS ORDERED: Gabapentin 300 MG Cap PO SCH (18:00)
[2023-12-03] MEDS ORDERED: Albuterol 2.5 MG/3 ML VIAL INH PRN (18:15)
[2023-12-03 18:18] VITALS: BP 156/95
--- NOTE | 2023-12-03 18:54 | NUR ---
ADMISSION NOTE: PATIENT ARRIVES TO ROOM AT 1811 VIA WHEELCHAIR FROM ER c DX'S OF ASHTHMA EXACERBATION. PATIENT TRANSFERRED TO BED INDEPENDENTLY, VERY SOB. PATIENT ON 2L O2 VIA NC, LUNGS DIM/TIGHT T/O TO AUSCULTATION. PATIENT ORIENTATED TO ROOM AND CALL SYSTEM. ADMISSION AND MEDRIC COMPLETED. PATIENT HAS PIV TO RAC AND L WRIST. SL. PATIENT DANGLING ON THE EOB, RT ADMINISTERED BREATHING TX. BEDSIDE REPORT GIVEN TO JESSICA STORY RN. PATIENT FAMILY AT BEDSIDE VISITING. CALL LIGHT IN REACH.
[2023-12-03 20:18] VITALS: BP 173/84
[2023-12-03] MEDS ORDERED: ZILEUTON 600 MG PO SCH (21:00)
[2023-12-03] MEDS ORDERED: Insulin Regular 100 UNIT/ML 10ML Vial SC SCH (21:00)
[2023-12-03] MEDS ORDERED: Insulin NPH 100 Unit / ML 10ML Vial SC SCH (21:00)
[2023-12-03] MEDS ORDERED: Dexamethasone Sod Phos 10 MG/ML 1ML VIAL IV SCH (21:00)
[2023-12-04 00:56] VITALS: BP 183/81
[2023-12-04 00:58] LABS: Adenovirus Not Detected (NOT DETECT); Bordetella pertussis Not Detected (NOT DETECT); Chlamydophila pneumoniae Not Detected (NOT DETECT); Coronavirus 229E Not Detected (NOT DETECT); Coronavirus HKU1 Not Detected (NOT DETECT); Coronavirus NL63 Not Detected (NOT DETECT); Coronavirus OC43 Not Detected (NOT DETECT); Human Metapneumovirus Not Detected (NOT DETECT); Human Rhinovirus/Enterovirus Not Detected (NOT DETECT); Influenza A/2009-H1 Not Detected (NOT DETECT); Influenza A/H1 Not Detected (NOT DETECT); Influenza A/H3 Not Detected (NOT DETECT); Influenza B Not Detected (NOT DETECT); Mycoplasma pneumoniae Not Detected (NOT DETECT); Parainfluenza Virus 1 Not Detected (NOT DETECT); Parainfluenza Virus 2 Not Detected (NOT DETECT); Parainfluenza Virus 3 Not Detected (NOT DETECT); Parainfluenza Virus 4 Not Detected (NOT DETECT); Respiratory Syncytial Virus Not Detected (NOT DETECT); SARS-Cov-2 (COVID-19), BioFire Not Detected (NOT DETECT)
[2023-12-04] MEDS ORDERED: HydrALAZINE HCl 20 MG / ML 1ML Vial IV PRN (01:05)
[2023-12-04 01:42] VITALS: BP 145/98
[2023-12-04 03:40] VITALS: BP 135/89
--- NOTE | 2023-12-04 05:51 | NUR ---
SHIFT SUMMARY NOC PT A/O X 4. PLEASANT AND COOPERATIVE WITH CARE. BP/HR BOTH ELEVATED. HS CBG 205 AND NO R INSULIN CNI, BUT 20 UNITS SCHEDULED NPH GIVEN WITH SNACK. PT ON O2 3L/NC AND GETS SEVERE DSYPNEA WHEN ASSISTED TO BSC. PT CBG RECHECKED @ MIDNIGHT AND WAS 182. PT REPORTS HAVING CONSITENTLY LOW CBG IN AM USUALLY AROUND 50. WILL CONTINUE TO MONITOR FOR S/S OF HYPOGLYCEMIA AND RECHECK CBG @ 0600. PT TOOK BEDTIME DOSE OF BENADRYL IV BEFORE RECEIVING IV DECADRON, WITH NO ALLERGIC REACTIONS TO REPORT. ON TELE SINUS TACH IN 110'S. PT HAS C/O OF CP DUE TO COUGHING AND INCREASED HR, BUT IS BASELINE PER PT. AROUND 0045 PT WOKE UP GASPING FOR AIR, WHICH PT REPORTS HAPPENS FREQUENTLY AT HOME, RT CALLED AND BREATHING TX GIVEN, ORDER FOR CPAP OBTAINED AND CONTINOUS BIOX. PT WAS SEVERLY DYSPNEIC, BUT SPO2 >94% THE ENTIRE TIME. VS SHOWED ELEVATED BP/HR 10 MG IV HYDRALAZINE GIVEN. PT IS CURRENTLY RESTING WITH BED IN LOWEST POSITION, AND CALL LIGHT WITHIN REACH.
[2023-12-04 06:17] LABS: BASOPHILS ABSOLUTE AUTO 0.04 K/mm3 (0.00-0.23); BASOPHILS PERCENT AUTO 0 % (0-2); EOSINOPHILS PERCENT AUTO 0 % (0-6); Hematocrit 43.9 % (33.0-51.0); Hemoglobin 14.2 g/dL (11.5-16.0); IMMATURE GRAN PERCENT AUTO 4 % (0-1); LYMPHOCYTES PERCENT AUTO 3 % (21-46); MONOCYTES PERCENT AUTO 4 % (4-13); Mean Corpuscular HGB 29.3 pg (26.0-34.0); Mean Corpuscular HGB Conc 32.3 g/dL (31.5-36.5); Mean Corpuscular Volume 91 fL (80-100); Mean Platelet Volume 9.9 fL (9.1-12.4); NEUTROPHILS ABSOLUTE AUTO 16.25 K/mm3 (1.96-9.15); NEUTROPHILS PERCENT AUTO 88 % (41-73); Platelet Count 236 K/mm3 (150-400); RDW Coefficient Variation 15.2 % (11.7-14.2); RDW Standard Deviation 50.6 fL (35.1-46.3); Red Blood Cell Count 4.85 M/mm3 (3.80-5.20); White Blood Cell Count 18.49 K/mm3 (4.00-11.30)
[2023-12-04 07:06] LABS: Thyroid Stimulating Hormone 0.039 uIU/mL (0.360-4.800)
[2023-12-04 07:07] LABS: Albumin, Blood 3.7 g/dL (3.4-5.0); Albumin/Globulin Ratio 1.3 (0.8-1.8); Bilirubin, Total 0.6 mg/dL (0.1-1.0); Bun/Creatinine Ratio 24.3 (12.0-20.0); Calcium, Blood 8.4 mg/dL (8.5-10.1); Creatinine, Blood 0.58 mg/dL (0.40-1.00); Globulin, Blood 2.9 g/dL (2.2-4.0); Potassium, Blood 4.4 mmol/L (3.5-5.5); Total Protein, Blood 6.6 g/dL (6.4-8.2)
[2023-12-04 07:08] VITALS: BP 156/98
[2023-12-04] MEDS ORDERED: MetFORMIN HCl 500 mg PO SCH (08:00)
[2023-12-04] MEDS ORDERED: Enoxaparin 40 MG/0.4 ML SYR SC SCH (09:00)
[2023-12-04 15:10] VITALS: BP 151/106
[2023-12-04] MEDS ORDERED: Famotidine 20 MG Tab PO SCH (16:00)
[2023-12-04] MEDS ORDERED: Insulin Human Lispro 100 Units/ML 3ML Syringe SC SCH ×6 (16:30→21:00)
--- NOTE | 2023-12-04 17:46 | NUR ---
SHIFT SUMMARY PT COMPLIANT W/ CPAP T/O SHIFT W/ NO EVENTS. TELE NOTIFIED THIS NURSE X2 THAT PT WAS SUSTAINING HR IN THE 140'S. PT WAS ASYMPTOMATIC. NO OTHER ACUTE CHANGES THIS SHIFT. CALL LIGHT WITHIN REACH AND PT ABLE TO MAKE NEEDS KNOWN.
[2023-12-04] MEDS ORDERED: Glucose Oral Gel 15 GM TUBE PO PRN (19:05)
[2023-12-04 19:39] VITALS: BP 144/99
[2023-12-05 02:07] VITALS: BP 146/91
--- NOTE | 2023-12-05 04:50 | NUR ---
SHIFT SUMMARY: PATIENT HAS MAINTAINED 02 SATS ABOVE 95% THROUGH THE SHIFT ON CPAP WITH 2LNC BLEED IN AND 4LNC. PATIENT INDEPENDANTLY SWITCHES, USING CPAP FOR NAPS AND HS AND NC WHILE AWAKE. VSS. PATIENT CONTINUES TO HAVE BACK PAIN AND A HEADACHE THIS EVENING. PRN TYLENOL #3 WAS GIVEN X2 WITH GOOD EFFECT.
[2023-12-05 07:43] VITALS: BP 171/94
[2023-12-05] MEDS ORDERED: Insulin NPH 100 Unit / ML 10ML Vial SC SCH (09:00)
[2023-12-05] MEDS ORDERED: DiphenhydrAMINE HCl 50 MG/ML 1ML Vial IV PRN (11:35)
--- NOTE | 2023-12-05 14:59 | NUR ---
Upon receiving a referral for spiritual care, I visited the patient. Patient is sleeping when I enter the room and a family member is bedside. She tells me that the patient is exhausted. The patietn then lifts her head and acknowledges me and states that she is having a rough time and is trying to sleep. I let her return to resting and will continue to remain available to patient and family.
[2023-12-05 15:28] VITALS: BP 157/83
[2023-12-05] MEDS ORDERED: Dexamethasone Sod Phos 10 MG/ML 1ML VIAL IV SCH (16:00)
--- NOTE | 2023-12-05 17:29 | NUR ---
SHIFT SUMMARY: PT A/O X4. PLEASANT AND COOPERATIVE WITH CARE. PT ON CPAP THIS AM AND BIPAP PLACED THIS AFTERNOON. PT BEGAN DAY ON 2L NC. PER DR. BLAKELY, WEAN 02 TOLERATED. WEANED 02 TO 1L BUT RT TITRATED BACK UP TO 3L. TELE D/C THIS SHIFT. CONT BIOX IN PLACE. OBSERVED PT TACHYCARDIC AT REST AND WITH EXERTION. VERIFIED REMOVAL OF TELE. MD CALLED BACK STATING TO D/C ORDERED. DECADRON GIVEN ORDERED WITH BENEDRYL GIVEN 15 MINUTES BEFORE FOR MILD ALLERGY. GIVEN PAIN MEDICATION TWICE FOR HEADACHE. CALL LIGHT IN REACH. BED IN LOWEST POSITION.
[2023-12-05 19:59] VITALS: BP 146/92
[2023-12-06 02:08] VITALS: BP 138/79
--- NOTE | 2023-12-06 06:37 | NUR ---
SHIFT SUMMARY: PATIENT SLEPT WELL AFTER DILAUDID WAS GIVEN FOR ABD. PAIN. ABD. DRAIN HAS PUT OUT A TOTAL OF 140MLS OF YELLOWISH DRAINAGE. ABD. DRSG IS CD&I. PATIENT IS VOIDING IN THE URINAL WITHOUT DIFFICULTY. MOTHER REMAINS AT BEDSIDE ASSISTING PATIENT WITH ELIMINATION AND ADLS.
--- NOTE | 2023-12-06 06:43 | NUR ---
SHIFT SUMMARY: PATIENT HAS MAINTAINED 02 SATS ABOVE 94% USING 3L NC WHILE AWAKE AND BIPAP WITH A 3L BLEED IN FOR SLEEP. VOIDING LARGE AMOUNTS OF URINE THIS SHIFT AND HAD A BM WITH OWEN BLOOD OBSERVED. PATIENT DOES HAVE A HISTORY OF HEMORRIODS.
[2023-12-06 07:06] LABS: Hematocrit 42.7 % (33.0-51.0); Hemoglobin 14.1 g/dL (11.5-16.0); Mean Corpuscular HGB 29.5 pg (26.0-34.0); Mean Corpuscular Volume 89 fL (80-100); Mean Platelet Volume 9.4 fL (9.1-12.4); Platelet Count 195 K/mm3 (150-400); RDW Coefficient Variation 14.6 % (11.7-14.2); Red Blood Cell Count 4.78 M/mm3 (3.80-5.20); White Blood Cell Count 13.75 K/mm3 (4.00-11.30)
[2023-12-06 07:22] LABS: Bun/Creatinine Ratio 32.2 (12.0-20.0); Calcium, Blood 8.8 mg/dL (8.5-10.1); Creatinine, Blood 0.65 mg/dL (0.40-1.00)
[2023-12-06 07:31] LABS: BAND PERCENT MAN 2 % (0-8); BASOPHILS PERCENT MAN 0 % (0-2); EOSINOPHILS PERCENT MAN 0 % (0-6); LYMPHOCYTES ABSOLUTE MAN 0.55 K/mm3 (0.84-5.20); LYMPHOCYTES PERCENT MAN 4 % (21-46); MONOCYTES ABSOLUTE MAN 0.96 K/mm3 (0.16-1.47); MONOCYTES PERCENT MAN 7 % (4-13); MYELOCYTE ABSOLUTE MAN 0.55 K/mm3 (0.00-0.00); MYELOCYTE PERCENT MAN 4 % (0-0); NEUTROPHILS ABSOLUTE MAN 11.68 K/mm3 (1.96-9.15); SEG NEUTROPHILS PERCENT MAN 83 % (41-73); TOTAL CELLS COUNTED 100
[2023-12-06 07:48] VITALS: BP 165/91
--- NOTE | 2023-12-06 12:40 | NUR ---
Attempted Palliative Care supportive visit. Pt has friend at bedside and pt doesn't feel comfortable talking with friend in the room. PC will attempt visit at another time.
[2023-12-06 14:52] VITALS: BP 159/105
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
--- NOTE | 2023-12-06 17:18 | NUR ---
NO ACUTE CHANGES AT THIS TIME.PT CONTINUES TO DO WELL WITH THE BIPAP AND IS OXYGENATING IN THE 90s. PT IS USING BEDSIDE COMMODE SHE DOES GET SOB, BUT RECOVERS AFTER SHE GETS BACK TO BED. PT HAS BEEN VERY EMOTIONAL TODAY AND PALLLIATIVE CARE CAME BY AND SEEN HER. PT HAS HAD [place] ASSISTANCE TODAY WITH LEGAL PAPERWORK. PT WAS TREATED PER EMAR FOR BACK PAIN. NO DISTRESS NOTED AND CALL LIGHT WITHIN REACH.
[2023-12-06 20:06] VITALS: BP 162/100
[2023-12-06 23:36] VITALS: BP 157/99
[2023-12-07] MEDS ORDERED: DiphenhydrAMINE HCl 50 MG/ML 1ML Vial IV ONE (01:45)
[2023-12-07 02:51] VITALS: BP 136/78
--- NOTE | 2023-12-07 05:19 | NUR ---
SHIFT SUMMARY: PATIENT SHOWERED LAST NIGHT, RESPIRATORY AGREE'S TO GIVE 3L NC WHILE IN THE SHOWER. PATIENT DID DESAT TO 88% ON 3L MC. BUT RECOVERED QUICKLY WHEN BACK IN BED. BIPAP WITH A 3L BLEED IN IS ON DURING SLEEP. PATIENT IS REPORTING GENERALIZED PAIN 8/10. TYLENOL#3 AND FLEXERILE WERE GIVEN WITH GOOD EFFECT.
[2023-12-07 05:47] LABS: BASOPHILS ABSOLUTE AUTO 0.05 K/mm3 (0.00-0.23); BASOPHILS PERCENT AUTO 1 % (0-2); EOSINOPHILS PERCENT AUTO 0 % (0-6); Hematocrit 39.9 % (33.0-51.0); IMMATURE GRAN PERCENT AUTO 8 % (0-1); LYMPHOCYTES ABSOLUTE AUTO 0.38 K/mm3 (0.84-5.20); LYMPHOCYTES PERCENT AUTO 4 % (21-46); MONOCYTES ABSOLUTE AUTO 0.34 K/mm3 (0.16-1.47); MONOCYTES PERCENT AUTO 4 % (4-13); Mean Corpuscular HGB 29.1 pg (26.0-34.0); Mean Corpuscular HGB Conc 32.6 g/dL (31.5-36.5); Mean Corpuscular Volume 90 fL (80-100); Mean Platelet Volume 9.6 fL (9.1-12.4); NEUTROPHILS ABSOLUTE AUTO 7.74 K/mm3 (1.96-9.15); NEUTROPHILS PERCENT AUTO 84 % (41-73); Platelet Count 179 K/mm3 (150-400); RDW Coefficient Variation 14.6 % (11.7-14.2); RDW Standard Deviation 47.4 fL (35.1-46.3); Red Blood Cell Count 4.46 M/mm3 (3.80-5.20); White Blood Cell Count 9.21 K/mm3 (4.00-11.30)
[2023-12-07 06:17] LABS: BASOPHILS PERCENT MAN 0 % (0-2); EOSINOPHILS PERCENT MAN 0 % (0-6); LYMPHOCYTES ABSOLUTE MAN 0.73 K/mm3 (0.84-5.20); LYMPHOCYTES PERCENT MAN 8 % (21-46); MONOCYTES ABSOLUTE MAN 0.36 K/mm3 (0.16-1.47); MONOCYTES PERCENT MAN 4 % (4-13); SEG NEUTROPHILS PERCENT MAN 88 % (41-73); TOTAL CELLS COUNTED 100
[2023-12-07 06:23] LABS: Bun/Creatinine Ratio 32.8 (12.0-20.0); Calcium, Blood 8.4 mg/dL (8.5-10.1); Creatinine, Blood 0.64 mg/dL (0.40-1.00); Potassium, Blood 4.1 mmol/L (3.5-5.5)
--- NOTE | 2023-12-07 06:31 | NUR ---
SHIFT SUMMARY: PATIENT WAS EMOTIONAL AT START OF SHIFT AFTER FAMILY LEFT FOR THE NIGHT. REPORTING GENERALIZED PAIN 8/10, PAIN WAS RELEAVED WITH TYLENOL#3 AND FLEXERIL. PATIENT REQUESTED A SHOWER AND WAS ASSISTED. RESPIRATORY RECOMENDED USING NC 3L WHILE IN THE SHOWER. AFTER SHOWER AND PAIN MEDICATION PATIENT SLEPT WELL WITH BIPAP IN PLACE WITH A 3L BLEED IN.
[2023-12-07 07:43] VITALS: BP 161/98
[2023-12-07] MEDS ORDERED: OZEMPIC 2 MG/3 ML SC SCH (09:00)
[2023-12-07] MEDS ORDERED: PRED20 PO (14:52)
--- NOTE | 2023-12-07 15:07 | NUR ---
MET WITH PT, VOLODYMYR AND HER MOTHER YASMINE IN PT'S ROOM. VOLODYMYR SITTING UP IN BED. HEAVY, LOUD, EVEN BREATHING. SHE DENIES CURRENT SOB. VOLODYMYR EXPRESSED FRUSTRATION RE: NOT FEELING HEARD BY PROVIDER. SHE REPORTS A LADY CAME TO HER ROOM AND TOLD HER SHE WAS GOING HOME ON HER BASELINE STEROID DOSE AND WOULD BE TAPERED DOWN. "I DIDN'T KNOW I WAS GOING HOME UNTIL THEY CAME IN. I DON'T EVEN HAVE MY VENTILATOR OR KNOW HOW TO USE IT." THIS PC RN REASSURED VOLODYMYR SHE WOULD NOT GO HOME BEFORE SHE HAS HER NEW HOME TRILOGY MACHINE AND HER KNOWING HOW TO USE THE TRILOGY CORRECTLY. DR. DE PAZ CAME TO PT'S ROOM TO REVIEW CARE PLAN AND GOALS WITH PT AND HER MOTHER. MARY ARRIVED AT CONCLUSION OF VISIT WITH TRILOGY MACHINE. PT WILL NOT BE DISCHARGING HOME TODAY. PC WILL REMAIN AVAILABLE.
[2023-12-07 16:38] VITALS: BP 147/97
--- NOTE | 2023-12-07 17:51 | NUR ---
PT HAS BEEN AOX4 AND COOPERATIVE OF CARE.PT IS INDEPENDENT TO BEDSIDE COMMODE. DOING WELL ON ROOM AIR USING BIPAP NEEDED AND SLEEPING. PT IS ABLE TO MAKE NEEDS KNOWN. PT HAD FAMILY IN TODAY AND A MEETING WITH DR DE PAZ. DISCHARGE WAS PUT ON HOLD. TREATED FOR PAIN PER EMAR. NO DISTRESS NOTED CURRENTLY.
[2023-12-07 19:12] VITALS: BP 152/102
[2023-12-08 04:22] VITALS: BP 127/80
--- NOTE | 2023-12-08 06:01 | NUR ---
SHIFT SUMMARY PATEINT DID NOT RECEIVE DINNER. KITCHEN WAS CONTACTED BUT NEVER RECEIVED IT. WAS SUPPOSED TO BE DISCHARGED TODAY BUT DUE TO AN ISSUE WAS POSTPONED UNTILL POSSIBLY 12/08/23. PATIENT DID GET FOOD FROM OUTSIDE AT ABOOUT 2100. BLOOD SUGARS WERE AT 160. HELD SLIDING SCALE INSULIN. PATIENT UNDERWENT SLEEP STUDY. PATIENT HAD SLIGHT NOSE BLEED AT 0530. STOPPED VERY SHORTLY AND REMAINED THAT WAY. BED IN LOW POSITION, CALL LIGHT WITHIN REACH, RAILS TIMES 2.
[2023-12-08 07:23] VITALS: BP 154/101
[2023-12-08 14:30] VITALS: BP 151/96
--- NOTE | 2023-12-08 18:16 | NUR ---
SHIFT SUMMARY: PT A/O X4. PLEASANT AND COOPERATIVE WITH CARE. MOSTLY INDEPENDENT BUT OCCASIONAL SB ASSIST D/T ANXIETY AND WEAKNESS. PT HAS REMAINED >95% THROUGHOUT SHIFT ON RA. C/O PAIN IN BACK AND PAIN/TINGLING IN BILAT LOWER LEGS. GABAPENTIN AND PAIN MEDS PROVIDED PER EMAR. BREAKFAST AND LUNCH DOSES OF INSULIN HELD FOR CLINICAL JUDGEMENT. TRILOGY AT BEDSIDE. CALL LIGHT IN REACH. BED IN LOWEST POSITION. FAMILY IN ROOM.
[2023-12-08 20:28] VITALS: BP 149/88
[2023-12-09 02:38] VITALS: BP 124/78
--- NOTE | 2023-12-09 05:48 | NUR ---
SHIFT SUMMARY PATIENT VISITED WITH FAMILY. BLOOD SUGARS IN 170'S AT HS. ABLE TO AMBULATE TO USE BATHROOM. TOOK TYLENOL 3, FOR PAIN AT ABOUT 2355. PATIENT ATE DINNER AND HAD A SNACK BEFORE BED. PATEINT WEARING HOME TRILOGY MASK FOR SECOND NIGHT. BED IN LOW POSITION, CALL LIGHT WITH IN REACH, RAILS TIMES 2.
[2023-12-09 07:53] VITALS: BP 167/108
[2023-12-09] MEDS ORDERED: dexAMETHasone 4 MG TAB PO SCH (08:00)
[2023-12-09] MEDS ORDERED: PRED20 PO (13:24)
[2023-12-09] MEDS ORDERED: SERT25 PO (13:27)
[2023-12-09] MEDS ORDERED: DEXA2 PO (13:27)
[2023-12-09 14:35] VITALS: BP 140/85
--- NOTE | 2023-12-09 19:16 | NUR ---
report received veriufied, pt a/o very pleasent and is awaiting discharge this day as long as everything is ordered and available for home use. o2 eval done and pt doing very well off o2 and wont be needing it at home. once the green light for discharge given meds faxed and discharge explained. pt ambulatory in room and showering no s/s of distress, pt edwards of discharge information, how to use trilegy and meds in hand. pt wheeled down stairs
== END 2023-12-09 18:19 | disposition home or self-care (01) | DRG 189 ==
LOC: ER 12:44 → MEDS 17:25
PROVIDERS: Emergency Medicine; ADMIT Internal Medicine
PROC: 5A09357 Assistance with Respiratory Ventilation, Less than 24 Consecutive Hours, Continuous Positive Airway Pressure (ICD-10-PCS; principal; 2023-12-03)
DX: J96.21 Acute and chronic respiratory failure with hypoxia (principal); R65.11 Systemic inflammatory response syndrome (SIRS) of non-infectious origin with acute organ dysfunction; J45.51 Severe persistent asthma with (acute) exacerbation; I10 Essential (primary) hypertension; E11.9 Type 2 diabetes mellitus without complications; E05.00 Thyrotoxicosis with diffuse goiter without thyrotoxic crisis or storm; Z90.89 Acquired absence of other organs; Z88.1 Allergy status to other antibiotic agents; Z88.8 Allergy status to other drugs, medicaments and biological substances; Z88.6 Allergy status to analgesic agent; Z91.018 Allergy to other foods; Z79.899 Other long term (current) drug therapy; Z79.4 Long term (current) use of insulin; Z99.81 Dependence on supplemental oxygen; Z98.890 Other specified postprocedural states; Z79.891 Long term (current) use of opiate analgesic; Z79.84 Long term (current) use of oral hypoglycemic drugs; Z79.51 Long term (current) use of inhaled steroids
CPT/HCPCS: 0202U; 36415; 71045; 80048; 80053; 82803; 82947; 84443; 85025; 93005; 93010; 94640; 94644; 94660; 94664; 94760; 94761; 94762; 96365; 96375; 97110; 97116; 97161; 99285-25; A9270; J0360; J1100; J1200; J1650; J1815; J3475

== ENCOUNTER 2024-02-01 12:26 | Inpatient (IN) | payer OTHER ==
[~2024-02-01] VITALS: Ht 162.6 cm; Wt 102.1 kg
[~2024-02-01 12:26] MED LIST changes: +DEXA2 PO; +FIASP 100100 UNIT/3; +NOVOLIN N100 UNIT/2; +SERT25 PO
[2024-02-01 13:41] LABS: Hematocrit 40.9 % (33.0-51.0); Hemoglobin 13.5 g/dL (11.5-16.0); Mean Corpuscular HGB 30.1 pg (26.0-34.0); Mean Corpuscular Volume 91 fL (80-100); Mean Platelet Volume 9.4 fL (9.1-12.4); NRBC ABSOLUTE 0.04 K/mm3 (0.00-0.02); NRBC Auto 0.4 /100 WBC (0.0-0.2); Platelet Count 128 K/mm3 (150-400); RDW Coefficient Variation 15.3 % (11.7-14.2); RDW Standard Deviation 50.9 fL (35.1-46.3); Red Blood Cell Count 4.49 M/mm3 (3.80-5.20); White Blood Cell Count 9.51 K/mm3 (4.00-11.30)
[2024-02-01 14:07] LABS: Albumin, Blood 3.2 g/dL (3.4-5.0); Albumin/Globulin Ratio 1.1 (0.8-1.8); Bilirubin, Total 0.4 mg/dL (0.1-1.0); Bun/Creatinine Ratio 48.9 (12.0-20.0); Calcium, Blood 8.8 mg/dL (8.5-10.1); Creatinine, Blood 0.55 mg/dL (0.40-1.00); Potassium, Blood 4.9 mmol/L (3.5-5.5); Total Protein, Blood 6.2 g/dL (6.4-8.2)
[2024-02-01 14:18] LABS: Influenza A, PCR NEGATIVE (NEGATIVE); Influenza B, PCR NEGATIVE (NEGATIVE); Resp Syncytial Virus, PCR NEGATIVE (NEGATIVE); SARS-Cov-2 (COVID-19) PCR, MMC NEGATIVE (NEGATIVE)
[2024-02-01 14:33] LABS: BAND PERCENT MAN 18 % (0-8); BASOPHILS PERCENT MAN 0 % (0-2); EOSINOPHILS PERCENT MAN 0 % (0-6); LYMPHOCYTES ABSOLUTE MAN 0.66 K/mm3 (0.84-5.20); LYMPHOCYTES PERCENT MAN 7 % (21-46); METAMYELOCYTE ABSOLUTE MAN 0.47 K/mm3 (0.00-0.00); METAMYELOCYTE PERCENT MAN 5 % (0-0); MONOCYTES ABSOLUTE MAN 0.57 K/mm3 (0.16-1.47); MONOCYTES PERCENT MAN 6 % (4-13); MYELOCYTE ABSOLUTE MAN 0.57 K/mm3 (0.00-0.00); MYELOCYTE PERCENT MAN 6 % (0-0); NEUTROPHILS ABSOLUTE MAN 7.22 K/mm3 (1.96-9.15); SEG NEUTROPHILS PERCENT MAN 58 % (41-73); TOTAL CELLS COUNTED 100
[2024-02-01] MEDS ORDERED: Ipratropium/Albuterol SulF 2.5-0.5MG/3 ML Amp INH PRN (15:00)
[2024-02-01 15:45] LABS: Base Excess Venous -0.2 mmol/L; Bicarbonate Venous 24.8 mmol/L (24.0-30.0); PCO2 Venous 33.8 mmHg (38-42); pH Blood Venous 7.46 (7.34-7.37)
[2024-02-01] MEDS ORDERED: Ondansetron HCl 2 MG / ML 2ML Vial IV ONE (16:30)
[2024-02-01] MEDS ORDERED: Morphine Sulfate 4 MG/1 ML Injection IV ONE (16:30)
[2024-02-01] MEDS ORDERED: Albuterol 2.5 MG/3 ML VIAL INH SCH (16:35)
[2024-02-01] MEDS ORDERED: Ipratropium Bromide INH 0.02% 0.5 mg/2.5ML Vial INH SCH (16:35)
[2024-02-01] MEDS ORDERED: NS 1,000 ML IV SCH (16:45)
[2024-02-01] MEDS ORDERED: Albuterol 2.5 MG/3 ML VIAL INH PRN (20:45)
[2024-02-01] MEDS ORDERED: Acetaminophen 325 MG TABLET PO PRN (20:45)
[2024-02-01] MEDS ORDERED: Ondansetron HCl 2 MG / ML 2ML Vial IV PRN (20:50)
[2024-02-01] MEDS ORDERED: Morphine Sulfate 4 MG/1 ML Injection IV PRN (20:50)
[2024-02-01] MEDS ORDERED: Famotidine 20 MG Tab PO PRN (20:50)
[2024-02-01] MEDS ORDERED: Morphine Sulfate 4 MG/1 ML Injection ONE (20:55)
[2024-02-01] MEDS ORDERED: Ondansetron HCl 2 MG / ML 2ML Vial ONE (20:56)
[2024-02-01] MEDS ORDERED: Misc. Inhaler INH SCH (21:00)
[2024-02-01] MEDS ORDERED: Sodium, Potassium,Mag Sulfates 354 ML PO ONE (21:00)
[2024-02-01] MEDS ORDERED: Sodium, Potassium,Mag Sulfates 354 ML PO SCH (21:00)
[2024-02-01] MEDS ORDERED: ZILEUTON PO (22:44)
[2024-02-01] MEDS ORDERED: OXYC5 PO (22:46)
[2024-02-01] MEDS ORDERED: GUAI600T33 PO (22:48)
[2024-02-01] MEDS ORDERED: ATEN50 PO (22:50)
[2024-02-01] MEDS ORDERED: Flonase 0.05% N16 GM (22:50)
[2024-02-01] MEDS ORDERED: AMLO5 PO (22:51)
[2024-02-01] MEDS ORDERED: MOME220I INH (22:52)
[2024-02-01 22:58] LABS: Hematocrit 37.9 % (33.0-51.0); Hemoglobin 12.6 g/dL (11.5-16.0)
[2024-02-01] MEDS ORDERED: Ipratropium/Albuterol SulF 2.5-0.5MG/3 ML Amp INH SCH (23:25)
[2024-02-01] MEDS ORDERED: Misc. Inpatient Respiratory Med INH PRN (23:25)
[2024-02-01] MEDS ORDERED: Misc. Inpatient Respiratory Med INH SCH (23:25)
[2024-02-01] MEDS ORDERED: NOVOLIN N100 UNIT/2 SC (23:26)
[2024-02-01] MEDS ORDERED: Pantoprazole Sodium 40 MG Injection IV SCH (23:35)
[2024-02-01] MEDS ORDERED: FentaNYL Citrate 50 MCG/ML 2 ML Injection IV PRN (23:35)
[2024-02-01] MEDS ORDERED: Misc. Tablet PO SCH (23:40)
[2024-02-01 23:48] LABS: Anti-Xa UFH, PHA Monitoring <0.10 IU/mL; International Normalized Ratio 0.91; Prothrombin Time Results 9.8 Sec (9.7-11.5)
[2024-02-02] VITALS (10 sets, daily range): BP systolic 120–159; BP diastolic 77–104
[2024-02-02] MEDS ORDERED: Heparin Sodium,Porcine/0.5 NS 500 ML IV SCH ×2 (00:35→23:00)
[2024-02-02 04:53] LABS: Hematocrit 31.3 % (33.0-51.0); Hemoglobin 10.1 g/dL (11.5-16.0); Mean Corpuscular HGB 30.3 pg (26.0-34.0); Mean Corpuscular HGB Conc 32.3 g/dL (31.5-36.5); Mean Corpuscular Volume 94 fL (80-100); Mean Platelet Volume 10.1 fL (9.1-12.4); NRBC ABSOLUTE 0.02 K/mm3 (0.00-0.02); NRBC Auto 0.3 /100 WBC (0.0-0.2); Platelet Count 76 K/mm3 (150-400); RDW Coefficient Variation 15.9 % (11.7-14.2); RDW Standard Deviation 54.8 fL (35.1-46.3); Red Blood Cell Count 3.33 M/mm3 (3.80-5.20)
[2024-02-02 05:18] LABS: Magnesium, Blood 1.5 mg/dL (1.6-2.4)
[2024-02-02 05:36] LABS: Albumin, Blood 2.2 g/dL (3.4-5.0); Bilirubin, Total 0.3 mg/dL (0.1-1.0); Creatinine, Blood 0.25 mg/dL (0.40-1.00); Globulin, Blood 2.2 g/dL (2.2-4.0); Potassium, Blood 4.5 mmol/L (3.5-5.5); Total Protein, Blood 4.4 g/dL (6.4-8.2)
[2024-02-02 05:40] LABS: Calcium, Blood 6.1 mg/dL (8.5-10.1)
--- NOTE | 2024-02-02 05:55 | NUR ---
ER ADMIT TO PCU 2/SHIFT SUMMARY: PT ARRIVED TO THE UNIT APPROX 2230; TRANFERRED TO NEW BED VIA SLIDE SHEET. PT ADMITTED TO THE UNIT WITH A PE AND LOWER GI BLEED. PT ARRIVES ON NC @ 3 LPM, SPO2 94< AND DENIES SOB AT THIS TIME. LUNGS ARE CLEAR WITH INSPIRATORY WHEEZE NOTED, DIM BASES. PT SR ON MONITOR WITH HR 80'S, BP STABLE AND DENIES CHEST PAIN AT THIS TIME. ABD ROUND, TENDER TO TOUCH IN LUQ, AND SOFT. PT STARTED ON BOWEL PREP AFTER ARRIVAL TO THE UNIT IN PREP FOR A COLONOSCOPY TODAY AT NOON. PT REPORTS THAT SHE HAS BEEN HAVING LOOSE STOOLS FOR THE PAST MONTH WITH BLOOD NOTED IN STOOL. PT USING BATHROOM FOR ELIMINATION AND CAN AMBULATE WITH SBA FOR CORD MANAGEMENT. BLE EDEMATOUS 1+ AND BILAT HANDS EDEMATOUS 1-2+; PPP X 4. PG PLACED TO RICHARD THAT IS PATENT BUT VERY POSITIONAL TO DRAW BLOOD. HOME MED REC. COMPLETED AND HOME MEDS VERRIFIED WITH PHARMACY; MEDS IN LOCK BOX. MORNIG LABS CAME BACK WITH ANION GAP INCREASING AND NOW CO2 IS DROPPING, CBG STABLE IN THE 110-130 AT THIS TIME; [facility] NOTIFIED AND ORDERS RECIEVED. PT PAIN MANAGED WITH 50 MCG FENTANYL Q4P WITH GOOD EFFECT. BED LOWERED, CALL LIGHT IN REACH.
[2024-02-02] MEDS ORDERED: Magnesium Sulf 2 GM/Water 50ML 50 ML IV ONE (07:15)
[2024-02-02 08:19] LABS: Base Excess Venous 4.5 mmol/L; Bicarbonate Venous 26.9 mmol/L (24.0-30.0); PCO2 Venous 53.9 mmHg (38-42); pH Blood Venous 7.36 (7.34-7.37)
[2024-02-02] MEDS ORDERED: Dose Adjust by Pharmacy XX STA (08:41)
[2024-02-02] MEDS ORDERED: Loratadine 10 MG Tab PO SCH (09:00)
[2024-02-02] MEDS ORDERED: dexAMETHasone 4 MG TAB PO SCH (09:00)
[2024-02-02 09:42] LABS: Bun/Creatinine Ratio 35.6 (12.0-20.0); Calcium, Blood 8.3 mg/dL (8.5-10.1); Creatinine, Blood 0.45 mg/dL (0.40-1.00); Potassium, Blood 3.6 mmol/L (3.5-5.5)
[2024-02-02 10:07] LABS: Hematocrit 36.3 % (33.0-51.0); Hemoglobin 11.7 g/dL (11.5-16.0)
--- NOTE | 2024-02-02 10:44 | NUR ---
am note this rn assumed care at 0700. vital signs stable. tele sinus rhythm sinus tachcardia with exertion, 80-100s. spo2 >90% on 3.5l nc which is patient baseline. patient is alert and oriented x4. neuro is intact. patient is able to make needs known and uses call light appropriately. independent in the room and calls when needing assistances. lung sounds bilaterally expiratory wheezes throughout. denies shortness of breath. denies chest pain/pressure. abd is tender, distended and hyperactive. patient has off and on abd pain that is controlled with iv pain medication. see emar. no current pain at this time. skin is clean dry and intact. patient voids independently. see shift assessment for further detials. md morgan in to see patient this am. heparin drip stopped at 1000 per md orders for egd and colonscopy this afternoon. patient aware. md meier in to see patient this am. plan of care is up to date at this time.
[2024-02-02] MEDS ORDERED: Lactated Ringer's 1,000 ML IV SCH (12:25)
--- NOTE | 2024-02-02 13:16 | NUR ---
PT HAS POWERGLIDE TO LEFT UPPER ARM THAT FLUSHES WELL AND FLOWS TO GRAVITY.
--- NOTE | 2024-02-02 13:17 | NUR ---
PT BROUGHT FROM FLOOR TO DAY SURGERY FOR PROCEDURE. PT ON 3L SUPPLEMENTAL O2 VIA NC. PT ON TELEMETRY. History, Chart, Medications and Allergies reviewed before start of procedure. Lungs clear T/O to Auscultation. Patient confirms NPO status and agrees with scheduled surgery. Pre-Op teaching done. Pt verbalizes understanding. PT MOM AT BEDSIDE.
[2024-02-02] MEDS ORDERED: Lidocaine HCl 4% 5 ML SDA ONE ×2 (14:09→14:27)
[2024-02-02] MEDS ORDERED: propofoL 60 ML IV ONE (14:27)
[2024-02-02] MEDS ORDERED: Ipratropium/Albuterol SulF 2.5-0.5MG/3 ML Amp INH ONE (14:30)
[2024-02-02] MEDS ORDERED: propofoL 20 ML IV ONE (15:35)
--- NOTE | 2024-02-02 15:54 | NUR ---
02/02/24 1554 Surekha Ron 1505 INTO ENDO 1-History, Chart, Medications and Allergies reviewed before start of procedure.MONITOR INTACT WITH CONTINUOUS PULSE OXIMETRY, CONTINUOUS END TITAL CO2, AND INTERMITTENT BLOOD PRESSURE. 3-LEAD EKG REVIEWED WITH PHYSICIAN PRIOR TO START OF PROCEDURE.O2 VIA POM INTACT THROUGHOUT SEDATION/PROCEDURE.LIDOCAINE 4% WITH DUONEB GIVEN PRIOR TO PROCEDURE. Bite Block Placed. PROVIDING MAC-SEE ANESTHESIA RRECORD.
[2024-02-02] MEDS ORDERED: Fluconazole 100 MG Tab PO ONE (16:20)
[2024-02-02] MEDS ORDERED: Pantoprazole Sodium 40 MG Tab PO SCH (16:30)
[2024-02-02] MEDS ORDERED: Apixaban 5 MG Tab PO SCH ×2 (17:00)
--- NOTE | 2024-02-02 18:11 | NUR ---
SHIFT SUMMARY patient went for egd and colonoscopy this afternoon. see operative notes for detials. patient vitals stable. patient family in room this afternoon and evening. patient medicated for pain in abd when returing. encouraged warm beverages and drinks to help with the cramps as well. otherwise no acute changes this shift. resume heparin drip at 2200 tonight. see orders. plan remains up to date
[2024-02-02] MEDS ORDERED: Pseudoephedrine HCl 30 MG Tab PO PRN (18:55)
[2024-02-02] MEDS ORDERED: Acetaminophen/Codeine 300-30 mg PO PRN (18:55)
[2024-02-02] MEDS ORDERED: Cyclobenzaprine HCl 10 MG Tab PO PRN (18:55)
[2024-02-02] MEDS ORDERED: Ondansetron 4 MG SoluTab MM PRN (18:55)
[2024-02-02] MEDS ORDERED: CloNIDine 0.1 MG Tab PO PRN (19:00)
[2024-02-02] MEDS ORDERED: OxyCODONE HCL 5 MG TAB PO PRN (19:00)
[2024-02-02] MEDS ORDERED: Atenolol 50 MG Tab PO SCH ×2 (19:00→20:00)
[2024-02-02] MEDS ORDERED: Mometasone/Formoterol MDI 200/5 mcg 13 GM INH SCH (19:15)
[2024-02-02] MEDS ORDERED: Gabapentin 300 MG Cap PO SCH (19:51)
[2024-02-02] MEDS ORDERED: HyDROXyzine HCl 25 MG Tab PO ONE (19:55)
[2024-02-02] MEDS ORDERED: Insulin Human Lispro 100 Units/ML 3ML Syringe SC SCH ×2 (21:00)
[2024-02-02] MEDS ORDERED: Mometasone Furoate Inhaler 220 mcg 14 ACT INH SCH (21:00)
[2024-02-02] MEDS ORDERED: Misc. Inhaler INH SCH (21:00)
[2024-02-02] MEDS ORDERED: Misc. Tablet PO SCH (21:00)
[2024-02-02] MEDS ORDERED: GuaiFENesin 600 MG TabCR PO SCH (21:00)
--- NOTE | 2024-02-02 22:41 | NUR ---
UPDATE NOTIFIED RESIDENT OF CBG OF 466 AT TIME OF RESULT. WAS INSTRUCTED TO ADMINISTER 4 UNITS OF INSULIN PER EMAR AND RECHECK CBG. RECENT CBG NOW 343, RESIDENT NOTIFIED, NO NEW ORDERS.
[2024-02-03 03:49] VITALS: BP 136/97
[2024-02-03 05:11] LABS: Hematocrit 35.8 % (33.0-51.0); Hemoglobin 11.7 g/dL (11.5-16.0)
--- NOTE | 2024-02-03 05:12 | NUR ---
SHIFT SUMMARY PT A&O X4, ABLE TO MAKE NEEDS KNOWN. VSS, AFEBRILE, SPO2 >92% ON 3.5L NC. TELE SHOWS SR/ ST. PT WITH COMPLAINT OF ABDOMINAL PAIN AND NAUSEA THIS SHIFT, MEDICATED PER EMAR. HEPARIN GTT RESTARTED THIS SHIFT. NO ACUTE CHANGES. PT IS RESTING QUIETLY IN BED, BREATHING EVEN AND UNLABORED, CALL LIGHT IN REACH.
[2024-02-03 05:30] LABS: Bun/Creatinine Ratio 37.8 (12.0-20.0); Calcium, Blood 8.7 mg/dL (8.5-10.1); Creatinine, Blood 0.48 mg/dL (0.40-1.00); Magnesium, Blood 2.3 mg/dL (1.6-2.4); Potassium, Blood 4.5 mmol/L (3.5-5.5)
[2024-02-03] MEDS ORDERED: Pantoprazole Sodium 40 MG Tab PO SCH ×2 (06:00→09:00)
[2024-02-03 07:17] VITALS: BP 132/84
[2024-02-03] MEDS ORDERED: Apixaban 5 MG Tab PO SCH (08:00)
[2024-02-03] MEDS ORDERED: AmLODIPine Besylate 5 MG Tab PO SCH (09:00)
[2024-02-03] MEDS ORDERED: Fluticasone 0.05% Nasal Spray SCH (09:00)
[2024-02-03] MEDS ORDERED: Sertraline HCl 50 MG Tab PO SCH (09:00)
--- NOTE | 2024-02-03 10:26 | NUR ---
AM NOTE this rn assumed care at 0700. vital signs stable. spo2 >90% on 3.5l nc, which is patient baseline. tele sinus rhythm. patient is alert and oriented x4. neuro is intact. patient is able to make needs known and uses call light appropriately. denies chest pain/pressure or shortness of breath. patient reports pain in abd and medicated per emar. see shift assessment for further detials. md beltran in to see patient and discussed plan of care. plan for patient to be discharged this afternoon and patient agrees with this plan.
[2024-02-03] MEDS ORDERED: Fluconazole 100 MG Tab PO SCH (12:00)
[2024-02-03] MEDS ORDERED: OXAYDO5 M1 PO (13:05)
[2024-02-03] MEDS ORDERED: ELIQUIS5 M2 PO (13:07)
[2024-02-03] MEDS ORDERED: FLUC200 PO (13:08)
[2024-02-03] MEDS ORDERED: DOXY100 PO (13:09)
[2024-02-03] MEDS ORDERED: PANTOPRAZOLE SO20 M3 PO (13:11)
--- NOTE | 2024-02-03 13:58 | NUR ---
DISCHARGE this rn went over discharge education, medications and follow up appointment. patient verbalized undertsanding and left with discharge packet and all belongings. patient powerglide removed and tip in place. no acute changes from last note. patient left in no distress.
[2024-02-03] MEDS ORDERED: Gabapentin 300 MG Cap PO SCH (18:00)
[2024-02-03 21:29] LABS: HOMOCYSTEINE, TOTAL 9 umol/L (0-15)
[2024-02-04 05:48] LABS: CARDIOLIPIN ANTIBODY IGG <10 GPL (<=14); CARDIOLIPIN ANTIBODY IGM <10 MPL (<=12)
[2024-02-04 15:57] LABS: ANTITHROMBIN, ENZYM (ACTIVITY) 133 % (76-128)
[2024-02-04 16:17] LABS: ANTI-XA QUALITATIVE INTERP Not Performed (Not Present); ANTICOAG MEDICATION NEUTRALIZ Not Performed (Not Performed); DRVVT 1:1 MIX RATIO Not Performed (<=1.20); DRVVT CONFIRMATION RATIO Not Performed (<=1.20); DRVVT SCREEN RATIO 0.87 (<=1.20); HEXAGONAL PHOSPHOLIPID CONFIRM Not Performed s (<=7.9); NEUTRALIZED DRVVT SCREEN RATIO Not Performed (<=1.20); NEUTRALIZED PTT-LA RATIO Not Performed (<=1.20); PROTHROMBIN TIME (PT) 12.9 s (12.0-15.5); PTT-LA RATIO 0.74 (<=1.20); THROMBIN TIME (TT) Not Performed s (<=19.5)
[2024-02-04 17:39] LABS: B2GLYCOPROTEIN 1, IGG ANTIBODY <10 SGU (<=20); B2GLYCOPROTEIN 1, IGM ANTIBODY <10 SMU (<=20)
[2024-02-04 19:01] LABS: PROTEIN C FUNCTIONAL >250 % (83-168)
[2024-02-04 22:55] LABS: APC RESISTANCE 3.68 (>=2.00); FACTOR V LEIDEN BY PCR Not Done; FACV REF SPECIMEN Not Done
[2024-02-04 23:58] LABS: PROTEIN S AG FREE 135 % (55-123)
== END 2024-02-03 13:43 | disposition home health service (06) | DRG 380 ==
LOC: ER 12:26 → PCU 20:39
PROVIDERS: Nurse Practitioner Acute Care; Physician Assistant; Student in an Organized Health Care Education/Training Program; Surgery; ADMIT Student in an Organized Health Care Education/Training Program
PROC: 0DB78ZX Excision of Stomach, Pylorus, Via Natural or Artificial Opening Endoscopic, Diagnostic (ICD-10-PCS; 2024-02-02)
PROC: 0DBN8ZZ Excision of Sigmoid Colon, Via Natural or Artificial Opening Endoscopic (ICD-10-PCS; principal; 2024-02-02 13:30)
PROC: 0DB58ZX Excision of Esophagus, Via Natural or Artificial Opening Endoscopic, Diagnostic (ICD-10-PCS; 2024-02-02 13:30)
DX: K22.11 Ulcer of esophagus with bleeding (principal); I26.99 Other pulmonary embolism without acute cor pulmonale; J96.11 Chronic respiratory failure with hypoxia; I82.459 Acute embolism and thrombosis of unspecified peroneal vein; J44.9 Chronic obstructive pulmonary disease, unspecified; E11.9 Type 2 diabetes mellitus without complications; I10 Essential (primary) hypertension; K44.9 Diaphragmatic hernia without obstruction or gangrene; J45.50 Severe persistent asthma, uncomplicated; E05.00 Thyrotoxicosis with diffuse goiter without thyrotoxic crisis or storm; E66.9 Obesity, unspecified; K63.5 Polyp of colon; Z88.8 Allergy status to other drugs, medicaments and biological substances; Z88.1 Allergy status to other antibiotic agents; Z88.6 Allergy status to analgesic agent; Z79.4 Long term (current) use of insulin; Z79.899 Other long term (current) drug therapy; Z79.84 Long term (current) use of oral hypoglycemic drugs; Z98.890 Other specified postprocedural states; Z86.718 Personal history of other venous thrombosis and embolism
CPT/HCPCS: 0241U; 36415; 71046; 71260; 74174; 80048; 80053; 81025; 82803; 82947; 83735; 84484; 84703; 85014; 85018; 85025; 85027; 85520; 85610; 85730; 93005; 93010; 93306; 93970; 94640; 94644; 94664; 94762; 96361; 96374-59; 96375-59; 97162; 97530; 99285-25; A9270; C1751; J1644; J2001; J2270; J2405; J2470; J2704; J3010; J3475; J7030; J7120; Q9967

== ENCOUNTER → 2024-02-07 | Outpatient (CLI) | payer OTHER ==
[~2024-02-07] MED LIST changes: +ALEVAZOL56.7 G1 TOP; +AMLO5 PO; +ELIQUIS5 M2 PO; +FLUC200 PO; +GUAI600T33 PO; +METFORMIN HCL500 M3 PO; +MOME220I INH; +NOVOLIN N100 UNIT/2 SC; +OXAYDO5 M1 PO; +PANTOPRAZOLE SO20 M3 PO; +ZOLOFT50 MG PO; +[UNRECOGNIZED DRUG - CODE]
[2024-02-07 14:27] LABS: Hematocrit 37.4 % (33.0-51.0); Mean Corpuscular HGB 29.8 pg (26.0-34.0); Mean Corpuscular HGB Conc 32.1 g/dL (31.5-36.5); Mean Corpuscular Volume 93 fL (80-100); Mean Platelet Volume 9.7 fL (9.1-12.4); NRBC ABSOLUTE 0.03 K/mm3 (0.00-0.02); NRBC Auto 0.4 /100 WBC (0.0-0.2); Platelet Count 121 K/mm3 (150-400); RDW Coefficient Variation 15.9 % (11.7-14.2); RDW Standard Deviation 54.4 fL (35.1-46.3); Red Blood Cell Count 4.03 M/mm3 (3.80-5.20); White Blood Cell Count 7.78 K/mm3 (4.00-11.30)
[2024-02-07 15:01] LABS: BAND PERCENT MAN 6 % (0-8); BASOPHILS PERCENT MAN 0 % (0-2); EOSINOPHILS PERCENT MAN 0 % (0-6); LYMPHOCYTES ABSOLUTE MAN 0.31 K/mm3 (0.84-5.20); LYMPHOCYTES PERCENT MAN 4 % (21-46); MONOCYTES ABSOLUTE MAN 0.54 K/mm3 (0.16-1.47); MONOCYTES PERCENT MAN 7 % (4-13); MYELOCYTE ABSOLUTE MAN 0.31 K/mm3 (0.00-0.00); MYELOCYTE PERCENT MAN 4 % (0-0); NEUTROPHILS ABSOLUTE MAN 6.61 K/mm3 (1.96-9.15); SEG NEUTROPHILS PERCENT MAN 79 % (41-73); TOTAL CELLS COUNTED 100
== END ==
LOC: LAB SHORT 11:55 → LAB 11:55
PROVIDERS: Internal Medicine
DX: Z11.9 Encounter for screening for infectious and parasitic diseases, unspecified (principal); J45.50 Severe persistent asthma, uncomplicated
CPT/HCPCS: 85025

== ENCOUNTER 2024-02-12 21:27 | Inpatient (IN) | payer OTHER ==
[~2024-02-12] VITALS: Ht 160 cm; Wt 99.9 kg
[~2024-02-12 21:27] MED LIST changes: +AIRSUPRA 90-810.7 GM INH; -ALBU8HFA2 INH; -ALEVAZOL56.7 G1 TOP; +ALLERGY NASAL17 ML; +Diflucan100 MG PO; -FAMO20 PO; -FLUC200 PO; -METF500C PO; -METFORMIN HCL500 M3 PO; -MOME220I INH; -OZEMPIC0.25 MG/02; +OZEMPIC0.25 MG/02 SC; +PANT40 PO; -PANTOPRAZOLE SO20 M3 PO; -ZOLOFT50 MG PO; -[UNRECOGNIZED DRUG - CODE]
[2024-02-12 21:59] LABS: Hematocrit 35.7 % (33.0-51.0); Hemoglobin 12.2 g/dL (11.5-16.0); Mean Corpuscular HGB 30.8 pg (26.0-34.0); Mean Corpuscular HGB Conc 34.2 g/dL (31.5-36.5); Mean Corpuscular Volume 90 fL (80-100); Mean Platelet Volume 9.6 fL (9.1-12.4); NRBC ABSOLUTE 0.04 K/mm3 (0.00-0.02); NRBC Auto 0.4 /100 WBC (0.0-0.2); Platelet Count 139 K/mm3 (150-400); RDW Coefficient Variation 15.8 % (11.7-14.2); RDW Standard Deviation 51.8 fL (35.1-46.3); Red Blood Cell Count 3.96 M/mm3 (3.80-5.20); White Blood Cell Count 9.09 K/mm3 (4.00-11.30)
[2024-02-12 22:10] LABS: Albumin, Blood 3.2 g/dL (3.4-5.0); Albumin/Globulin Ratio 1.2 (0.8-1.8); Bilirubin, Total 0.4 mg/dL (0.1-1.0); Bun/Creatinine Ratio 52.2 (12.0-20.0); Calcium, Blood 8.8 mg/dL (8.5-10.1); Creatinine, Blood 0.36 mg/dL (0.40-1.00); Globulin, Blood 2.7 g/dL (2.2-4.0); Potassium, Blood 3.7 mmol/L (3.5-5.5); Total Protein, Blood 5.9 g/dL (6.4-8.2)
[2024-02-12 22:35] LABS: BAND PERCENT MAN 11 % (0-8); BASOPHILS PERCENT MAN 0 % (0-2); EOSINOPHILS PERCENT MAN 0 % (0-6); LYMPHOCYTES ABSOLUTE MAN 0.72 K/mm3 (0.84-5.20); LYMPHOCYTES PERCENT MAN 8 % (21-46); METAMYELOCYTE ABSOLUTE MAN 0.36 K/mm3 (0.00-0.00); METAMYELOCYTE PERCENT MAN 4 % (0-0); MONOCYTES ABSOLUTE MAN 0.63 K/mm3 (0.16-1.47); MONOCYTES PERCENT MAN 7 % (4-13); MYELOCYTE ABSOLUTE MAN 0.09 K/mm3 (0.00-0.00); MYELOCYTE PERCENT MAN 1 % (0-0); NEUTROPHILS ABSOLUTE MAN 7.27 K/mm3 (1.96-9.15); SEG NEUTROPHILS PERCENT MAN 69 % (41-73); TOTAL CELLS COUNTED 100
[2024-02-12 22:41] LABS: Influenza A, PCR NEGATIVE (NEGATIVE); Influenza B, PCR NEGATIVE (NEGATIVE); Resp Syncytial Virus, PCR NEGATIVE (NEGATIVE); SARS-Cov-2 (COVID-19) PCR, MMC NEGATIVE (NEGATIVE)
[2024-02-12] MEDS ORDERED: Ipratropium/Albuterol SulF 2.5-0.5MG/3 ML Amp INH ONE (22:55)
[2024-02-12] MEDS ORDERED: Albuterol 2.5 MG/3 ML VIAL INH SCH (23:05)
[2024-02-12] MEDS ORDERED: Ipratropium Bromide INH 0.02% 0.5 mg/2.5ML Vial INH SCH (23:05)
[2024-02-12] MEDS ORDERED: OxyCODONE HCL 5 MG TAB PO ONE (23:20)
[2024-02-13] MEDS ORDERED: Morphine Sulfate 4 MG/1 ML Injection IV ONE (02:00)
[2024-02-13] MEDS ORDERED: FLU VACC TS2024-25(6MOS UP)/PF 45 MCG/0.5 ML SYRINGE IM SCH (02:45)
[2024-02-13] MEDS ORDERED: Ipratropium/Albuterol SulF 2.5-0.5MG/3 ML Amp INH PRN (02:45)
[2024-02-13] MEDS ORDERED: Ondansetron HCl 2 MG / ML 2ML Vial IV PRN (02:45)
[2024-02-13] MEDS ORDERED: CODACE30 PO (04:28)
[2024-02-13] MEDS ORDERED: DEXA2 PO (04:30)
[2024-02-13] MEDS ORDERED: COLACE100 MG PO (04:34)
[2024-02-13] MEDS ORDERED: NEURONTIN300 MG PO (04:37)
[2024-02-13] MEDS ORDERED: PROP50 PO (04:41)
[2024-02-13] MEDS ORDERED: ZOLOFT50 MG PO (04:42)
[2024-02-13] MEDS ORDERED: METFORMIN HCL500 M3 PO (04:43)
[2024-02-13] MEDS ORDERED: [UNRECOGNIZED DRUG - CODE] PO (04:46)
[2024-02-13] MEDS ORDERED: ZYRTEC10 M2 PO (04:48)
[2024-02-13] MEDS ORDERED: ALEVAZOL56.7 G1 TOP (04:51)
[2024-02-13] MEDS ORDERED: Dexamethasone Sodium Phosphate 4 MG/ML 5ML VIAL IV SCH (05:00)
[2024-02-13] MEDS ORDERED: Acetaminophen/Codeine 300-30 mg PO PRN (06:25)
[2024-02-13] MEDS ORDERED: Albuterol HFA200 ACT/6.7 GM INH INH PRN (06:25)
[2024-02-13] MEDS ORDERED: OxyCODONE HCL 5 MG TAB PO PRN ×3 (06:25→16:30)
[2024-02-13] MEDS ORDERED: Docusate Sodium 100 MG Cap PO PRN (06:25)
[2024-02-13] MEDS ORDERED: Cyclobenzaprine HCl 10 MG Tab PO PRN (06:30)
[2024-02-13] MEDS ORDERED: Acetaminophen 325 MG TABLET PO PRN (06:30)
[2024-02-13 08:39] LABS: BASOPHILS ABSOLUTE AUTO 0.03 K/mm3 (0.00-0.23); BASOPHILS PERCENT AUTO 0 % (0-2); EOSINOPHILS PERCENT AUTO 0 % (0-6); Hematocrit 34.5 % (33.0-51.0); Hemoglobin 11.3 g/dL (11.5-16.0); IMMATURE GRAN ABSOLUTE AUTO 0.57 K/mm3 (0.00-0.10); IMMATURE GRAN PERCENT AUTO 8 % (0-1); LYMPHOCYTES ABSOLUTE AUTO 0.57 K/mm3 (0.84-5.20); LYMPHOCYTES PERCENT AUTO 8 % (21-46); MONOCYTES ABSOLUTE AUTO 0.41 K/mm3 (0.16-1.47); MONOCYTES PERCENT AUTO 6 % (4-13); Mean Corpuscular HGB Conc 32.8 g/dL (31.5-36.5); Mean Corpuscular Volume 92 fL (80-100); NEUTROPHILS ABSOLUTE AUTO 5.87 K/mm3 (1.96-9.15); NEUTROPHILS PERCENT AUTO 79 % (41-73); NRBC ABSOLUTE 0.04 K/mm3 (0.00-0.02); NRBC Auto 0.5 /100 WBC (0.0-0.2); Platelet Count 120 K/mm3 (150-400); RDW Standard Deviation 53.8 fL (35.1-46.3); Red Blood Cell Count 3.77 M/mm3 (3.80-5.20); White Blood Cell Count 7.45 K/mm3 (4.00-11.30)
[2024-02-13 08:41] LABS: Albumin, Blood 3.2 g/dL (3.4-5.0); Albumin/Globulin Ratio 1.3 (0.8-1.8); Bilirubin, Total 0.4 mg/dL (0.1-1.0); Bun/Creatinine Ratio 59.9 (12.0-20.0); Calcium, Blood 8.1 mg/dL (8.5-10.1); Creatinine, Blood 0.4 mg/dL (0.40-1.00); Globulin, Blood 2.4 g/dL (2.2-4.0); Potassium, Blood 3.9 mmol/L (3.5-5.5); Total Protein, Blood 5.6 g/dL (6.4-8.2)
[2024-02-13] MEDS ORDERED: Insulin NPH 100 Unit / ML 10ML Vial SC SCH (09:00)
[2024-02-13] MEDS ORDERED: Sertraline HCl 50 MG Tab PO SCH (09:00)
[2024-02-13] MEDS ORDERED: Nystatin 100,000 Unit/ML Susp 5 ML UDC MT SCH (09:00)
[2024-02-13] MEDS ORDERED: AmLODIPine Besylate 5 MG Tab PO SCH (09:00)
[2024-02-13] MEDS ORDERED: Fluconazole 100 MG Tab PO SCH (09:00)
[2024-02-13] MEDS ORDERED: Loratadine 10 MG Tab PO SCH (09:00)
[2024-02-13] MEDS ORDERED: Fluticasone 0.05% Nasal Spray SCH (09:00)
[2024-02-13] MEDS ORDERED: Clotrimazole 1% Cream 15 GM Tube TOP SCH (09:00)
[2024-02-13] MEDS ORDERED: Pantoprazole Sodium 40 MG Tab PO SCH (09:00)
[2024-02-13] MEDS ORDERED: Atenolol 50 MG Tab PO SCH (09:00)
[2024-02-13] MEDS ORDERED: Apixaban 5 MG Tab PO SCH (09:00)
[2024-02-13 09:37] LABS: BASOPHILS PERCENT MAN 0 % (0-2); EOSINOPHILS PERCENT MAN 0 % (0-6); LYMPHOCYTES ABSOLUTE MAN 0.22 K/mm3 (0.84-5.20); LYMPHOCYTES PERCENT MAN 3 % (21-46); METAMYELOCYTE ABSOLUTE MAN 0.14 K/mm3 (0.00-0.00); METAMYELOCYTE PERCENT MAN 2 % (0-0); MONOCYTES ABSOLUTE MAN 0.52 K/mm3 (0.16-1.47); MONOCYTES PERCENT MAN 7 % (4-13); MYELOCYTE ABSOLUTE MAN 0.07 K/mm3 (0.00-0.00); MYELOCYTE PERCENT MAN 1 % (0-0); NEUTROPHILS ABSOLUTE MAN 6.48 K/mm3 (1.96-9.15); SEG NEUTROPHILS PERCENT MAN 87 % (41-73); TOTAL CELLS COUNTED 100
[2024-02-13 09:44] VITALS: BP 148/88
--- NOTE | 2024-02-13 11:22 | NUR ---
Pt arrived to 301 via wheelchair, she is able to transfer to bed bed with sba, a/ox4, pleasant and cooperative with care, follows commands well, reports a bad h/a, that has been going on even though has been medicated for it, lungs are clear in upper figueredo, dim in bases, resp even and unlabored, no cough noted, currently on 3 liters 02 which is her baseline, hrr, tele in place running st per monitor, sees strip, no edema noted, ppp+2, cap refill <3 sec, vs stable, afebrile, piv to lfa 20g, site is clear and patent, abd flat soft nontender, voids without diff, skin has yeast rash to armpits and felipa area, on meds for that, otherwise no open areas, matroy, feels very weak, emile, oriented to room layout and call system, call light in reach.
[2024-02-13] MEDS ORDERED: Insulin Human Lispro 100 Units/ML 3ML Syringe SC SCH ×2 (12:00→13:00)
[2024-02-13] MEDS ORDERED: FentaNYL Citrate 50 MCG/ML 2 ML Injection IV ONE (13:00)
[2024-02-13] MEDS ORDERED: FentaNYL Citrate 50 MCG/ML 2 ML Injection ONE (13:02)
--- NOTE | 2024-02-13 13:04 | NUR ---
spiritual care visit conducted. I spoke with patient's spouse, Leilani in the hallway and he shares about his concerns with the patient's ability to have full recovery, he talks about the move that he has conducted from their house to an assisted living facility. He talks about the stress and how in the midst of it all he and patient are still finding their hope and evens in their Jain devyn. I provided therapeutic listening and a calming presence. Leilani responded well and showed signs of greater peace. I will cotninue to remain available to patient and family.
[2024-02-13 15:29] VITALS: BP 136/84
--- NOTE | 2024-02-13 16:18 | NUR ---
Upon receiving a referral for spiritual care, I visited the patient. The patient tells me about her medical problems, and the plan of care moving forward. She shares about her family unit complications, financial stressors, and the anger she feels due to not being able to have more to give to her children and family. She talks about the challenges of living with so many medical issues and that she is mentally, emotionally and physically exhausted. We explored what inspires, energizes and strengthens her and she can pull those resources back in toward herself. We discuss healing activities and her belief system which also nourish her spirit. I normalized her feelings and fears, reinforced helpful attitudes and practices and, provided therapeutic listening, encouragement, and a calming presence. Patient responded well to all interventions and showed signs of an elevated mood.
[2024-02-13] MEDS ORDERED: FentaNYL Citrate 50 MCG/ML 2 ML Injection IV PRN (16:30)
[2024-02-13] MEDS ORDERED: HYDROmorphone HCl/Pf 1MG SYR IV ONE (18:35)
--- NOTE | 2024-02-13 19:23 | NUR ---
pt having a lot of pain in her right flank, she has a cough that really makes it hurt worse, resp are in the high 30's to 40's, have notified Dr. Mcdonald about her pain, tried fentanyl with no relief, recieved order for dilaudid, this helped much more, but still does not look comfortable, she is attempting to eat dinner, Benson came to see her from the ED, he will move her to pcu and do vbg, encouraged her to wear her bipap all night she did cough up some blood, he is aware. report given to night RN, call light in reach.
--- NOTE | 2024-02-13 19:35 | NUR ---
report given to PCU nurse. will transfer when room clean.
[2024-02-13 20:54] VITALS: BP 149/102
[2024-02-13] MEDS ORDERED: Gabapentin 300 MG Cap PO SCH (21:00)
[2024-02-13] MEDS ORDERED: Montelukast Sodium 10 MG Tab PO SCH (21:00)
[2024-02-13 21:07] LABS: Base Excess Venous 3.1 mmol/L; Bicarbonate Venous 25.9 mmol/L (24.0-30.0); PCO2 Venous 46.2 mmHg (38-42); pH Blood Venous 7.39 (7.34-7.37)
[2024-02-14] VITALS: BP 125/86
--- NOTE | 2024-02-14 00:59 | NUR ---
PT HOME MEDS TAKEN TO PHARMACY BY TEXTILE MACHINERY INSTRUCTOR AND ARE BEING STORED BY PHARMACY. MEDICATION RECEIPT PLACED IN PT PHYSICAL CHART.
[2024-02-14 04:55] LABS: BASOPHILS ABSOLUTE AUTO 0.02 K/mm3 (0.00-0.23); BASOPHILS PERCENT AUTO 0 % (0-2); EOSINOPHILS PERCENT AUTO 0 % (0-6); Hematocrit 36.2 % (33.0-51.0); Hemoglobin 11.8 g/dL (11.5-16.0); IMMATURE GRAN ABSOLUTE AUTO 0.12 K/mm3 (0.00-0.10); IMMATURE GRAN PERCENT AUTO 2 % (0-1); LYMPHOCYTES ABSOLUTE AUTO 0.54 K/mm3 (0.84-5.20); LYMPHOCYTES PERCENT AUTO 10 % (21-46); MONOCYTES PERCENT AUTO 4 % (4-13); Mean Corpuscular HGB 29.6 pg (26.0-34.0); Mean Corpuscular HGB Conc 32.6 g/dL (31.5-36.5); Mean Corpuscular Volume 91 fL (80-100); Mean Platelet Volume 9.6 fL (9.1-12.4); NEUTROPHILS ABSOLUTE AUTO 4.56 K/mm3 (1.96-9.15); NEUTROPHILS PERCENT AUTO 84 % (41-73); NRBC ABSOLUTE 0.06 K/mm3 (0.00-0.02); NRBC Auto 1.1 /100 WBC (0.0-0.2); Platelet Count 112 K/mm3 (150-400); RDW Coefficient Variation 16.1 % (11.7-14.2); RDW Standard Deviation 53.2 fL (35.1-46.3); Red Blood Cell Count 3.99 M/mm3 (3.80-5.20); White Blood Cell Count 5.44 K/mm3 (4.00-11.30)
[2024-02-14 05:14] LABS: Bun/Creatinine Ratio 38.1 (12.0-20.0); Calcium, Blood 8.9 mg/dL (8.5-10.1); Creatinine, Blood 0.47 mg/dL (0.40-1.00); Potassium, Blood 3.7 mmol/L (3.5-5.5)
[2024-02-14 05:21] VITALS: BP 137/93
[2024-02-14 07:23] VITALS: BP 132/81
--- NOTE | 2024-02-14 08:55 | NUR ---
ASSUMPTION OF CARE PT ALERT AND ORIENTED, ANXIOUS, COOPERATIVE TO CARE, SKIN INTACT, NO BREAKDOWN NOTED, SCATTERED BRUISING T/O, HR IN THE 100'S -130'S, SBP STABLE, DENIES CHEST, 02 >92% ON 4L VIA NC, 3L AT BASELINE, RESPIRATIONS SHALLOW AND TACHYPENIC, SOB, PT WITH A PRODUCTIVE COUGH, MOD AMOUNT OF BANKS/RED SPUTUM. +BS, FIRM, PAINFUL ABD, MEDICATING PER EMAR SHE REPORTS CHRONIC BLOODY STOOLS, MD NOTIFIED. PT DENIES QUESTINS OR CONCERNS AT THIS TIME, WILL CONTINUE TO MONITOR.
[2024-02-14] MEDS ORDERED: Dexamethasone Sod Phos 10 MG/ML 1ML VIAL IV SCH (09:00)
[2024-02-14 11:30] VITALS: BP 115/79
[2024-02-14] MEDS ORDERED: HYDROmorphone HCl/Pf 1MG SYR IV PRN ×3 (11:45→14:05)
[2024-02-14] MEDS ORDERED: NS 1,000 ML IV SCH (11:50)
[2024-02-14 15:40] VITALS: BP 126/81
--- NOTE | 2024-02-14 18:46 | NUR ---
NURSING PCU DAYSHIFT SUMMARY: Pt has done well t/o shift. OOB to recliner this a.m. after bedbath. Two staff assisst for reassurance and line management, able to stand independently. Once in recliner, respiration rate improved as well as heart rate and comfort level. Continues to c/o abd pain which is being treated w/meds as ordered. P.T. and tree and shrub technician at bedside for education. Visit from s/o and kids this evening. While at rest, pt has been on phone shopping and talking with friends/family. Appears in good spirits though verbalizes desire to discharge to SNF when medically stable. Requires much encouragement to participate in ADLs such as repositioning and toileting. Becomes fearful and anxious when anticipating physical exertion though is able to tolerate and settles quickly. No s/s of acute distress at this time. Pt remains in recliner, call light in reach, denies current needs. Cont to monitor until rpt is given to JEZ RN.
[2024-02-14 20:45] VITALS: BP 126/81
[2024-02-14] MEDS ORDERED: ZILEUTON 600 MG PO SCH (21:00)
[2024-02-15] VITALS (7 sets, daily range): BP systolic 120–161; BP diastolic 72–100
[2024-02-15 04:10] LABS: Hematocrit 35.9 % (33.0-51.0); Hemoglobin 11.7 g/dL (11.5-16.0); Mean Corpuscular HGB 29.9 pg (26.0-34.0); Mean Corpuscular HGB Conc 32.6 g/dL (31.5-36.5); Mean Corpuscular Volume 92 fL (80-100); Mean Platelet Volume 9.4 fL (9.1-12.4); Platelet Count 113 K/mm3 (150-400); RDW Coefficient Variation 16.2 % (11.7-14.2); RDW Standard Deviation 54.5 fL (35.1-46.3); Red Blood Cell Count 3.91 M/mm3 (3.80-5.20); White Blood Cell Count 2.48 K/mm3 (4.00-11.30)
[2024-02-15] MEDS ORDERED: Furosemide 10 MG / ML 2ML Vial IV ONE (04:25)
--- NOTE | 2024-02-15 04:25 | NUR ---
UPDATE PATIENT CALLED THIS RN TO BEDSIDE. PATIENT STATING SHE IS UNABLE TO BREATHE. PATIENT WEARIN 4-6L NC WITH SPO2 HIGH 80s LOW 90s. PATIENT TACHYPNEIC, TACHYCARDIAC IN THE 120-130s AND DIAHPHORETIC. PATIENT AUDIBLY WHEEZY. NO CHANGES TO LUNG SOUNDS OTHERWISE. PATIENT REMAINS WITH CRACKLES IN THE BASES. IV FLUIDS STOPPED PATIENT IS TOLERATING PO FLUIDS. RT CALLED, GAVE BREATHING TREATMENT. RT ENCOURAGING PATIENT TO WEAR HOME CPAP. HOSPITALIST DR. JACKMAN CALLED WITH UPDATE, ORDERS FOR BNP AND OT DOSE LASIX ORDERED.
[2024-02-15 04:35] LABS: Albumin, Blood 2.4 g/dL (3.4-5.0); Albumin/Globulin Ratio 0.6 (0.8-1.8); Bilirubin, Total 0.4 mg/dL (0.1-1.0); Calcium, Blood 9.3 mg/dL (8.5-10.1); Creatinine, Blood 0.49 mg/dL (0.40-1.00); Globulin, Blood 3.7 g/dL (2.2-4.0); Potassium, Blood 3.7 mmol/L (3.5-5.5); Total Protein, Blood 6.1 g/dL (6.4-8.2)
[2024-02-15 04:36] LABS: BAND PERCENT MAN 22 % (0-8); BASOPHILS PERCENT MAN 0 % (0-2); EOSINOPHILS PERCENT MAN 0 % (0-6); LYMPHOCYTES ABSOLUTE MAN 0.29 K/mm3 (0.84-5.20); LYMPHOCYTES PERCENT MAN 12 % (21-46); METAMYELOCYTE ABSOLUTE MAN 0.12 K/mm3 (0.00-0.00); METAMYELOCYTE PERCENT MAN 5 % (0-0); MONOCYTES ABSOLUTE MAN 0.19 K/mm3 (0.16-1.47); MONOCYTES PERCENT MAN 8 % (4-13); MYELOCYTE ABSOLUTE MAN 0.07 K/mm3 (0.00-0.00); MYELOCYTE PERCENT MAN 3 % (0-0); NEUTROPHILS ABSOLUTE MAN 1.78 K/mm3 (1.96-9.15); SEG NEUTROPHILS PERCENT MAN 50 % (41-73); TOTAL CELLS COUNTED 100
--- NOTE | 2024-02-15 06:12 | NUR ---
SHIFT SUMMARY PATIENT ALERT AND ORIENTED x4. ABLE TO MAKE NEEDS KNOWN TO STAFF. PATIENT REQUIRING ENCOURAGEMENT TO PARTICPATE IN CARE. PATIENT STATES THAT PAIN IS THE REASON BEHIND PATIENT NOT PARTICIPATING. BP STABLE. PATIENT ON 4-6L NC WITH SPO2 LOW 90s. PATIENT ENCOURAGED TO WEAR HOME CPAP, PATIENT WORE OFF AND ON DURING THE NIGHT. BREATHING TREATMENTS PER RT. PUREWICK IN PLACE, DARK URINE OUT TO SUCTION. PATIENT MEDICATED FOR PAIN PER EMAR. NO OTHER CHANGES, WILL REPORT TO DAY SHIFT RN.
[2024-02-15] MEDS ORDERED: Insulin NPH 100 Unit / ML 10ML Vial SC ONE (07:50)
[2024-02-15] MEDS ORDERED: HyDROXyzine HCl 25 MG Tab PO PRN (08:30)
[2024-02-15] MEDS ORDERED: Insulin Human Lispro 100 Units/ML 3ML Syringe SC SCH ×2 (08:30→11:30)
[2024-02-15] MEDS ORDERED: Lactobacil 2-S.Thermo-Bifido 1 1 Cap PO SCH (13:00)
[2024-02-15] MEDS ORDERED: Ampicillin Sod/Sulbactam Sod 1.5 GM in NS 100 ML IV SCH (13:04)
[2024-02-15] MEDS ORDERED: Piperacillin/Tazobactam Sod 4.5 GM in NS 100 ML IV SCH (18:00)
--- NOTE | 2024-02-15 18:36 | NUR ---
ASSUMED CARE OF PT AT 0700 THIS AM. PT C/O INCREASING DYSPNEA THIS AM, O2 DEMANDS HAVE INCREASED TO 8L VIA NC. RT REPLACED NC WITH HIGH FLOW NC, HUMIDIFIED. CONTINUOUS PULSE OX AND TELEMETRY IN PLACE. CXR TODAY SUGGESTIVE OF PNA PER RADIOLOGY REPORT. PT STARTED ON IV ABX AND STRONGLY ENCOURAGED TO USE I.S. THAT WAS PLACED WITHIN HER REACH. PT DID WORK WITH PHYSICAL THERAPY TODAY AND WAS OOB TO COMMODE AND OOB TO CHAIR FOR MOST OF THE DAY. PT NOTED TO HAVE SUGARY FOODS AND FRUITS ON HER OVERBED TABLE T/O THE DAY. PT REQUESTING SNACKS FREQUENTLY. BLOOD SUGARS>300 TWICE THIS SHIFT. MD TEAM AWARE AND INCREASED SS INSULIN AND MEAL TIME INSULIN, PT IS ALSO ON IV DEX. THIS RN SPOKE WITH CUSTOMER DEVELOPMENT MANAGER WELL TODAY, SHE HAS GIVEN PT EDUCATION AND HANDOUTS. PT VISITED WITH FAMILY/FRIENDS T/O THE DAY. PT VOICES PLANS TO GET HOME CARE, REHAB, TAKE BETTER CARE OF HERSLEF. PT IS ABLE TO USE CALL LIGHT APPROPRIATELY AND MAKE NEEDS KNOWN. PT IS IN RECLINER CHAIR AT THIS TIME, BRAKES LOCKED, AND CALL LIGHT IN REACH. WILL CONTINUE TO MONITOR AND GIVE REPORT TO NOC SHIFT RN.
[2024-02-15] MEDS ORDERED: Albuterol 2.5 MG/3 ML VIAL INH PRN (21:25)
[2024-02-15] MEDS ORDERED: Ipratropium/Albuterol SulF 2.5-0.5MG/3 ML Amp INH SCH (21:25)
[2024-02-16 04:29] LABS: Hematocrit 29.9 % (33.0-51.0); Hemoglobin 9.9 g/dL (11.5-16.0); Mean Corpuscular HGB Conc 33.1 g/dL (31.5-36.5); Mean Corpuscular Volume 91 fL (80-100); Mean Platelet Volume 9.8 fL (9.1-12.4); NRBC ABSOLUTE 0.02 K/mm3 (0.00-0.02); NRBC Auto 0.9 /100 WBC (0.0-0.2); Platelet Count 108 K/mm3 (150-400); RDW Coefficient Variation 15.8 % (11.7-14.2); RDW Standard Deviation 52.9 fL (35.1-46.3); White Blood Cell Count 2.16 K/mm3 (4.00-11.30)
[2024-02-16 04:56] LABS: Albumin, Blood 2.1 g/dL (3.4-5.0); Albumin/Globulin Ratio 0.5 (0.8-1.8); Bilirubin, Total 0.6 mg/dL (0.1-1.0); Bun/Creatinine Ratio 33.3 (12.0-20.0); Creatinine, Blood 0.48 mg/dL (0.40-1.00); Potassium, Blood 3.9 mmol/L (3.5-5.5); Total Protein, Blood 6.1 g/dL (6.4-8.2)
[2024-02-16 05:29] LABS: BAND PERCENT MAN 17 % (0-8); BASOPHILS PERCENT MAN 0 % (0-2); EOSINOPHILS PERCENT MAN 0 % (0-6); LYMPHOCYTES PERCENT MAN 14 % (21-46); METAMYELOCYTE PERCENT MAN 5 % (0-0); MONOCYTES ABSOLUTE MAN 0.28 K/mm3 (0.16-1.47); MONOCYTES PERCENT MAN 13 % (4-13); MYELOCYTE ABSOLUTE MAN 0.08 K/mm3 (0.00-0.00); MYELOCYTE PERCENT MAN 4 % (0-0); NEUTROPHILS ABSOLUTE MAN 1.38 K/mm3 (1.96-9.15); SEG NEUTROPHILS PERCENT MAN 47 % (41-73); TOTAL CELLS COUNTED 100
[2024-02-16 05:42] VITALS: BP 144/91
--- NOTE | 2024-02-16 06:04 | NUR ---
SHIFT SUMMARY PATIENT ALERT AND ORIENTED x4. ABLE TO MAKE NEEDS KNOWN TO STAFF. PATIENT REQUIRING SIGNIFICANT ENCOURAGEMENT TO PARTICIPATE IN CARE. PATIENT EDUCATED ON NARCOTIC USE AND PATIENT RECEPTIVE TO ATTEMPTING TO MANAGE PAIN WITH ORAL PAIN MEDICATIONS. PATIENT REPORTING ABDOMINAL PAIN BUT HAS BEEN REQUESTING SNACKS/ICE CREAM/HOME FRUITS WHILE AWAKE. MEDICATED PER EMAR FOR GENERALIZED PAIN. BP STABLE. NO EVENTS ON TELE OVERNIGHT. PATIENT WEARING 6-8L NC WITH SPO2 LOW TO MID 90s. PATIENT ENCOURAGED TO WEAR HOME CPAP WHILE SLEEPING, PATIENT BEGAN WEARING HOME CPAP AROUND 0200. SPUTUM SAMPLE SENT THIS SHIFT. PATIENT CONTINUES TO HAVE PRODUCTIVE COUGH. PUREWICK IN PLACE, DARK YELLOW URINE OUT. REPOSITIONING PATIENT PER HER REQUEST. NO OTHER CHANGES, WILL REPORT TO DAY SHIFT RN.
[2024-02-16 08:51] VITALS: BP 149/93
[2024-02-16] MEDS ORDERED: Cyclobenzaprine HCl 10 MG Tab PO PRN (09:20)
[2024-02-16] MEDS ORDERED: HYDROmorphone HCl/Pf 1MG SYR IV PRN (09:20)
[2024-02-16] MEDS ORDERED: GuaiFENesin 600 MG TabCR PO SCH (10:00)
[2024-02-16] MEDS ORDERED: Polyethylene Glycol 3350 17 gm PO PRN (10:35)
[2024-02-16 12:06] VITALS: BP 135/85
[2024-02-16] MEDS ORDERED: Insulin Human Lispro 100 Units/ML 3ML Syringe SC SCH ×2 (12:30→17:30)
--- NOTE | 2024-02-16 15:29 | NUR ---
Patient is sitting on a chair and crying when I walk in the patient's rm. She tells me that she feels blindsided by the results of the OT eval. She states that she not only will not be going to a SNF she will be discharged home and "will not have the support that she needs," according to the patient. She is very tearful as she explains about how she gets better while in the hospital and then goes home and almost immediately begins to decline because of lack of RN care, lack of assistance with house hold chores and spotty PT and ST support. I explain about our wonderful Care Coordinators and the goals for a safe and meaningful discharge plan they help to execute for our patients. I tell the patient that I will have someone from our care team visit her soon. I provided encouragement, gentle service counselor and prayer. Patient showed signs of reduced stress and an elevated mood. I talked with Thalia from the care team who gave further insight into the case and stated that she will, in fact, visit with the patient when she is freed up to do so.
[2024-02-16 16:43] LABS: Hematocrit 31.4 % (33.0-51.0); Hemoglobin 10.4 g/dL (11.5-16.0)
--- NOTE | 2024-02-16 17:48 | NUR ---
ASSUMED CARE OF PT AT 0700 THIS AM. O2 DEMANDS TODAY HAVE DECREASED FROM 8L TO 7L VIA NC. PT HAS HAD LARGE AMOUNT OF THICK BANKS/PINK SPUTUM TODAY, SHE HAS BEEN USING THE FLUTTER VALVE AND I.S. INTERMITTENTLY. PT IS ABLE TO AMBULATE TO RESTROOM AND HAVE A BM TODAY. PT IS AGREEABLE TO USING LESS PAIN MEDICATION ( DISCUSSED W DR AMBROSIO/MD TEAM THIS AM) AND IS AGREEABLE TO ONLY USING THE IV DILAUDID PRIOR TO PHYSICAL THERAPY TO IMPROVE HER ABILITY TO PARTICIPATE IN THERAPY. PT WAS ABLE TO WALK WITH PHYSICAL THERAPY AND FWW TO THE DOORWAY OF HER ROOM, SEE PHYSICAL THERAPIST NOTE FROM TODAY FOR DETAILS. PT WAS UPSET THIS AFTERNOON AFTER PHYSICAL THERAPY BECAUSE SHE WAS INFORMED THAT SHE IS IMPROVING HER PHYSICAL STATUS AND NO LONGER WOULD NEED SNF REHAB POST DISCHARGE. PT HAS STATED TO THIS RN THAT SHE DOESN'T WANT TO GO TO SNF FOR REHAB, SHE WANTS TO GO HOME. OVER THE LAST TWO DAY SHIFTS WORKING WITH THIS PT, IT APPEARS HER OPINION IS THAT SHE NEEDS 24/7 CAREGIVERS. OF YESTERDAY SHE STATED TO THIS RN "I CAN'T WALK" ALTHOUGH SHE WALKED TO RESTROOM TODAY. PT HAS BEEN DIFFICULT FOR STAFF TO PLEASE, MANIPULATIVE, OFTEN CONTROLING, WITH EMOTIONAL OUTBURSTS NOTED. PT COMPLAINS ABOUT HER MEALS, STAFF MEMBERS, HER MEDICAL CARE, ECT... CARE MANAGEMENT IS INVOLVED TO HELP HER WITH OUTPT SERVICES AND ACIDIZER JF SPOKE WITH PT TODAY WELL. TODAY, THIS RN NOTED, THAT PT CONTINUED TO EAT LARGE AMOUNTS OF FRUIT AND SNACKS T/O THE DAY. BLOOD GLUCOSE 200-300s, WITH MD TEAM INCREASING SLIDING SCALE TO HIGH AND MEAL TIME INSULIN TO 10 UNITS. OVERALL, PT'S MEDICAL CONDITION APPEARS TO BE IMPROVING WTH LOWER HR, DECREASED O2 DEMANDS AND IMPROVED ACTIVITY TOLERANCE TODAY. PT MAY BENEFIT FROM A PSYCHIATRIC EVALUATION FOR HER VERY ODD, CONTROLING AND MANIPULATIVE BEHAVIOR. PT HAS BEEN OOB AND IN RECLINER SINCE APROX 0800 THIS AM. PT IS ABLE TO USE CALL LIGHT FOR NEEDS, CALL LIGHT IN REACH, WILL CONTINUE TO MONITOR AND GIVE REPORT TO NOC SHIFT RN.
[2024-02-16 20:30] VITALS: BP 161/74
[2024-02-16 23:27] VITALS: BP 123/86
[2024-02-17 03:11] VITALS: BP 159/96
[2024-02-17 04:39] LABS: Hematocrit 29.5 % (33.0-51.0); Hemoglobin 9.6 g/dL (11.5-16.0); Mean Corpuscular HGB 29.9 pg (26.0-34.0); Mean Corpuscular HGB Conc 32.5 g/dL (31.5-36.5); Mean Corpuscular Volume 92 fL (80-100); Mean Platelet Volume 9.8 fL (9.1-12.4); NRBC ABSOLUTE 0.02 K/mm3 (0.00-0.02); NRBC Auto 0.6 /100 WBC (0.0-0.2); Platelet Count 122 K/mm3 (150-400); RDW Coefficient Variation 15.4 % (11.7-14.2); RDW Standard Deviation 52.4 fL (35.1-46.3); Red Blood Cell Count 3.21 M/mm3 (3.80-5.20); White Blood Cell Count 3.27 K/mm3 (4.00-11.30)
[2024-02-17 05:03] LABS: Albumin, Blood 2.1 g/dL (3.4-5.0); Albumin/Globulin Ratio 0.5 (0.8-1.8); Bilirubin, Total 0.4 mg/dL (0.1-1.0); Bun/Creatinine Ratio 49.8 (12.0-20.0); Creatinine, Blood 0.4 mg/dL (0.40-1.00); Potassium, Blood 3.9 mmol/L (3.5-5.5); Total Protein, Blood 6.1 g/dL (6.4-8.2)
[2024-02-17 05:36] LABS: BAND PERCENT MAN 10 % (0-8); BASOPHILS PERCENT MAN 0 % (0-2); EOSINOPHILS PERCENT MAN 0 % (0-6); LYMPHOCYTES ABSOLUTE MAN 0.22 K/mm3 (0.84-5.20); LYMPHOCYTES PERCENT MAN 7 % (21-46); MONOCYTES ABSOLUTE MAN 0.35 K/mm3 (0.16-1.47); MONOCYTES PERCENT MAN 11 % (4-13); MYELOCYTE ABSOLUTE MAN 0.06 K/mm3 (0.00-0.00); MYELOCYTE PERCENT MAN 2 % (0-0); NEUTROPHILS ABSOLUTE MAN 2.61 K/mm3 (1.96-9.15); SEG NEUTROPHILS PERCENT MAN 70 % (41-73); TOTAL CELLS COUNTED 100
--- NOTE | 2024-02-17 06:10 | NUR ---
SHIFT SUMMARY PATIENT ALERT AND ORIENTED X4. SHE HAS GENERALIZED WEAKNESS AND PAIN IN HER FEET CAUSING A NEED FOR 1 ASSIST TO THE BEDSIDE COMMODE. SHE WAS MEDICATED PER EMAR FOR PAIN. ON 6 LITERS O2 VIA NASAL CANULA WITH SPO2 >90%. PATIENT SLIGHTLY HYPERTENSIVE, SINUS RHYTHM ON TELE. NO ACUTE ISSUES NOTED OVERNIGHT. WILL CONTINUE TO MONITOR. CALL LIGHT WITHIN REACH.
[2024-02-17 10:30] VITALS: BP 144/92
[2024-02-17 12:52] VITALS: BP 134/91
--- NOTE | 2024-02-17 13:28 | NUR ---
SPOKE WITH PATIENTS PANTOGRAPH TRANSFERRERTIM AT [facility]. UPDATE GIVEN ON PATIENT STATUS AND DISCHARGE PLANS
[2024-02-17 16:30] VITALS: BP 127/82
--- NOTE | 2024-02-17 17:14 | NUR ---
SHIFT SUMMARY N AOX4, patient heavily relies on staff for ADLS, needs to be strongly encouraged and reminded to perform tasks for herself. Mood labile. Pain: Complaints of pain in feet and side throughout the day - medicated per JUN. C: SR/ST on tele, no acute issues during shift R: 6L NC, productive and strong cough. lungs dim. GI/ : Several small soft, non-bloody BMs today. Pt is able to ambulate to the bathroom and should be encourage to do so. Not compliant with diabetic diet, family is bringing in outside food. Education provided but patient is not very receptive. S: scattered abrasions, MASD to belly folds and underarms with some small open areas noted under belly. LINES Bilateral PIV Pt ambulated to bathroom and within room several times today, only requiring stand-by assist to manage lines. Left in bed with call silverman within reach.
[2024-02-17 21:03] VITALS: BP 140/94
[2024-02-18 04:05] LABS: Hematocrit 29.6 % (33.0-51.0); Hemoglobin 9.5 g/dL (11.5-16.0); Mean Corpuscular HGB 29.8 pg (26.0-34.0); Mean Corpuscular HGB Conc 32.1 g/dL (31.5-36.5); Mean Corpuscular Volume 93 fL (80-100); Mean Platelet Volume 9.9 fL (9.1-12.4); NRBC ABSOLUTE 0.06 K/mm3 (0.00-0.02); NRBC Auto 1.4 /100 WBC (0.0-0.2); Platelet Count 126 K/mm3 (150-400); RDW Coefficient Variation 15.4 % (11.7-14.2); RDW Standard Deviation 52.8 fL (35.1-46.3); Red Blood Cell Count 3.19 M/mm3 (3.80-5.20); White Blood Cell Count 4.33 K/mm3 (4.00-11.30)
[2024-02-18 04:06] VITALS: BP 119/76
[2024-02-18 04:34] LABS: Albumin, Blood 2.1 g/dL (3.4-5.0); Albumin/Globulin Ratio 0.6 (0.8-1.8); Bilirubin, Total 0.3 mg/dL (0.1-1.0); Bun/Creatinine Ratio 50.3 (12.0-20.0); Calcium, Blood 9.3 mg/dL (8.5-10.1); Creatinine, Blood 0.5 mg/dL (0.40-1.00); Globulin, Blood 3.6 g/dL (2.2-4.0); Potassium, Blood 3.8 mmol/L (3.5-5.5); Total Protein, Blood 5.7 g/dL (6.4-8.2)
[2024-02-18 05:06] LABS: BAND PERCENT MAN 16 % (0-8); BASOPHILS PERCENT MAN 0 % (0-2); EOSINOPHILS ABSOLUTE MAN 0.04 K/mm3 (0.00-0.68); EOSINOPHILS PERCENT MAN 1 % (0-6); LYMPHOCYTES % ATYPICAL MANUAL 1 % (0-0); LYMPHOCYTES ABSOLUTE MAN 0.47 K/mm3 (0.84-5.20); LYMPHOCYTES PERCENT MAN 10 % (21-46); METAMYELOCYTE ABSOLUTE MAN 0.17 K/mm3 (0.00-0.00); METAMYELOCYTE PERCENT MAN 4 % (0-0); MONOCYTES ABSOLUTE MAN 0.25 K/mm3 (0.16-1.47); MONOCYTES PERCENT MAN 6 % (4-13); MYELOCYTE ABSOLUTE MAN 0.43 K/mm3 (0.00-0.00); MYELOCYTE PERCENT MAN 10 % (0-0); NEUTROPHILS ABSOLUTE MAN 2.94 K/mm3 (1.96-9.15); SEG NEUTROPHILS PERCENT MAN 52 % (41-73); TOTAL CELLS COUNTED 100
--- NOTE | 2024-02-18 06:30 | NUR ---
SHIFT SUMMARY PATIENT ALERT AND ORIENTED X4. STAND BY ASSIST FOR LINE MANAGEMENT. PATIENT WAS AMBULATING TO THE RESTROOM AND BACK. SHE WAS MEDICATED PER EMAR FOR PAIN AND NAUSEA. SHE HAS A PRODUCTIVE COUGH WITH THICK BANKS SPUTUM. SHORT OF BREATH UPON EXERTION, CURRENTLY ON 7 LITERS O2 VIA NASAL CANULA. VITAL SIGNS STABLE. PATIENT FREQUENTLY ASKED FOR SNACKS ALL NIGHT. NO ACUTE ISSUES NOTED. WILL CONTINUE TO MONITOR. CALL LIGHT WITHIN REACH.
[2024-02-18 08:16] VITALS: BP 145/73
[2024-02-18 11:35] VITALS: BP 140/89
--- NOTE | 2024-02-18 12:47 | NUR ---
AM NOTE: PATIENT ALERT AND ORIENTED. MOVING AL EXTREMITIES AND FOLLOWING ALL COMMANDS. UP WITH SBA WITH FWW TO BATHROOM. OVERALL WEAK AND SLOW MOVING. COMPLAINS OF 9/10 PAIN SCATTERED THROUGHOUT HER BACK, RIGHT SIDE AND BILATERAL FEET. MEDICATED PER EMAR. TELE SHOWING SR/ST WITH HR 90-110'S. DENIES CHEST PAIN/PRESSURE/PALPITATIONS. EDEMA NOTED TO BLE. IV ABX INFUSED. BRUISING NOTED TO ABDOMIN. SBP 140'S. ON 6-7L HIGH FLOW NASAL CANNULA SATING 90-94%. TITRATING ABLE. WHEN UP TO BATHROOM PATIENT UP TO 12L. RESPIRATORY RATE 18-24. SOB WHEN UP TO BATHROOM. RESPIRATORY IN TO GIVE BREATHING TREATMENTS. CPAP AT BEDSIDE FOR NOC. INCENTIVE SPIROMETER AT BEDSIDE. PATIENT ENCOURAGED TO USE. BOWEL TONES PRESENT IN ALL FOUR QUADRANTS. TOELRATING DIET. DENIES ABDOMINAL PAIN/NAUSEA. ACHS BLOOD SUGARS. UP TO BATHROOM TO VOID. ATTENDS IN PLACE. SKIN FOLDS CLEANED AND CREAM APPLIED. PATIENT TALKING WITH FAMILY ON PHONE THIS AM. CALL LIGHT IN REACH. EATING LUNCH AT THIS TIME. DENIES NEEDS.
[2024-02-18] MEDS ORDERED: Sodium Chloride 3% For Inhalation 15 ML VIAL.NEB INH SCH (14:10)
[2024-02-18 15:43] VITALS: BP 136/84
--- NOTE | 2024-02-18 16:58 | NUR ---
TRANSFER TO [facility]. THIS RN REPORTED OFF TO MED FLOOR RN. VITALS REMAIN STABLE. TELE CONTINUES TO SHOW SR/ST. REMAINS ON 6-7L HIGH FLOW. MEDICATED RECENTLY FOR PAIN. IV ABX INFUSING. PATIENT UPDATED FAMILY VIA PERSONAL PHONE ON TRANSFER.
[2024-02-18 17:16] VITALS: BP 136/82
--- NOTE | 2024-02-18 18:04 | NUR ---
PT ARRIVED TO ROOM AT 1700 CURRENTLY ON 6L HIGH FLOW NASAL CANULA. PT AOX4 AND COOPERATIVE OF CARE. PT REPOSTIONED AND HELPED TO REPOSITION IN BED. PT HAS CALL LIGHT WITHIN REACH WILL CONTINUE TO MONITOR.
[2024-02-19] MEDS ORDERED: NS 250 ML IV PRN (00:30)
[2024-02-19 05:07] VITALS: BP 134/87
--- NOTE | 2024-02-19 06:21 | NUR ---
SHIFT SUMMARY PT IN BED RESTING AT START OF SHIFT. PLEASANT AND WELL-VERSED IN HER HEALTH CARE AND HEALTH HX. SHE STATED SHE BELIEVED TO HAVE LEFT SOME SUGAR-FREE SPRITE FROM HOME IN HER ROOM IN U18. THIS RN CALLED PCU CHARGE NURSE WHO LOOKED AROUND, BUT DID NOT FIND SPRITE. PT HAS BEEN ABLE TO GET UP WITH ASSISTANCE TO BEDSIDE COMMODE. SHE HAS BEEN EXPERIENCING SOME LOOSE STOOLS TODAY. PT REQUESTED BREATHING TX, GIVEN AT 2240. PT HAS SOME RED, DRY AREAS ON HER BOTTOM. BARRIER CREAM APPLIED, AND PT STATES "IT FEELS BETTER." PT STATES HER FEET ARE "REALLY HURTING BAD." HEATING PAD OFFERED AND ACCEPTED. PT RESTING COMFORTABLY. 2100 VITALS DID NOT UPLOAD. THIS RN WITNESSED CALL CENTER ANALYST TAKE VITALS, HOWEVER. PT CPAP PLACED ON APPROX 0550. PT REQUESTS TO BE UNDESTURBED UNTIL MORNING MEDS PASS. REQUESTS BEDSIDE SHIFT REPORT NOT TAKE PLACE AT BEDSIDE. PT RESTING COMFORTABLY. CALL LIGHT IN REACH.
[2024-02-19 06:57] LABS: Hematocrit 31.6 % (33.0-51.0); Mean Corpuscular HGB Conc 31.6 g/dL (31.5-36.5); Mean Corpuscular Volume 95 fL (80-100); NRBC ABSOLUTE 0.06 K/mm3 (0.00-0.02); NRBC Auto 1.1 /100 WBC (0.0-0.2); Platelet Count 127 K/mm3 (150-400); RDW Coefficient Variation 15.9 % (11.7-14.2); RDW Standard Deviation 55.4 fL (35.1-46.3); Red Blood Cell Count 3.33 M/mm3 (3.80-5.20); White Blood Cell Count 5.43 K/mm3 (4.00-11.30)
[2024-02-19 07:20] LABS: Albumin, Blood 2.3 g/dL (3.4-5.0); Albumin/Globulin Ratio 0.6 (0.8-1.8); Bilirubin, Total 0.4 mg/dL (0.1-1.0); Bun/Creatinine Ratio 47.1 (12.0-20.0); Calcium, Blood 8.8 mg/dL (8.5-10.1); Creatinine, Blood 0.51 mg/dL (0.40-1.00); Globulin, Blood 3.7 g/dL (2.2-4.0); Potassium, Blood 3.9 mmol/L (3.5-5.5)
[2024-02-19 07:36] VITALS: BP 142/93
[2024-02-19 07:43] LABS: BAND PERCENT MAN 16 % (0-8); BASOPHILS PERCENT MAN 0 % (0-2); EOSINOPHILS PERCENT MAN 0 % (0-6); LYMPHOCYTES ABSOLUTE MAN 0.59 K/mm3 (0.84-5.20); LYMPHOCYTES PERCENT MAN 11 % (21-46); METAMYELOCYTE ABSOLUTE MAN 0.21 K/mm3 (0.00-0.00); METAMYELOCYTE PERCENT MAN 4 % (0-0); MONOCYTES ABSOLUTE MAN 0.16 K/mm3 (0.16-1.47); MONOCYTES PERCENT MAN 3 % (4-13); MYELOCYTE ABSOLUTE MAN 0.59 K/mm3 (0.00-0.00); MYELOCYTE PERCENT MAN 11 % (0-0); SEG NEUTROPHILS PERCENT MAN 54 % (41-73); TOTAL CELLS COUNTED 100
[2024-02-19 07:46] LABS: OTHER CELL PERCENT MAN 1 % (0-0)
[2024-02-19 15:47] VITALS: BP 137/88
--- NOTE | 2024-02-19 16:33 | NUR ---
SHIFT SUMMARY: PT AOX4 AND ORIENTED TO ROOM. LUNGS STILL SOUND DIMINISHED. PT 1 PERSON ASSIST W/ WALKER TO BSC/ RESTROOM DEPENDING ON HOW THEYRE BREATHING AND OXYGEN IS. SOMETIMES TOO FATIGUED TO GET TO RESTROOM AND JUST USE BEDSIDE COMMODE. STILL SNACKING A LOT ON OUTSIDE SNACKS AND DRINKS FROM FAMILY, BLOOD SUGARS CONTROLED WITH INSULIN AND REGULAR CHECKS. CONTINUES TO BE A BIT "OFF" WITH STAFF AND REQUIRING WEIRD TASKS REGULARLY. FAMILY VISITING REGULARLY. CONCERNED WITH GETTING ENOUGH HELP WHEN SHE EXITS THE HOSPITAL. WANTS FOLLOW UP WITH PT/ OT AND CASE MANAGEMENT ABOUT PERSONAL FINANCES. TOLERATING MEDICATION WELL. SEEMS TO BE SWELLING UP, DOCTORS NOTIFIED AND IV LASIX PRESCRIBED. PT WATCHING TV IN BED, BED IN LOWEST POSITION AND CALL LIGHT IN REACH. CONTINUING CARE.
[2024-02-19] MEDS ORDERED: Furosemide 10 MG/ML 4ML Vial IV SCH (18:00)
--- NOTE | 2024-02-19 18:15 | NUR ---
THIS APPLIANCE SALES ASSOCIATE HAS REVIEWED AND AGREES WITH ALL NOTES AND ASSESSMENTS BY TAY ALCOCER.
[2024-02-19 19:50] VITALS: BP 133/84
[2024-02-20 04:05] VITALS: BP 157/103
[2024-02-20 05:35] LABS: Hematocrit 33.6 % (33.0-51.0); Hemoglobin 10.6 g/dL (11.5-16.0); Mean Corpuscular HGB 30.4 pg (26.0-34.0); Mean Corpuscular HGB Conc 31.5 g/dL (31.5-36.5); Mean Corpuscular Volume 96 fL (80-100); NRBC ABSOLUTE 0.06 K/mm3 (0.00-0.02); NRBC Auto 0.8 /100 WBC (0.0-0.2); Platelet Count 147 K/mm3 (150-400); RDW Coefficient Variation 16.1 % (11.7-14.2); RDW Standard Deviation 56.3 fL (35.1-46.3); Red Blood Cell Count 3.49 M/mm3 (3.80-5.20); White Blood Cell Count 7.32 K/mm3 (4.00-11.30)
[2024-02-20 06:02] LABS: Albumin, Blood 2.4 g/dL (3.4-5.0); Albumin/Globulin Ratio 0.7 (0.8-1.8); BAND PERCENT MAN 13 % (0-8); BASOPHILS PERCENT MAN 0 % (0-2); Bilirubin, Total 0.6 mg/dL (0.1-1.0); Bun/Creatinine Ratio 43.5 (12.0-20.0); Calcium, Blood 8.6 mg/dL (8.5-10.1); Creatinine, Blood 0.53 mg/dL (0.40-1.00); EOSINOPHILS PERCENT MAN 0 % (0-6); Globulin, Blood 3.6 g/dL (2.2-4.0); LYMPHOCYTES % ATYPICAL MANUAL 1 % (0-0); LYMPHOCYTES ABSOLUTE MAN 0.95 K/mm3 (0.84-5.20); LYMPHOCYTES PERCENT MAN 12 % (21-46); METAMYELOCYTE ABSOLUTE MAN 0.43 K/mm3 (0.00-0.00); METAMYELOCYTE PERCENT MAN 6 % (0-0); MONOCYTES ABSOLUTE MAN 0.51 K/mm3 (0.16-1.47); MONOCYTES PERCENT MAN 7 % (4-13); MYELOCYTE ABSOLUTE MAN 0.36 K/mm3 (0.00-0.00); MYELOCYTE PERCENT MAN 5 % (0-0); NEUTROPHILS ABSOLUTE MAN 5.05 K/mm3 (1.96-9.15); Potassium, Blood 3.8 mmol/L (3.5-5.5); SEG NEUTROPHILS PERCENT MAN 56 % (41-73); TOTAL CELLS COUNTED 100
--- NOTE | 2024-02-20 06:30 | NUR ---
SHIFT SUMMARY AT START OF SHIFT, PT TRIED TO GET UP TO USE THE RESTROOM. SHE LOST HER FOOTING AND STUMBLED, BUT CAUGHT HERSELF ON THE BEDSIDE COMMODE. SHE STATED SHE "BUMPED HER KNEE." NO VISIBLE GILES NOTED. PT STATED "I NEED TO GO TO A REHAB FACILITY. MY DOES NOT WANT ME TO COME HOME. HE SAYS HE NEEDS SOME SPACE FROM ME." PT SEEMS SCARED, STATING "SOMETIMES, WHEN I'M STARTING TO DO BETTER, MY WILL GET MAD AT ME AND TELL ME I'M OVERDOING IT AND I DON'T LIKE GETTING IN TROUBLE." THIS RN ASKED IF SHE FELT SAFE GOING HOME. PT REPLIED, "I DON'T WANT MY TO GET INTO TROUBLE. HE'S A GOOD MAN. BUT HE WANTS SPACE RIGHT NOW, AND HE'S OVERWHELMED AND FED UP WITH ME." PT STATED THAT SHE NEEDS RESOURCES FOR FOOD, HOUSING, AND GENERALLY CARING FOR HERSELF AND FAMILY. PT REQUESTED VISIT FROM SECURITY GUARD DISPATCHER AND BI ANALYST. PUT IN REQUESTS FOR BI ANALYST, SPIRITUAL CARE, AND A VISIT FROM THE THERAPY DOG. PT WOKE APPROX 0400, ASKING FOR BREATHING TX. RT CALLED AND AT BEDSIDE 0405. PT VOICED DESIRE TO BE MORE CONCIENSIOUS OF HER DIET AND HER CARB INTAKE, TO HELP WITH HER DM MANAGEMENT. SHE HAS DOWNLOADED A CARB MANAGEMENT [employer] ON HER PHONE. SHE HAS ALSO REQUESTED HER BE EDUCATED ON HOW TO PROPERLY ASSIST FOR ADL'S WITH OT.
[2024-02-20 08:08] VITALS: BP 135/87
[2024-02-20] MEDS ORDERED: Insulin NPH 100 Unit / ML 10ML Vial SC SCH (09:00)
[2024-02-20 16:18] VITALS: BP 121/83
--- NOTE | 2024-02-20 17:52 | NUR ---
SHIFT SUMMARY: PT AOX4 WITH SOME WHEEZING AND DIMINISHED BREATH SOUNDS. HEART SOUND IS GOOD AND REGULAR. PT HAD A LONG TALK WITH EVENING NURSE AND SEEMS A LOT MORE MOTIVATED TO CHANGED DIET AND WORK TOWARDS BEING HEALTHIER. PT AND OT CONSULTS DONE WITH PT AND SEEMED TO TOLERATE THEM WELL AND ACTIVELY TRYING TO AMBULATE TO THE RESTROOM AND GET UP ON HER OWN. LESSENED SNACKS AND INCREASED VEGGIES TO SATIATE HUNGER. BLOOD SUGARS HAVE BEEN PRETTY STABLE TODAY, SUB 200. DR HARRINGTON TO TITRATE DOWN TO 5L OF O2 AND WATCHING SATS. CURRENTLY SATTING 94 ON 4L. HAS BEEN ABLE TO GET UP AND DO MORE SELF CARE. SOME MEDICATION FOR PAIN PER EMR. PT DISCUSSED DISCHARGE PLANS AT LENGTH WITH PT ADVOCATE AND CASE MANAGEMENT. SCHOLASTIC APTITUDE TEST GRADER CONSULT PUT IN TO AID PT WITH MAKING BETTER CHOICES AT HOME. PT DOING WELL AFTER SEEING CHILDREN AND . TOLERATING MEDS WELL AND EDEMA SEEMS TO BE GOING DOWN WITH DIURETICS. STILL PRODUCTIVE COUGH WITH BROWN TINGED SPUTUM. REQUESTS FOR SNACKS HAS DECREASED SINCE DAY BEFORE. PT APPEARS TO BE COMPLIANT AND WANTING TO DO BETTER. BED IN LOWEST POSITION AND CALL LIGHT IN REACH. CONTINUING CARE.
--- NOTE | 2024-02-20 18:00 | NUR ---
THIS GLASS SCULLION HAS REVIEWED AND AGREES WITH ALL NOTES AND ASSESSMENTS BY TAY ALCOCER.
[2024-02-20 19:57] VITALS: BP 136/87
[2024-02-21 05:12] VITALS: BP 150/84
[2024-02-21 05:44] LABS: Hematocrit 32.8 % (33.0-51.0); Hemoglobin 10.4 g/dL (11.5-16.0); Mean Corpuscular HGB 29.6 pg (26.0-34.0); Mean Corpuscular HGB Conc 31.7 g/dL (31.5-36.5); Mean Corpuscular Volume 93 fL (80-100); Mean Platelet Volume 9.8 fL (9.1-12.4); NRBC ABSOLUTE 0.05 K/mm3 (0.00-0.02); NRBC Auto 0.6 /100 WBC (0.0-0.2); Platelet Count 177 K/mm3 (150-400); RDW Coefficient Variation 16.2 % (11.7-14.2); RDW Standard Deviation 55.5 fL (35.1-46.3); Red Blood Cell Count 3.51 M/mm3 (3.80-5.20)
[2024-02-21 06:11] LABS: Albumin, Blood 2.4 g/dL (3.4-5.0); Albumin/Globulin Ratio 0.7 (0.8-1.8); Bilirubin, Total 0.4 mg/dL (0.1-1.0); Calcium, Blood 8.6 mg/dL (8.5-10.1); Creatinine, Blood 0.55 mg/dL (0.40-1.00); Globulin, Blood 3.5 g/dL (2.2-4.0); Potassium, Blood 3.7 mmol/L (3.5-5.5); Total Protein, Blood 5.9 g/dL (6.4-8.2)
[2024-02-21 06:16] LABS: BAND PERCENT MAN 15 % (0-8); BASOPHILS PERCENT MAN 0 % (0-2); EOSINOPHILS PERCENT MAN 0 % (0-6); LYMPHOCYTES ABSOLUTE MAN 1.54 K/mm3 (0.84-5.20); LYMPHOCYTES PERCENT MAN 18 % (21-46); METAMYELOCYTE ABSOLUTE MAN 0.43 K/mm3 (0.00-0.00); METAMYELOCYTE PERCENT MAN 5 % (0-0); MONOCYTES ABSOLUTE MAN 0.34 K/mm3 (0.16-1.47); MONOCYTES PERCENT MAN 4 % (4-13); MYELOCYTE ABSOLUTE MAN 0.25 K/mm3 (0.00-0.00); MYELOCYTE PERCENT MAN 3 % (0-0); NEUTROPHILS ABSOLUTE MAN 6.02 K/mm3 (1.96-9.15); SEG NEUTROPHILS PERCENT MAN 55 % (41-73); TOTAL CELLS COUNTED 100
--- NOTE | 2024-02-21 06:21 | NUR ---
SUMMARY: PT A/OX4, CALLS APPROPRIATELY TO SPECIFY NEEDS AND IS PLEASANT AND COOPERATIVE W/CARE. SHE CAN BE CONTANKEROUS AT TIMES AND CALLS FREQ FOR NON- ACUTE NEEDS. TURN SCHEDULE MAINTAINED AND PT IS UP W/1PA AND FWW TO TOILET. IV ABX RECIEVED FOR PNM AND SHE REMAINS ON 7L HIGH FLOW O2 WA AND CPAP AT HS W/CONT BIOX INTACT. SHE'S NSR/S.TACH ON TELE AT 90'S-100'S BPM. PT SNACKED FREQUENTLY W/ADA DIET ENCOURAGED BUT SHE ISN'T ALWAYS COMPLIANT DESPITE EDUCATION. SHE REQUESTED A LEN [employer] BREAKFAST SANDWICH REGARDLESS OF HIGH CARBS AND STAFF PROVIDING BETTER OPTIONS. ROXICODONE PROVIDED FOR TOLERABLE RELIEF OF ABDO PAIN. SHE HAD OWEN RED BLOOD IN THE TOILET THIS AM, UNCLEAR OF SOURCE GI HX AND RECENT SCOPE X1 WEEK AGO, DAY RN AWARE. NO ACUTE CHANGES, VSS/AFEBRILE. WCTM AND REPORT TO DAY RN.
[2024-02-21 07:25] VITALS: BP 119/77
--- NOTE | 2024-02-21 13:30 | NUR ---
Spiritual care visit conducted. Lengthy visit with the patient today. We cover many topics including but not limited to; conflict resolution, family dynamics, parenting, D/C concerns, finances and spirituality. I encouraged self-care, normalized her experience, reinforced helpful attitudes and practices and provided therapeutic listening and prayer. Patient responded well and showed signs of reduced stress. I will continue to remain available to patient and family.
[2024-02-21] MEDS ORDERED: ONDA4ODT SL (14:03)
[2024-02-21] MEDS ORDERED: FAMO20 PO (14:08)
[2024-02-21] MEDS ORDERED: METF500C PO (14:13)
[2024-02-21] MEDS ORDERED: DUPIXENT P300 MG/2 M SC (14:16)
[2024-02-21] MEDS ORDERED: IPRAT-ALBUT 0.5-3 ML NEB (14:17)
[2024-02-21] MEDS ORDERED: HUMALOG KW100 UNIT/1 SC (15:18)
[2024-02-21] MEDS ORDERED: HUMULIN N100 UNIT/6 SC (15:19)
--- NOTE | 2024-02-21 15:31 | NUR ---
DISCHARGE NOTE PT DISCHARGED HOME AT 1530. PT PROVIDED W/ VERBAL AND WRITTEN INSTRUCTIONS AND REPORTED UNDERSTANDING. PT A&OX4, VSS, AMB W/ ASSIST, ON 2L O2 NC, TOLERATING PO, VOIDING, AND PAIN MANAGED. HARD SCRIPT GIVEN. HOME MEDS AND BELONGINGS RETURNED. NOTIFIED DURING AM ROUND BY PT OF BRIGHT RED BLOOD IN TOILET THIS AM. PT TO FOLLOW UP OUTPATIENT AND PT DENIED ADDITIONAL BLOOD T/O SHIFT. PT ESCOURTED OUT VIA W/C BY SUE PIMENTEL TO THE PT ENTRANCE.
== END 2024-02-21 15:34 | disposition home health service (06) | DRG 175 ==
LOC: ER 21:27 → ERHOLD 21:28 → MEDS 02-13 09:32 → PCU 02-13 20:51 → MEDS 02-14 14:50 → PCU 02-17 20:19 → MEDS 02-18 16:56 → ENPENDDIS 02-21 11:52 → MEDS 02-21 15:34
PROVIDERS: Emergency Medicine; Family Medicine; Nurse Practitioner Acute Care; Student in an Organized Health Care Education/Training Program; ADMIT Internal Medicine
DX: I26.99 Other pulmonary embolism without acute cor pulmonale (principal); J18.9 Pneumonia, unspecified organism; J96.21 Acute and chronic respiratory failure with hypoxia; R65.11 Systemic inflammatory response syndrome (SIRS) of non-infectious origin with acute organ dysfunction; K92.1 Melena; K22.10 Ulcer of esophagus without bleeding; B37.81 Candidal esophagitis; J44.9 Chronic obstructive pulmonary disease, unspecified; E11.9 Type 2 diabetes mellitus without complications; I10 Essential (primary) hypertension; E66.9 Obesity, unspecified; E05.00 Thyrotoxicosis with diffuse goiter without thyrotoxic crisis or storm; J45.50 Severe persistent asthma, uncomplicated; Z99.81 Dependence on supplemental oxygen; Z79.4 Long term (current) use of insulin; Z79.84 Long term (current) use of oral hypoglycemic drugs; Z79.899 Other long term (current) drug therapy; Z79.51 Long term (current) use of inhaled steroids; Z79.01 Long term (current) use of anticoagulants; Z88.6 Allergy status to analgesic agent; Z88.1 Allergy status to other antibiotic agents; Z88.8 Allergy status to other drugs, medicaments and biological substances
CPT/HCPCS: 0241U; 36415; 70450; 71045; 71046; 71260; 80048; 80053; 82803; 82947; 83880; 84145; 85014; 85018; 85025; 87070; 87077; 87185; 87205; 94640; 94644; 94664; 94760; 94761; 94762; 96374-59; 96375; 96375-59; 96376; 97110; 97116; 97162; 97167; 97530; 99285-25; A9270; G0378; J0295; J1100; J1170; J1815; J1940; J2270; J2405; J2543; J3010; J7030; J7050; Q9967

== ENCOUNTER → 2024-03-14 | Outpatient (CLI) | payer OTHER ==
[~2024-03-14] MED LIST changes: +ALEVAZOL56.7 G1 TOP; +DECADRON4 M1 PO; +DILT120 PO; +DUPIXENT P300 MG/2 M SC; +FAMO20 PO; +HUMULIN N100 UNIT/6 SC; +LORA2 PO; +METF500C PO; +METFORMIN HCL500 M3 PO; +OLAN2.5 PO; +OLAN5 PO; +ONDA4ODT SL; +ZOLOFT50 MG PO; +[UNRECOGNIZED DRUG - CODE] PO
[2024-03-14 11:46] LABS: Albumin, Blood 3.6 g/dL (3.4-5.0); Anion Gap 13 mmol/L (3-11); Blood Urea Nitrogen 27 mg/dL (8-24); Bun/Creatinine Ratio 59.1 (12.0-20.0); CO2, Blood 25 mmol/L (21-32); Chloride, Blood 104 mmol/L (98-108); Creatinine, Blood 0.46 mg/dL (0.40-1.00); Glomerular Filtration Rate 134 (60-); Glucose, Blood 122 mg/dL (70-99); Phosphorus, Blood 3.1 mg/dL (2.5-4.9); Potassium, Blood 3.1 mmol/L (3.5-5.5); Sodium, Blood 139 mmol/L (136-145)
== END ==
LOC: LAB 10:05 → LAB SHORT 10:05
PROVIDERS: Internal Medicine
DX: R60.9 Edema, unspecified (principal)
CPT/HCPCS: 80069

== ENCOUNTER 2024-03-20 09:41 | Inpatient (IN) | payer OTHER ==
[~2024-03-20] VITALS: Ht 165.1 cm; Wt 97.5 kg
[~2024-03-20 09:41] MED LIST changes: -DECADRON4 M1 PO; -DILT120 PO; -LORA2 PO; -OLAN2.5 PO; -OLAN5 PO
[2024-03-20 10:14] LABS: Hematocrit 35.7 % (33.0-51.0); Hemoglobin 11.8 g/dL (11.5-16.0); Mean Corpuscular HGB 30.6 pg (26.0-34.0); Mean Corpuscular HGB Conc 33.1 g/dL (31.5-36.5); Mean Corpuscular Volume 93 fL (80-100); Mean Platelet Volume 8.8 fL (9.1-12.4); NRBC ABSOLUTE 0.03 K/mm3 (0.00-0.02); NRBC Auto 0.5 /100 WBC (0.0-0.2); Platelet Count 126 K/mm3 (150-400); RDW Coefficient Variation 16.1 % (11.7-14.2); RDW Standard Deviation 54.9 fL (35.1-46.3); Red Blood Cell Count 3.85 M/mm3 (3.80-5.20); White Blood Cell Count 5.74 K/mm3 (4.00-11.30)
[2024-03-20 10:35] LABS: BAND PERCENT MAN 5 % (0-8); BASOPHILS PERCENT MAN 0 % (0-2); EOSINOPHILS PERCENT MAN 0 % (0-6); LYMPHOCYTES ABSOLUTE MAN 1.43 K/mm3 (0.84-5.20); LYMPHOCYTES PERCENT MAN 25 % (21-46); METAMYELOCYTE ABSOLUTE MAN 0.05 K/mm3 (0.00-0.00); METAMYELOCYTE PERCENT MAN 1 % (0-0); MONOCYTES ABSOLUTE MAN 0.34 K/mm3 (0.16-1.47); MONOCYTES PERCENT MAN 6 % (4-13); MYELOCYTE ABSOLUTE MAN 0.17 K/mm3 (0.00-0.00); MYELOCYTE PERCENT MAN 3 % (0-0); NEUTROPHILS ABSOLUTE MAN 3.73 K/mm3 (1.96-9.15); SEG NEUTROPHILS PERCENT MAN 60 % (41-73); TOTAL CELLS COUNTED 100
[2024-03-20 10:39] LABS: PCO2 Arterial 37 mmHg (35-45); pH Blood Arterial 7.49 (7.35-7.45)
[2024-03-20 10:41] LABS: PO2 Arterial 106 mmHg (80-100)
[2024-03-20 11:08] LABS: Free Thyroxine 0.79 ng/dL (0.70-1.60)
[2024-03-20 11:09] LABS: Thyroid Stimulating Hormone 1.03 uIU/mL (0.360-4.800)
[2024-03-20 11:10] LABS: Albumin, Blood 3.5 g/dL (3.4-5.0); Albumin/Globulin Ratio 1.5 (0.8-1.8); Bilirubin, Total 0.5 mg/dL (0.1-1.0); Bun/Creatinine Ratio 26.1 (12.0-20.0); Calcium, Blood 8.2 mg/dL (8.5-10.1); Creatinine, Blood 0.57 mg/dL (0.40-1.00); Globulin, Blood 2.4 g/dL (2.2-4.0); Potassium, Blood 2.6 mmol/L (3.5-5.5); Total Protein, Blood 5.9 g/dL (6.4-8.2)
[2024-03-20 13:39] LABS: U Amphetamine Screen Not Detected; U Barbituate Screen Not Detected; U Benzodiazapine Screen Not Detected; U Buprenorphine Screen Not Detected; U Cannabinoids Screen Not Detected; U Cocaine Screen Not Detected; U Methadone Screen Not Detected; U Methamphetamine Screen Not Detected; U Opiates Screen Not Detected; U Oxycodone Screen Not Detected; U Phencyclidine Screen Not Detected
[2024-03-20] MEDS ORDERED: FLU VACC TS2024-25(6MOS UP)/PF 45 MCG/0.5 ML SYRINGE IM SCH (14:50)
[2024-03-20] MEDS ORDERED: Ondansetron HCl 2 MG / ML 2ML Vial IV PRN (14:50)
[2024-03-20] MEDS ORDERED: Mometasone Furoate Inhaler 220 mcg 14 ACT INH SCH (14:55)
[2024-03-20] MEDS ORDERED: Albuterol 2.5 MG/3 ML VIAL INH PRN (15:00)
[2024-03-20] MEDS ORDERED: Potassium Chloride 20 MEQ TabCR PO ONE (15:00)
[2024-03-20] MEDS ORDERED: Acetaminophen 325 MG TABLET PO PRN (15:00)
[2024-03-20] MEDS ORDERED: Albuterol 2.5 MG/3 ML VIAL INH SCH (15:20)
[2024-03-20] MEDS ORDERED: Insulin Regular 100 UNIT/ML 10ML Vial SC SCH (16:30)
[2024-03-20] MEDS ORDERED: Pantoprazole Sodium 40 MG Tab PO SCH (16:30)
[2024-03-20] MEDS ORDERED: dexAMETHasone 4 MG TAB PO SCH (17:00)
[2024-03-20] MEDS ORDERED: OLANZapine 10 MG Vial IM PRN (17:20)
[2024-03-20 20:16] VITALS: BP 150/104
[2024-03-20] MEDS ORDERED: Famotidine 20 MG Tab PO SCH (21:00)
[2024-03-20] MEDS ORDERED: Apixaban 5 MG Tab PO SCH (21:00)
[2024-03-20] MEDS ORDERED: Montelukast Sodium 10 MG Tab PO SCH (21:00)
[2024-03-20] MEDS ORDERED: Sertraline HCl 50 MG Tab PO SCH (21:00)
[2024-03-20] MEDS ORDERED: Gabapentin 300 MG Cap PO SCH (21:00)
[2024-03-20] MEDS ORDERED: Insulin NPH 100 Unit / ML 10ML Vial SC SCH (21:00)
[2024-03-20] MEDS ORDERED: Loratadine 10 MG Tab PO SCH (21:00)
--- NOTE | 2024-03-21 04:16 | NUR ---
SHIFT SUMMARY 28 YR F ADMITTED ON 03/20/24. FULL CODE. PT IS ABLE TO ANSWER ALL QUESTIONS APPROPRIATELY, BUT HAS MOMENTS WHEN SHE IS VERY CONFUSED. SHE IS CONTINENT AND IS ABLE TO AMBULATE TO THE BATHROOM WITH SBA.SHE HAS ASKED MULTIPLE TIMES ABOUT WHEN SHE WILL GET HER MEDS AND ABOUT MAKING SURE THE DOC COMES TO SEE HER THIS MORNING. SHE HAS TO BE REPEATEDY REASSURED THAT SHE WILL GET HER MEDS. SHE WAS SET UP WITH A CPAP BY RT SHE WEARS ONE AT HOME. PT HAD BLOOD IN THE TOILET AFTER HAVING A BM THIS SHIFT. SHE STATED TO THIS NURSE THAT SHE MAY BE MENSTRUATING. SHE WAS GIVEN A FEMININE PAD. PT JUST HAD ANOTHER BM AND AGAIN THERE WAS BLOOD IN THE TOILET. WILL CHECK CLOSER FOR THE SOURCE OF THE BLOOD.
[2024-03-21 04:42] VITALS: BP 142/107
--- NOTE | 2024-03-21 05:03 | NUR ---
PT HAS HAD TWO BLOODY BM'S THIS SHIFT. HOSPITALIST WAS NOTIFIED AND WANTS TO CHECK CBC MORNING LABS. WILL CONTINUE TO MONITOR.
[2024-03-21 06:22] LABS: Hematocrit 33.9 % (33.0-51.0); Hemoglobin 11.2 g/dL (11.5-16.0); Mean Corpuscular Volume 91 fL (80-100); Mean Platelet Volume 8.9 fL (9.1-12.4); NRBC ABSOLUTE 0.02 K/mm3 (0.00-0.02); NRBC Auto 0.4 /100 WBC (0.0-0.2); Platelet Count 122 K/mm3 (150-400); RDW Coefficient Variation 16.4 % (11.7-14.2); Red Blood Cell Count 3.73 M/mm3 (3.80-5.20); White Blood Cell Count 4.93 K/mm3 (4.00-11.30)
[2024-03-21 06:52] LABS: Magnesium, Blood 2.3 mg/dL (1.6-2.4)
[2024-03-21 07:07] LABS: Albumin, Blood 3.3 g/dL (3.4-5.0); Albumin/Globulin Ratio 1.5 (0.8-1.8); Bilirubin, Total 0.5 mg/dL (0.1-1.0); Bun/Creatinine Ratio 16.6 (12.0-20.0); Calcium, Blood 8.1 mg/dL (8.5-10.1); Creatinine, Blood 0.48 mg/dL (0.40-1.00); Globulin, Blood 2.2 g/dL (2.2-4.0); Potassium, Blood 2.4 mmol/L (3.5-5.5); Total Protein, Blood 5.5 g/dL (6.4-8.2)
[2024-03-21 07:32] VITALS: BP 155/111
[2024-03-21] MEDS ORDERED: Potassium Chloride 20 MEQ TabCR PO ONE (07:40)
[2024-03-21 08:25] LABS: BASOPHILS PERCENT MAN 0 % (0-2); EOSINOPHILS PERCENT MAN 0 % (0-6); LYMPHOCYTES ABSOLUTE MAN 1.47 K/mm3 (0.84-5.20); LYMPHOCYTES PERCENT MAN 30 % (21-46); METAMYELOCYTE ABSOLUTE MAN 0.14 K/mm3 (0.00-0.00); METAMYELOCYTE PERCENT MAN 3 % (0-0); MONOCYTES ABSOLUTE MAN 0.34 K/mm3 (0.16-1.47); MONOCYTES PERCENT MAN 7 % (4-13); MYELOCYTE ABSOLUTE MAN 0.14 K/mm3 (0.00-0.00); MYELOCYTE PERCENT MAN 3 % (0-0); NEUTROPHILS ABSOLUTE MAN 2.81 K/mm3 (1.96-9.15); SEG NEUTROPHILS PERCENT MAN 57 % (41-73); TOTAL CELLS COUNTED 100
[2024-03-21] MEDS ORDERED: AmLODIPine Besylate 5 MG Tab PO SCH (09:00)
[2024-03-21] MEDS ORDERED: Fluticasone 0.05% Nasal Spray SCH (09:00)
[2024-03-21] MEDS ORDERED: Atenolol 50 MG Tab PO SCH (09:00)
[2024-03-21] MEDS ORDERED: Insulin NPH 10 Unit/0.1ML (Single Dose) SC ONE (10:40)
[2024-03-21] MEDS ORDERED: PRED20 PO (14:30)
[2024-03-21] MEDS ORDERED: LORazepam 2 MG/ML 1ML Injection IV PRN (16:50)
--- NOTE | 2024-03-21 17:24 | NUR ---
ALESSIAY- PT A/O TO SELF, PLACE, DELUSIONAL AND EXHIBITING MANIC BEHAVIOR. FORGETS LIMIT, FREQ SETS OFF BED ALARM. STEADY ON FEET WITH SBA AND WALKER. DRINKING LG AMOUNTS OF WATER AND PERSEVERATES ON HAVING ENOUGH ICE WATER. TOLERATING SOLID FOOD. PT WORRIED ABOUT HER KIDS. STATES SHE DOESN'T WANT KIDS WITH HER . PT BECAME MORE AND MORE AGGITATED T/O THS SHIFT, CALLED 911 STATING HER WAS TRYING TO KILL THE KIDS. CALL TO DR BARBER TO NITIFY OF ESCALATING BEHAVIOR, ATIVAN ORDERED AND ADMINISTERED. PT IMMEDIATELY CALMED, PLACED HER ON CPAP, CONT PULSE OX. CALL TO DR BURKETT (PSYCH) WHO DID NOT KNOW ABOUT CONSULT, BUT STATES HE WOULD COME EVAL PT IN THE AM. THOUGHT ATIVAN AND ZYPREXA A GOOD PRN FOR THIS PT ON HIGH DOSE STEROIDS FOR NOW. WILL REPORT TO NOC RN
[2024-03-21 18:37] VITALS: BP 132/89
[2024-03-21 19:17] VITALS: BP 142/95
[2024-03-22 03:46] VITALS: BP 141/95
--- NOTE | 2024-03-22 04:41 | NUR ---
PATIENT IS A&OX 2 WITH CONFUSION-PATIENT FORGOT SHE WAS AT THE HOSPITAL. PATIENT REPORIENTED. PATIENT ASKED ABOUT HER KIDS-KIDS ARE WITH HER MOM AND SAFE. REASSURED PATIENT THAT SHE IS SAFE AT THE HOSPITAL. PATIENT HAVING ANXIETY-PATIENT MEDICATED WITH PRN ATIVAN. PATIENT WORRIED THAT SHE MIGHT HAVE HER PERIOD BUT IS NOT BLEEDING AND THEN PATIENT REPORTED SHE DOES NOT REMEMBER WHEN SHE HAD HER LAST PERIOD AND IS WORRIED THAT SHE MIGHT BE . HOSPITALIST CONTACTED AND ORDERED FOR A URINE TEST-TEST WAS NEGATIVE. BED IS LOCKED IN THE LOWEST POSITION WITH CALL LIGHT IN REACH. CARE IS ONGOING.
[2024-03-22 05:49] LABS: Bun/Creatinine Ratio 21.5 (12.0-20.0); Calcium, Blood 8.5 mg/dL (8.5-10.1); Creatinine, Blood 0.42 mg/dL (0.40-1.00); Potassium, Blood 3.6 mmol/L (3.5-5.5)
[2024-03-22 07:27] VITALS: BP 156/112
[2024-03-22] MEDS ORDERED: Diltiazem HCl 180 MG Cap.CD PO SCH (09:00)
[2024-03-22 10:25] VITALS: BP 164/106
[2024-03-22 10:43] VITALS: BP 164/106
--- NOTE | 2024-03-22 10:51 | NUR ---
ATTEMPTED TO NOTIFY FAMILY MEMBER YASMINE TO REPORT PT FALL. PER VOLODYMYR DO NOT CALL SPOUSE.
[2024-03-22 16:54] VITALS: BP 151/98
--- NOTE | 2024-03-22 18:09 | NUR ---
SHIFT SUMMARY: PT AOX4 BUT VERY CONFUSED AND MENTAL STATUS WAXING AND WANING. STARTING THE DAY WITH DELUSIONS SAYING THAT HER WAS TRYING TO POISON HER AND HER KIDS. REASSURED WITH TOX SCREEN RESULTS AND CALLING HER MOTHER THAT HER KIDS WERE OKAY. CONTINUED TO ASK AND EXPRESS THAT THEY WERE POISONED INTERMITTENTLY THROUGHOUT THE DAY. PT HAD A FALL WHILE ATTEMPTING TO BRUSH HER TEETH IN THE BATHROOM. NO WOUNDS OR BRUISED NOTED, SEE NOTE FOR DETAILS. PROVIDER AND FAMILY NOTIFIED. PT STILL VERY CONFUSED AND ANXIOUS AT POINTS CHANTING "ME AND MY CHILDREN ARE SAFE". PT REGULARLY ASKING THE SAME QUESTIONS AND REQUESTING THINGS THAT HAVE ALREADY HAPPENED. WILL CONTINIOUSLY CALL OR YELL OUT INTO THE HALLWAY. AT THE END OF THE DAY, STARTED ENDORSING VISIBILE AND AUDIBLE HALLUCINATIONS, STATING THAT PEOPLE WERE CHATTING AND JOKING IN HER ROOM. MOOD VARYING FROM HOUR TO HOUR. PT IS RESTING IN BED WITH BED IN LOWEST POSITION AND BED ALARM ON. CALL LIGHT IN REACH. CONTINUING CARE.
[2024-03-22 19:17] VITALS: BP 149/96
[2024-03-22] MEDS ORDERED: LORazepam 2 MG Tab PO SCH (21:00)
[2024-03-23] MEDS ORDERED: Albuterol 2.5 MG/3 ML VIAL INH SCH (00:23)
[2024-03-23 03:40] VITALS: BP 144/102
--- NOTE | 2024-03-23 06:11 | NUR ---
SUMMARY: PT'S MENTATION CONT'S TO FLUCTUATE. SHE'S A/OX4 AT TIMES BUT CAN ALSO BECOME CONFUSED, FORGETFUL, ANXIOUS AND HAVE PARANOID DELUSIONS. PT IS ABLE TO SPECIFY NEEDS AND USE CALL LIGHT APPROPRIATELY BUT OCC.FIXATES ON CERTAIN THINGS OR IDEATIONS AND REPEATS QUESTIONS OR REQUESTS. SHE HASN'T APPEARED TO HALLUCINATE TONIGHT BUT HAS SLEPT MAJORITY OF SHIFT OUTSIDE OF CARE NEEDS. SHE'S UP W/1PA AND FWW TO TOILET/BSC AND REPORTED AN EPISODE OF DIZZINESS W/AMBULATION THAT RESOLVED AT REST. VSS REMAINED STABLE DURING EVENT AND T/O NOCTE. SPO2 IS WNL ON 2L O2 VIA NC AND TOLERATED CPAP W/CONT BIOX INTACT. TYLENOL RECEIVED FOR TOLERABLE RELIEF OF PAIN. NO ACUTE CHANGES, VSS/AFEBRILE. WCTM AND REPORT TO DAY RN.
[2024-03-23 06:32] LABS: Bun/Creatinine Ratio 19.4 (12.0-20.0); Calcium, Blood 8.4 mg/dL (8.5-10.1); Creatinine, Blood 0.46 mg/dL (0.40-1.00); Magnesium, Blood 2.4 mg/dL (1.6-2.4); Potassium, Blood 3.8 mmol/L (3.5-5.5)
[2024-03-23 07:25] VITALS: BP 161/102
[2024-03-23] MEDS ORDERED: QUEtiapine Fumarate 50 MG TAB PO PRN (14:20)
[2024-03-23 17:08] VITALS: BP 158/115
--- NOTE | 2024-03-23 17:48 | NUR ---
SHIFT SUMMARY PT AOX3/4, SEMI COOPERATIVE WITH PROCEDURES, USES CALL LIGHT APPROPRIATELY. PT AMBULATED IN HALLWAYS WITHOUT INCIDENCE. PT WAS FOCUSED ON DC TODAY BUT MD DECIDE TO KEEP AT LEAST 1 MORE NIGHT. AFTER APPROXIMATELY 1400, PT STARTED HAVING BEHAVIOURAL EPISODES, THROWING ITEMS ACROSS THE ROOM. WHEN ASSESSED, PT DID NOT SEEM DISTRAUGHT BUT RATHER CALM. DURING MEDICATIONS, PT CONSISTENTLY ASKED TO DOUBLE CHECK ORDERS AND ONCE ASKED THIS RN TO VERIFY SHE NEEDED THE MEDS WITH THE PULSE OX MACHINE. REPEATEDLY TALKING ABOUT HOW SHE IS . AT ABOUT 1700, PT FAMILY CALLED THIS RN FOR AN UPDATE ABOUT PT STATUS/PLAN. THIS RN TALKED WITH FAMILY FOR ABOUT 5 MINUTES UNTIL PT TOLD REKHA RN TO "TO HIM TO STOP TALKING TO MY FAMILY". REKHA RELAYED STATEMENT, THIS RN INFORMED FAMILY WHAT PT SAID AND THIS RN HUNG UP THE PHONE. PT IS CURRENTLY IN BED ENJOYING DINNER. BED IN LOWEST POSITION, CALL LIGHT WITHIN REACH.
[2024-03-23 20:08] VITALS: BP 145/92
[2024-03-23] MEDS ORDERED: Insulin NPH 100 Unit / ML 10ML Vial SC SCH (21:00)
--- NOTE | 2024-03-23 23:08 | NUR ---
ORIENTING NURSE NOTE REVIEWED ASSESSMENT AND AGREE WITH FINDINGS/CHARTING OF RN ORIENTEE.
--- NOTE | 2024-03-24 04:18 | NUR ---
A&Ox4 this shift, vss, slow to respond but answering all questions appropiately, cooperative w/assessment, no behaviors noted this shift, slept t/o shift, sleepng at this time w/call light in reach & bed alarm active, will cont to monitor until report given to oncoming nurse.
[2024-03-24 05:32] VITALS: BP 148/97
[2024-03-24 05:49] LABS: Hematocrit 32.4 % (33.0-51.0); Hemoglobin 10.5 g/dL (11.5-16.0); Mean Corpuscular HGB 30.1 pg (26.0-34.0); Mean Corpuscular HGB Conc 32.4 g/dL (31.5-36.5); Mean Corpuscular Volume 93 fL (80-100); Mean Platelet Volume 9.1 fL (9.1-12.4); NRBC ABSOLUTE 0.02 K/mm3 (0.00-0.02); NRBC Auto 0.5 /100 WBC (0.0-0.2); Platelet Count 124 K/mm3 (150-400); RDW Coefficient Variation 15.9 % (11.7-14.2); RDW Standard Deviation 54.4 fL (35.1-46.3); Red Blood Cell Count 3.49 M/mm3 (3.80-5.20); White Blood Cell Count 4.33 K/mm3 (4.00-11.30)
[2024-03-24 06:09] LABS: Albumin, Blood 3.2 g/dL (3.4-5.0); Albumin/Globulin Ratio 1.2 (0.8-1.8); Bilirubin, Total 0.4 mg/dL (0.1-1.0); Bun/Creatinine Ratio 26.4 (12.0-20.0); Calcium, Blood 8.8 mg/dL (8.5-10.1); Creatinine, Blood 0.53 mg/dL (0.40-1.00); Globulin, Blood 2.6 g/dL (2.2-4.0); Magnesium, Blood 2.5 mg/dL (1.6-2.4); Potassium, Blood 3.9 mmol/L (3.5-5.5); Total Protein, Blood 5.8 g/dL (6.4-8.2)
[2024-03-24 06:15] LABS: BAND PERCENT MAN 9 % (0-8); BASOPHILS PERCENT MAN 0 % (0-2); EOSINOPHILS PERCENT MAN 0 % (0-6); LYMPHOCYTES ABSOLUTE MAN 0.38 K/mm3 (0.84-5.20); LYMPHOCYTES PERCENT MAN 9 % (21-46); MONOCYTES ABSOLUTE MAN 0.21 K/mm3 (0.16-1.47); MONOCYTES PERCENT MAN 5 % (4-13); MYELOCYTE ABSOLUTE MAN 0.08 K/mm3 (0.00-0.00); MYELOCYTE PERCENT MAN 2 % (0-0); NEUTROPHILS ABSOLUTE MAN 3.63 K/mm3 (1.96-9.15); SEG NEUTROPHILS PERCENT MAN 75 % (41-73); TOTAL CELLS COUNTED 100
[2024-03-24 07:59] VITALS: BP 141/106
--- NOTE | 2024-03-24 12:01 | NUR ---
RETURNED FROM LUNCH TO BE INFORMED THAT PT HAD AN AGGRESSIVE EPISODE WHERE SHE ENTERED INTO ANOTHER PT ROOM. THIS RN INFORMED MD ABOUT EVENT AND THE NEED FOR ANOTHER ORDER FOR IM ZYPREXA WITH AN INCREASE IN DOSE.
[2024-03-24] MEDS ORDERED: OLANZapine 10 MG Vial IM PRN (12:10)
--- NOTE | 2024-03-24 16:43 | NUR ---
SHIFT SUMMARY PT AOX3/4 TODAY, COOPERATIVE WITH CARE, ABLE TO MAKE NEEDS KNOWN. PT SEEMED EXTRA HUNGRY TODAY, GAVE SNACKS AND MANAGED BLOOD SUGAR APPROPRIATELY. PT FOCUSED ON TODAY DESPITE MULTIPLE REINFORCEMENT THAT SHE IS NOT . ALSO FOCUSED ON FAMILY VISITING, REINFORCING FAMILY IS NOT HERE AND THAT THE PT CAN CALL THEM WHENEVER SHE WANTS. PT DID HAVE AGGRESSIVE EPISODE REPORTED BY THE GOVERNMENT AFFAIRS RESEARCHER, THIS RN CONTACTED MD TO GET ORDER FOR ZYPREXA IM FOR PT. MEDICATED WITH ZYPREXA AND FELL ASLEEP AFTERWARDS. WALKED IN HALLWAY. NO OTHER ACUTE CHANGES THIS SHIFT. BED IN LOWEST POSITION CALL LIGHT WITHIN REACH. USING O2 VIA NC APPROPRIATE.
[2024-03-24 17:09] VITALS: BP 151/95
[2024-03-24 20:37] VITALS: BP 123/74
[2024-03-24] MEDS ORDERED: Insulin NPH 100 Unit / ML 10ML Vial SC SCH (21:00)
[2024-03-25 04:05] VITALS: BP 158/95
--- NOTE | 2024-03-25 04:16 | NUR ---
TELEPHONE TECHNICIAN SUMMARY No acute changes. Pt cooperative with care. Slept well t/o the shift. Regular interval rounding complete to assess and meet needs. Bed alarm in place. Call light in reach. Providing pt with continued education for blood sugar managment and reorientation to hospital stay as needed. Pt continues to assert she is . TC until report given to oncoming nurse.
[2024-03-25] MEDS ORDERED: Ondansetron 4 MG SoluTab SL PRN (05:30)
[2024-03-25 05:43] LABS: Hematocrit 32.3 % (33.0-51.0); Hemoglobin 10.6 g/dL (11.5-16.0); Mean Corpuscular HGB 31.2 pg (26.0-34.0); Mean Corpuscular HGB Conc 32.8 g/dL (31.5-36.5); Mean Corpuscular Volume 95 fL (80-100); Mean Platelet Volume 9.9 fL (9.1-12.4); NRBC ABSOLUTE 0.04 K/mm3 (0.00-0.02); NRBC Auto 0.8 /100 WBC (0.0-0.2); Platelet Count 137 K/mm3 (150-400); RDW Standard Deviation 55.8 fL (35.1-46.3); White Blood Cell Count 4.82 K/mm3 (4.00-11.30)
[2024-03-25 06:13] LABS: Albumin, Blood 3.3 g/dL (3.4-5.0); Albumin/Globulin Ratio 1.3 (0.8-1.8); Bilirubin, Total 0.4 mg/dL (0.1-1.0); Bun/Creatinine Ratio 38.7 (12.0-20.0); Calcium, Blood 8.9 mg/dL (8.5-10.1); Creatinine, Blood 0.52 mg/dL (0.40-1.00); Globulin, Blood 2.5 g/dL (2.2-4.0); Magnesium, Blood 2.3 mg/dL (1.6-2.4); Potassium, Blood 4.1 mmol/L (3.5-5.5); Total Protein, Blood 5.8 g/dL (6.4-8.2)
[2024-03-25 07:01] LABS: BAND PERCENT MAN 6 % (0-8); BASOPHILS PERCENT MAN 0 % (0-2); EOSINOPHILS PERCENT MAN 0 % (0-6); LYMPHOCYTES ABSOLUTE MAN 0.28 K/mm3 (0.84-5.20); LYMPHOCYTES PERCENT MAN 6 % (21-46); MONOCYTES ABSOLUTE MAN 0.48 K/mm3 (0.16-1.47); MONOCYTES PERCENT MAN 10 % (4-13); MYELOCYTE ABSOLUTE MAN 0.04 K/mm3 (0.00-0.00); MYELOCYTE PERCENT MAN 1 % (0-0); SEG NEUTROPHILS PERCENT MAN 77 % (41-73); TOTAL CELLS COUNTED 100
[2024-03-25 07:24] VITALS: BP 153/113
--- NOTE | 2024-03-25 13:01 | NUR ---
PT WAS AMUBLATING THE ODEN WITH REKHA CROSS, WENT TO DOUBLE DOORS EXITING SCU AND WAS PUSING AGAINST THE DOORS ATTEMPTING TO OPEN THEM. THIS RN MEDICATED ZYPREXA IM 5MG PER EMAR.
[2024-03-25 15:13] VITALS: BP 152/107
--- NOTE | 2024-03-25 17:35 | NUR ---
SHIFT SUMMARY PT AOX2/3, COOPERATIVE, ABLE TO MAKE NEEDS KNOWN. EARLY SHIFT PT WAS CALM AND COOPERATIVE. AFTERNOON PT BECAME IRRITABLE, PUSHING AGAINST DOUBLE DOORS, MEDICATED PER EMAR. AT APPROXIMATELY 1630, PT WALKING HALLWAY BECAME RESTLESS AND PARANOID ABOUT HER KIDS BEING "IN OTHER ROOMS AND SHE HAS TO SEE THEM". SHE ATTEMPTED TO ENTER OTHER PT ROOMS BUT WAS STOPPED BY THIS RN AND REKHA RN. PT IS NOW IN BED TALKING WITH REKHA RN. STILL TALKING ABOUT . BED IN LOWEST POSITION, CALL LIGHT WITHIN REACH.
[2024-03-25 20:01] VITALS: BP 127/79
[2024-03-25] MEDS ORDERED: Insulin NPH 100 Unit / ML 10ML Vial SC SCH (21:00)
--- NOTE | 2024-03-26 05:26 | NUR ---
SENIOR INSTRUCTOR SUMMARY PT IS A/OX4 WITH FORGETFULNESS AND INTERMITTANT CONFUSION. NO ACUTE CHANGES. PT CONTINUES TO HAVE DELLUSIONS OF . PT HAS BEEN PLEASANT AND COOPERATIVE WITH CARE THIS SHIFT. PT SLEPT WELL T/O THE SHIFT. ABLE TO MAKE NEEDS KNOWN. CALL LIGHT ACCESSIBLE. BED ALARM IN PLACE.
[2024-03-26 06:01] VITALS: BP 139/86
[2024-03-26 07:23] VITALS: BP 148/102
[2024-03-26] MEDS ORDERED: Loratadine 10 MG Tab PO SCH (09:00)
[2024-03-26] MEDS ORDERED: dilTIAZem HCL 240 MG CAP.CD PO SCH (09:00)
[2024-03-26] MEDS ORDERED: OLANZapine 5 MG Tab PO PRN (11:25)
[2024-03-26 15:27] VITALS: BP 141/96
[2024-03-26] MEDS ORDERED: LORA10ER PO (16:03)
[2024-03-26] MEDS ORDERED: DECADRON4 M1 PO ×2 (16:08)
[2024-03-26] MEDS ORDERED: PROP50 PO ×2 (16:09)
[2024-03-26] MEDS ORDERED: DILT120 PO ×2 (16:10)
[2024-03-26] MEDS ORDERED: LORA2 PO ×2 (16:11)
[2024-03-26] MEDS ORDERED: OLAN2.5 PO ×2 (16:12)
[2024-03-26] MEDS ORDERED: OLAN5 PO ×2 (16:13)
[2024-03-26] MEDS ORDERED: ALBU90OI INH (16:14)
--- NOTE | 2024-03-26 18:05 | NUR ---
DISCHARGE REVIEWED WITH PT AND SISTER AND MEDICAL PRACTICE ADMINISTRATOR FROM [facility]. NO IV, NO TELE. HARDSCRIPT HANDED TO MEDICAL PRACTICE ADMINISTRATOR. PERSONAL MEDS GIVEN TO FAMILY AND MEDICAL PRACTICE ADMINISTRATOR. PT DRESSED. WHEELED TO DOOR BY AIDE/.
== END 2024-03-26 17:40 | disposition home or self-care (01) | DRG 92 ==
LOC: ER 09:41 → MEDS 14:47
PROVIDERS: Emergency Medicine; Student in an Organized Health Care Education/Training Program; ADMIT Internal Medicine
DX: G92.8 Other toxic encephalopathy (principal); E24.2 Drug-induced Cushing's syndrome; F05 Delirium due to known physiological condition; E11.42 Type 2 diabetes mellitus with diabetic polyneuropathy; F41.8 Other specified anxiety disorders; I10 Essential (primary) hypertension; E87.6 Hypokalemia; F15.959 Other stimulant use, unspecified with stimulant-induced psychotic disorder, unspecified; E05.00 Thyrotoxicosis with diffuse goiter without thyrotoxic crisis or storm; D69.6 Thrombocytopenia, unspecified; E66.01 Morbid (severe) obesity due to excess calories; F20.9 Schizophrenia, unspecified; T38.0X5A Adverse effect of glucocorticoids and synthetic analogues, initial encounter; Z86.718 Personal history of other venous thrombosis and embolism; Z90.49 Acquired absence of other specified parts of digestive tract; Z88.1 Allergy status to other antibiotic agents; Z91.018 Allergy to other foods; Z88.8 Allergy status to other drugs, medicaments and biological substances; Z88.6 Allergy status to analgesic agent; Z79.01 Long term (current) use of anticoagulants; Z87.19 Personal history of other diseases of the digestive system; Z86.711 Personal history of pulmonary embolism; Z90.89 Acquired absence of other organs; Z68.35 Body mass index [BMI] 35.0-35.9, adult
CPT/HCPCS: 36415; 36600; 70450; 71045; 80048; 80053; 81025; 82803; 82947; 83735; 84132; 84439; 84443; 85025; 93005; 93010; 94640; 94660; 94664; 94762; 97110; 97116; 97162; 97165; 97535; 99285-25; A9270; G0378; J1815; J2060; J2405

== ENCOUNTER 2024-04-01 16:59 | Emergency (ER) | payer OTHER ==
[~2024-04-01] VITALS: Ht 162.6 cm; Wt 99.3 kg
[~2024-04-01 16:59] MED LIST changes: +DECADRON4 M1 PO; +DILT120 PO; +LORA2 PO; +OLAN2.5 PO; +OLAN5 PO
[2024-04-01 17:06] VITALS: BP 184/101
[2024-04-01] MEDS ORDERED: OLAN2.5 PO (17:13)
== END 2024-04-01 17:15 | disposition home or self-care (01) ==
LOC: ER 16:59
DX: Z76.0 Encounter for issue of repeat prescription (principal); F41.9 Anxiety disorder, unspecified; E11.9 Type 2 diabetes mellitus without complications; I10 Essential (primary) hypertension
CPT/HCPCS: 99281

== ENCOUNTER 2024-04-12 08:38 | Emergency (ER) | payer OTHER ==
[~2024-04-12] VITALS: Ht 162.6 cm; Wt 99.8 kg
[2024-04-12 08:56] VITALS: BP 153/108
[2024-04-12 10:07] LABS: Hematocrit 37.2 % (33.0-51.0); Mean Corpuscular HGB 30.1 pg (26.0-34.0); Mean Corpuscular HGB Conc 32.3 g/dL (31.5-36.5); Mean Corpuscular Volume 93 fL (80-100); Mean Platelet Volume 9.8 fL (9.1-12.4); NRBC ABSOLUTE 0.03 K/mm3 (0.00-0.02); NRBC Auto 0.4 /100 WBC (0.0-0.2); Platelet Count 178 K/mm3 (150-400); RDW Coefficient Variation 15.7 % (11.7-14.2); RDW Standard Deviation 53.3 fL (35.1-46.3); Red Blood Cell Count 3.99 M/mm3 (3.80-5.20); White Blood Cell Count 7.63 K/mm3 (4.00-11.30)
[2024-04-12 10:27] LABS: Albumin, Blood 3.3 g/dL (3.4-5.0); Albumin/Globulin Ratio 1.1 (0.8-1.8); Bilirubin, Total 0.6 mg/dL (0.1-1.0); Bun/Creatinine Ratio 54.2 (12.0-20.0); Calcium, Blood 9.1 mg/dL (8.5-10.1); Creatinine, Blood 0.52 mg/dL (0.40-1.00); Potassium, Blood 3.1 mmol/L (3.5-5.5); Total Protein, Blood 6.3 g/dL (6.4-8.2)
[2024-04-12] MEDS ORDERED: Potassium Chloride 10 Meq Tablet SA PO ONE (11:40)
[2024-04-12 11:44] LABS: BAND PERCENT MAN 7 % (0-8); BASOPHILS PERCENT MAN 0 % (0-2); EOSINOPHILS ABSOLUTE MAN 0.07 K/mm3 (0.00-0.68); EOSINOPHILS PERCENT MAN 1 % (0-6); LYMPHOCYTES ABSOLUTE MAN 0.76 K/mm3 (0.84-5.20); LYMPHOCYTES PERCENT MAN 10 % (21-46); METAMYELOCYTE ABSOLUTE MAN 0.15 K/mm3 (0.00-0.00); METAMYELOCYTE PERCENT MAN 2 % (0-0); MONOCYTES ABSOLUTE MAN 0.53 K/mm3 (0.16-1.47); MONOCYTES PERCENT MAN 7 % (4-13); MYELOCYTE ABSOLUTE MAN 0.15 K/mm3 (0.00-0.00); MYELOCYTE PERCENT MAN 2 % (0-0); NEUTROPHILS ABSOLUTE MAN 5.95 K/mm3 (1.96-9.15); SEG NEUTROPHILS PERCENT MAN 71 % (41-73); TOTAL CELLS COUNTED 100
== END 2024-04-12 13:54 | disposition home or self-care (01) ==
LOC: ER 08:38
PROVIDERS: Emergency Medicine
DX: R45.851 Suicidal ideations (principal); F19.921 Other psychoactive substance use, unspecified with intoxication with delirium; E87.6 Hypokalemia; J44.9 Chronic obstructive pulmonary disease, unspecified; E11.9 Type 2 diabetes mellitus without complications; I10 Essential (primary) hypertension; Z79.899 Other long term (current) drug therapy; Z79.4 Long term (current) use of insulin; Z88.6 Allergy status to analgesic agent; Z88.1 Allergy status to other antibiotic agents; Z91.040 Latex allergy status; Z88.8 Allergy status to other drugs, medicaments and biological substances
CPT/HCPCS: 80053; 82947; 85025; 99285; A9270

== ENCOUNTER → 2024-06-07 | Outpatient (CLI) | payer OTHER ==
[~2024-06-07] MED LIST changes: +ABILIFY MYCITE10 M2 PO; +METF500
[2024-06-07 19:06] LABS: BASOPHILS ABSOLUTE AUTO 0.03 K/mm3 (0.00-0.23); BASOPHILS PERCENT AUTO 1 % (0-2); EOSINOPHILS PERCENT AUTO 0 % (0-6); Hematocrit 35.7 % (33.0-51.0); Hemoglobin 11.3 g/dL (11.5-16.0); IMMATURE GRAN ABSOLUTE AUTO 0.05 K/mm3 (0.00-0.10); IMMATURE GRAN PERCENT AUTO 1 % (0-1); LYMPHOCYTES ABSOLUTE AUTO 0.76 K/mm3 (0.84-5.20); LYMPHOCYTES PERCENT AUTO 12 % (21-46); MONOCYTES ABSOLUTE AUTO 0.57 K/mm3 (0.16-1.47); MONOCYTES PERCENT AUTO 9 % (4-13); Mean Corpuscular HGB 26.3 pg (26.0-34.0); Mean Corpuscular HGB Conc 31.7 g/dL (31.5-36.5); Mean Corpuscular Volume 83 fL (80-100); Mean Platelet Volume 10.2 fL (9.1-12.4); NEUTROPHILS ABSOLUTE AUTO 4.84 K/mm3 (1.96-9.15); NEUTROPHILS PERCENT AUTO 77 % (41-73); Platelet Count 230 K/mm3 (150-400); RDW Coefficient Variation 14.7 % (11.7-14.2); RDW Standard Deviation 44.4 fL (35.1-46.3); White Blood Cell Count 6.25 K/mm3 (4.00-11.30)
[2024-06-07 19:07] LABS: International Normalized Ratio 0.99; Prothrombin Time Results 10.6 Sec (9.7-11.5)
== END ==
LOC: LAB 17:34 → LAB SHORT 17:34
PROVIDERS: Internal Medicine
DX: K22.11 Ulcer of esophagus with bleeding (principal)
CPT/HCPCS: 85025; 85610

== ENCOUNTER 2024-06-10 08:33 | Emergency (ER) | payer OTHER ==
[~2024-06-10] VITALS: Ht 167.6 cm; Wt 99.8 kg
[~2024-06-10 08:33] MED LIST changes: -ABILIFY MYCITE10 M2 PO; -METF500
[2024-06-10] MEDS ORDERED: Ipratropium/Albuterol SulF 2.5-0.5MG/3 ML Amp INH PRN (09:25)
[2024-06-10 09:36] LABS: BASOPHILS ABSOLUTE AUTO 0.01 K/mm3 (0.00-0.23); BASOPHILS PERCENT AUTO 0 % (0-2); EOSINOPHILS PERCENT AUTO 0 % (0-6); Hematocrit 35.1 % (33.0-51.0); Hemoglobin 11.2 g/dL (11.5-16.0); IMMATURE GRAN ABSOLUTE AUTO 0.04 K/mm3 (0.00-0.10); IMMATURE GRAN PERCENT AUTO 1 % (0-1); LYMPHOCYTES ABSOLUTE AUTO 0.39 K/mm3 (0.84-5.20); LYMPHOCYTES PERCENT AUTO 7 % (21-46); MONOCYTES ABSOLUTE AUTO 0.27 K/mm3 (0.16-1.47); MONOCYTES PERCENT AUTO 5 % (4-13); Mean Corpuscular HGB 26.3 pg (26.0-34.0); Mean Corpuscular HGB Conc 31.9 g/dL (31.5-36.5); Mean Corpuscular Volume 82 fL (80-100); NEUTROPHILS ABSOLUTE AUTO 4.74 K/mm3 (1.96-9.15); NEUTROPHILS PERCENT AUTO 87 % (41-73); Platelet Count 221 K/mm3 (150-400); RDW Coefficient Variation 14.3 % (11.7-14.2); RDW Standard Deviation 42.5 fL (35.1-46.3); Red Blood Cell Count 4.26 M/mm3 (3.80-5.20); White Blood Cell Count 5.45 K/mm3 (4.00-11.30)
[2024-06-10 09:55] LABS: Albumin, Blood 3.6 g/dL (3.4-5.0); Albumin/Globulin Ratio 1.1 (0.8-1.8); Bilirubin, Total 0.4 mg/dL (0.1-1.0); Bun/Creatinine Ratio 3.9 (12.0-20.0); Calcium, Blood 9.4 mg/dL (8.5-10.1); Creatinine, Blood 0.52 mg/dL (0.40-1.00); Globulin, Blood 3.2 g/dL (2.2-4.0); Potassium, Blood 3.6 mmol/L (3.5-5.5); Total Protein, Blood 6.8 g/dL (6.4-8.2)
[2024-06-10] MEDS ORDERED: NS 1,000 ML IV SCH (11:05)
[2024-06-10] MEDS ORDERED: Magnesium Sulf 2 GM/Water 50ML 50 ML IV ONE (11:05)
[2024-06-10 11:18] LABS: Adenovirus Not Detected (NOT DETECT); Bordetella pertussis Not Detected (NOT DETECT); Chlamydophila pneumoniae Not Detected (NOT DETECT); Coronavirus 229E Not Detected (NOT DETECT); Coronavirus HKU1 Not Detected (NOT DETECT); Coronavirus NL63 Not Detected (NOT DETECT); Coronavirus OC43 Detected (NOT DETECT); Human Metapneumovirus Not Detected (NOT DETECT); Human Rhinovirus/Enterovirus Not Detected (NOT DETECT); Influenza A/2009-H1 Not Detected (NOT DETECT); Influenza A/H1 Not Detected (NOT DETECT); Influenza A/H3 Not Detected (NOT DETECT); Influenza B Not Detected (NOT DETECT); Mycoplasma pneumoniae Not Detected (NOT DETECT); Parainfluenza Virus 1 Not Detected (NOT DETECT); Parainfluenza Virus 2 Not Detected (NOT DETECT); Parainfluenza Virus 3 Not Detected (NOT DETECT); Parainfluenza Virus 4 Not Detected (NOT DETECT); Respiratory Syncytial Virus Not Detected (NOT DETECT); SARS-Cov-2 (COVID-19), BioFire Not Detected (NOT DETECT)
[2024-06-10 12:30] VITALS: BP 139/93
[2024-06-11] MEDS ORDERED: ABILIFY MYCITE10 M2 PO (15:18)
[2024-06-11] MEDS ORDERED: METF500 (15:20)
[2024-06-11] MEDS ORDERED: NOVOLIN N100 UNIT/2 (15:21)
[2024-06-11] MEDS ORDERED: FIASP 100100 UNIT/3 (15:21)
== END 2024-06-10 13:10 | disposition home or self-care (01) ==
LOC: ER 08:33
PROVIDERS: Emergency Medicine; Student in an Organized Health Care Education/Training Program
DX: J45.901 Unspecified asthma with (acute) exacerbation (principal); J06.9 Acute upper respiratory infection, unspecified; I10 Essential (primary) hypertension; E11.9 Type 2 diabetes mellitus without complications; Z79.84 Long term (current) use of oral hypoglycemic drugs; Z79.01 Long term (current) use of anticoagulants; Z79.4 Long term (current) use of insulin; Z79.899 Other long term (current) drug therapy; Z88.6 Allergy status to analgesic agent; Z91.018 Allergy to other foods; Z88.8 Allergy status to other drugs, medicaments and biological substances; Z88.1 Allergy status to other antibiotic agents; Z91.011 Allergy to milk products
CPT/HCPCS: 0202U; 71046; 80053; 85025; 85379; 94640; 94664; 96365; 99284-25; J3475; J7030

== ENCOUNTER 2024-06-11 11:36 | Emergency (ER) | payer OTHER ==
[~2024-06-11] VITALS: Ht 162.6 cm; Wt 99.8 kg
[2024-06-11 12:14] LABS: BASOPHILS ABSOLUTE AUTO 0.02 K/mm3 (0.00-0.23); BASOPHILS PERCENT AUTO 0 % (0-2); EOSINOPHILS PERCENT AUTO 0 % (0-6); Hematocrit 36.4 % (33.0-51.0); Hemoglobin 11.4 g/dL (11.5-16.0); IMMATURE GRAN PERCENT AUTO 2 % (0-1); LYMPHOCYTES ABSOLUTE AUTO 0.44 K/mm3 (0.84-5.20); LYMPHOCYTES PERCENT AUTO 8 % (21-46); MONOCYTES ABSOLUTE AUTO 0.24 K/mm3 (0.16-1.47); MONOCYTES PERCENT AUTO 4 % (4-13); Mean Corpuscular HGB 26.2 pg (26.0-34.0); Mean Corpuscular HGB Conc 31.3 g/dL (31.5-36.5); Mean Corpuscular Volume 84 fL (80-100); Mean Platelet Volume 10.3 fL (9.1-12.4); NEUTROPHILS ABSOLUTE AUTO 4.98 K/mm3 (1.96-9.15); NEUTROPHILS PERCENT AUTO 86 % (41-73); Platelet Count 240 K/mm3 (150-400); RDW Coefficient Variation 14.3 % (11.7-14.2); RDW Standard Deviation 43.9 fL (35.1-46.3); Red Blood Cell Count 4.35 M/mm3 (3.80-5.20); White Blood Cell Count 5.78 K/mm3 (4.00-11.30)
[2024-06-11 12:51] LABS: Albumin, Blood 3.7 g/dL (3.4-5.0); Albumin/Globulin Ratio 1.2 (0.8-1.8); Bilirubin, Total 0.3 mg/dL (0.1-1.0); Bun/Creatinine Ratio 9.3 (12.0-20.0); Calcium, Blood 9.2 mg/dL (8.5-10.1); Creatinine, Blood 0.54 mg/dL (0.40-1.00); Globulin, Blood 3.2 g/dL (2.2-4.0); Potassium, Blood 3.9 mmol/L (3.5-5.5); Total Protein, Blood 6.9 g/dL (6.4-8.2)
[2024-06-11] MEDS ORDERED: ABILIFY MYCITE10 M2 PO (15:18)
[2024-06-11] MEDS ORDERED: Albuterol 2.5 MG/3 ML VIAL INH SCH (15:20)
[2024-06-11] MEDS ORDERED: METF500 (15:20)
[2024-06-11] MEDS ORDERED: Ipratropium Bromide INH 0.02% 0.5 mg/2.5ML Vial INH SCH (15:20)
[2024-06-11] MEDS ORDERED: NOVOLIN N100 UNIT/2 (15:21)
[2024-06-11] MEDS ORDERED: FIASP 100100 UNIT/3 (15:21)
[2024-06-11] MEDS ORDERED: Magnesium Sulf 2 GM/Water 50ML 50 ML IV ONE (15:25)
[2024-06-11 15:26] LABS: Free Thyroxine 1.08 ng/dL (0.70-1.60); Thyroid Stimulating Hormone 0.158 uIU/mL (0.360-4.800); Triiodothyronine, Free 2.76 pg/mL (2.18-3.98)
[2024-06-11 15:49] LABS: Base Excess Venous -0.1 mmol/L; Bicarbonate Venous 24.3 mmol/L (24.0-30.0); PCO2 Venous 41.3 mmHg (38-42); pH Blood Venous 7.39 (7.34-7.37)
[2024-06-11] MEDS ORDERED: RITONAVIR UD ONE (18:15)
[2024-06-11] MEDS ORDERED: NIRMATRELVIR UD ONE (18:15)
[2024-06-11 18:34] VITALS: BP 151/95
== END 2024-06-11 18:40 | disposition home or self-care (01) ==
LOC: ER 11:36
PROVIDERS: Student in an Organized Health Care Education/Training Program
DX: U07.1 COVID-19 (principal); J45.909 Unspecified asthma, uncomplicated; I10 Essential (primary) hypertension; E11.8 Type 2 diabetes mellitus with unspecified complications; J44.9 Chronic obstructive pulmonary disease, unspecified; Z88.6 Allergy status to analgesic agent; Z91.018 Allergy to other foods; Z88.1 Allergy status to other antibiotic agents; Z88.8 Allergy status to other drugs, medicaments and biological substances; Z88.9 Allergy status to unspecified drugs, medicaments and biological substances; Z79.51 Long term (current) use of inhaled steroids; Z79.01 Long term (current) use of anticoagulants; Z79.1 Long term (current) use of non-steroidal anti-inflammatories (NSAID); Z79.811 Long term (current) use of aromatase inhibitors; Z79.899 Other long term (current) drug therapy; Z16.32 Resistance to antifungal drug(s); Z79.891 Long term (current) use of opiate analgesic; Z79.4 Long term (current) use of insulin; Z79.52 Long term (current) use of systemic steroids
CPT/HCPCS: 71045; 80053; 82803; 84439; 84443; 84481; 85025; 93005; 93010; 94644; 94664; 96365; 99284-25; J3475

== ENCOUNTER 2024-06-19 12:18 | Emergency (ER) | payer OTHER ==
[~2024-06-19] VITALS: Ht 157.5 cm; Wt 99.8 kg
[~2024-06-19 12:18] MED LIST changes: +ABILIFY MYCITE10 M2 PO; +METF500
[2024-06-19 13:18] LABS: BASOPHILS ABSOLUTE AUTO 0.07 K/mm3 (0.00-0.23); BASOPHILS PERCENT AUTO 1 % (0-2); EOSINOPHILS PERCENT AUTO 0 % (0-6); Hematocrit 43.4 % (33.0-51.0); IMMATURE GRAN ABSOLUTE AUTO 0.73 K/mm3 (0.00-0.10); IMMATURE GRAN PERCENT AUTO 6 % (0-1); LYMPHOCYTES ABSOLUTE AUTO 0.64 K/mm3 (0.84-5.20); LYMPHOCYTES PERCENT AUTO 5 % (21-46); MONOCYTES ABSOLUTE AUTO 0.71 K/mm3 (0.16-1.47); MONOCYTES PERCENT AUTO 6 % (4-13); Mean Corpuscular HGB Conc 32.3 g/dL (31.5-36.5); Mean Corpuscular Volume 81 fL (80-100); Mean Platelet Volume 10.5 fL (9.1-12.4); NEUTROPHILS ABSOLUTE AUTO 10.43 K/mm3 (1.96-9.15); NEUTROPHILS PERCENT AUTO 83 % (41-73); Platelet Count 309 K/mm3 (150-400); RDW Coefficient Variation 14.6 % (11.7-14.2); RDW Standard Deviation 42.4 fL (35.1-46.3); Red Blood Cell Count 5.39 M/mm3 (3.80-5.20); White Blood Cell Count 12.58 K/mm3 (4.00-11.30)
[2024-06-19 14:07] LABS: Albumin, Blood 3.8 g/dL (3.4-5.0); Albumin/Globulin Ratio 1.3 (0.8-1.8); Bilirubin, Total 0.3 mg/dL (0.1-1.0); Bun/Creatinine Ratio 35.9 (12.0-20.0); Creatinine, Blood 0.59 mg/dL (0.40-1.00); Potassium, Blood 3.9 mmol/L (3.5-5.5); Total Protein, Blood 6.8 g/dL (6.4-8.2)
[2024-06-19 14:44] VITALS: BP 144/118
== END 2024-06-19 16:52 | disposition home or self-care (01) ==
LOC: ER 12:18
PROVIDERS: Physician Assistant
DX: A08.4 Viral intestinal infection, unspecified (principal); R11.2 Nausea with vomiting, unspecified; E11.9 Type 2 diabetes mellitus without complications; I10 Essential (primary) hypertension; J45.50 Severe persistent asthma, uncomplicated; Z88.6 Allergy status to analgesic agent; Z91.018 Allergy to other foods; Z88.1 Allergy status to other antibiotic agents; Z88.8 Allergy status to other drugs, medicaments and biological substances; Z91.011 Allergy to milk products; Z79.51 Long term (current) use of inhaled steroids; Z79.01 Long term (current) use of anticoagulants; Z79.1 Long term (current) use of non-steroidal anti-inflammatories (NSAID); Z79.811 Long term (current) use of aromatase inhibitors; Z79.899 Other long term (current) drug therapy; Z79.891 Long term (current) use of opiate analgesic; Z79.02 Long term (current) use of antithrombotics/antiplatelets
CPT/HCPCS: 71046; 76705; 80053; 84484; 85025; 93005; 93010; 99284-25

== ENCOUNTER 2024-10-14 13:54 | Inpatient (IN) | payer OTHER ==
[~2024-10-14] VITALS: Ht 167.6 cm; Wt 84.8 kg
[~2024-10-14 13:54] MED LIST changes: -METF500
[2024-10-14] MEDS ORDERED: NS 1,000 ML IV SCH ×3 (14:20→17:10)
[2024-10-14] MEDS ORDERED: Morphine Sulfate 4 MG/1 ML Injection IV ONE ×2 (14:20→17:10)
[2024-10-14] MEDS ORDERED: Ondansetron HCl 2 MG / ML 2ML Vial IV ONE ×2 (14:20→17:10)
[2024-10-14 15:18] LABS: BASOPHILS ABSOLUTE AUTO 0.01 K/mm3 (0.00-0.23); BASOPHILS PERCENT AUTO 0 % (0-2); EOSINOPHILS ABSOLUTE AUTO 0.01 K/mm3 (0.00-0.68); EOSINOPHILS PERCENT AUTO 0 % (0-6); Hematocrit 31.3 % (33.0-51.0); Hemoglobin 9.7 g/dL (11.5-16.0); IMMATURE GRAN ABSOLUTE AUTO 0.03 K/mm3 (0.00-0.10); IMMATURE GRAN PERCENT AUTO 1 % (0-1); LYMPHOCYTES ABSOLUTE AUTO 0.26 K/mm3 (0.84-5.20); LYMPHOCYTES PERCENT AUTO 9 % (21-46); MONOCYTES ABSOLUTE AUTO 0.44 K/mm3 (0.16-1.47); MONOCYTES PERCENT AUTO 15 % (4-13); Mean Corpuscular HGB 23.4 pg (26.0-34.0); Mean Corpuscular Volume 75 fL (80-100); NEUTROPHILS ABSOLUTE AUTO 2.25 K/mm3 (1.96-9.15); NEUTROPHILS PERCENT AUTO 75 % (41-73); RDW Coefficient Variation 15.3 % (11.7-14.2); RDW Standard Deviation 41.8 fL (35.1-46.3); Red Blood Cell Count 4.15 M/mm3 (3.80-5.20)
[2024-10-14 15:21] LABS: Source, Urine Clean Catch
[2024-10-14 15:33] LABS: Appearance, Urine Clear (Clear); Bilirubin, Urine Neg (Neg); Blood, Urine 2+ (Neg); Color, Urine Yellow (P-Yellow); Glucose Qualitative, Urine 4+ (Neg); Ketones, Urine 1+ (Neg); Leukocyte Esterase, Urine 1+ (Neg); Nitrite, Urine Neg (Neg); Protein, Urine 3+ (Neg); Urobilinogen, Urine NORM (Normal)
[2024-10-14 15:48] LABS: Platelet Count 95 K/mm3 (150-400)
[2024-10-14 15:52] LABS: Bacteria Rare /hpf; Squamous Epithelial Cells Many /hpf (Few)
[2024-10-14 15:55] LABS: Albumin, Blood 2.5 g/dL (3.4-5.0); Albumin/Globulin Ratio 0.7 (0.8-1.8); Bilirubin, Total 0.4 mg/dL (0.1-1.0); Bun/Creatinine Ratio 18.5 (12.0-20.0); Calcium, Blood 8.7 mg/dL (8.5-10.1); Creatinine, Blood 0.54 mg/dL (0.40-1.00); Globulin, Blood 3.8 g/dL (2.2-4.0); Potassium, Blood 3.1 mmol/L (3.5-5.5); Total Protein, Blood 6.3 g/dL (6.4-8.2)
[2024-10-14] MEDS ORDERED: CefOXitin Sodium 2,000 MG in NS 50 ML IV ONE (16:25)
[2024-10-14] MEDS ORDERED: Ondansetron HCl 2 MG / ML 2ML Vial IV PRN (17:00)
[2024-10-14] MEDS ORDERED: Acetaminophen 325 MG TABLET PO PRN (17:05)
[2024-10-14 17:38] LABS: IMMATURE RETIC FRACTION 6.9 % (2.3-16.0); RETIC HGB EQUIVALENT 19.4 pg (28.20-36.60); RETICULOCYTE COUNT PERCENT 0.46 % (0.50-2.50)
[2024-10-14 17:56] LABS: International Normalized Ratio 1.57; Prothrombin Time Results 16.7 Sec (9.7-11.5)
[2024-10-14] MEDS ORDERED: Meropenem 1,000 MG in NS 100 ML IV SCH (18:00)
[2024-10-14 18:14] VITALS: BP 141/75
[2024-10-14] MEDS ORDERED: NS 250 ML IV PRN (18:15)
[2024-10-14] MEDS ORDERED: TIOT18 INH (18:21)
[2024-10-14] MEDS ORDERED: FLUT1DIS5 INH (18:22)
[2024-10-14] MEDS ORDERED: CODACE30 PO (18:23)
[2024-10-14] MEDS ORDERED: LORA10ER PO (18:24)
[2024-10-14 18:29] LABS: Percent Saturation 5.7 % (15.0-50.0)
--- NOTE | 2024-10-14 18:53 | NUR ---
ADMITTED TO MEDICAL UNIT FROM ER AT 1805HRS. FIRST PART OF ADMISSION COMPLETED. PLACED ON TELEMETRY SR 102 PER LABORATORY ANIMAL FACILITY SUPERVISOR. IV ABX STARTED AFTER ER BOLUS COMPLETED. PT ABLE TO STAND TO WALK INTO THE BATHROOM, STEADY GAIT. SUPPORTIVE FAMILY AT BEDSIDE. LUQ ABDOMINAL PAIN THROUGH TO HER BACK 12/02. MILDLY NAUSEAUS, THIRSTY, GIVEN WATER. BED LOW, CALL LIGHT IN REACH.
[2024-10-14 19:33] VITALS: BP 153/84
[2024-10-14] MEDS ORDERED: Lactobacil 2-S.Thermo-Bifido 1 1 Cap PO SCH (21:00)
[2024-10-14] MEDS ORDERED: Sod Ferric Gluc Complx/Sucrose 125 MG in NS 100 ML IV SCH (22:35)
[2024-10-14 23:48] VITALS: BP 150/95
[2024-10-15] MEDS ORDERED: Morphine Sulfate 4 MG/1 ML Injection IV PRN (00:20)
--- NOTE | 2024-10-15 03:13 | NUR ---
SHIFT SUMMARY PATIENT HAS HAD A RESTLESS NIGHT TONIGHT. MD WAS NOTIFIED OF PAIN AND PRN MORPHINE WAS ORDERED AND ADMINISTERED. IV ABX HAVE INFUSED WITHOUT COMPLICATIONS. PATIENT HAS HER CALL LIGHT WITHIN REACH AND HAS BEEN INSTRUCTED TO CALL WITH ANY REQUESTS OR NEEDS. SHE IS TACHYCARDIC WITH ACTIVITY.
[2024-10-15 04:08] VITALS: BP 148/81
[2024-10-15 04:45] LABS: BASOPHILS PERCENT AUTO 0 % (0-2); EOSINOPHILS PERCENT AUTO 0 % (0-6); Hematocrit 25.9 % (33.0-51.0); Hemoglobin 7.9 g/dL (11.5-16.0); IMMATURE GRAN ABSOLUTE AUTO 0.01 K/mm3 (0.00-0.10); IMMATURE GRAN PERCENT AUTO 1 % (0-1); LYMPHOCYTES ABSOLUTE AUTO 0.22 K/mm3 (0.84-5.20); LYMPHOCYTES PERCENT AUTO 11 % (21-46); MONOCYTES ABSOLUTE AUTO 0.38 K/mm3 (0.16-1.47); MONOCYTES PERCENT AUTO 19 % (4-13); Mean Corpuscular HGB 23.2 pg (26.0-34.0); Mean Corpuscular HGB Conc 30.5 g/dL (31.5-36.5); Mean Corpuscular Volume 76 fL (80-100); NEUTROPHILS PERCENT AUTO 70 % (41-73); Platelet Count 80 K/mm3 (150-400); RDW Coefficient Variation 15.4 % (11.7-14.2); White Blood Cell Count 2.01 K/mm3 (4.00-11.30)
[2024-10-15 05:06] LABS: Albumin, Blood 2.1 g/dL (3.4-5.0); Albumin/Globulin Ratio 0.7 (0.8-1.8); Bilirubin, Total 0.3 mg/dL (0.1-1.0); Bun/Creatinine Ratio 19.7 (12.0-20.0); Calcium, Blood 8.3 mg/dL (8.5-10.1); Creatinine, Blood 0.46 mg/dL (0.40-1.00); Globulin, Blood 3.2 g/dL (2.2-4.0); Magnesium, Blood 1.9 mg/dL (1.6-2.4); Potassium, Blood 2.8 mmol/L (3.5-5.5); Total Protein, Blood 5.3 g/dL (6.4-8.2)
[2024-10-15] MEDS ORDERED: Potassium Chloride 40 MEQ in NS 250 ML IV ONE (06:00)
[2024-10-15] MEDS ORDERED: Acetaminophen/Codeine 300-30 mg PO PRN (06:25)
[2024-10-15] MEDS ORDERED: Albuterol HFA200 ACT/6.7 GM INH INH PRN (06:45)
[2024-10-15] MEDS ORDERED: Fluticasone 0.05% Nasal Spray PRN (06:45)
[2024-10-15] MEDS ORDERED: Formoterol/Mometasone MDI 5/200 mcg 13 GM INH SCH (06:45)
[2024-10-15] MEDS ORDERED: Tiotropium Bromide 2.5 MCG/ACT MIST INHAL (10 ACT/4 GM) INH SCH (06:45)
[2024-10-15] MEDS ORDERED: Pantoprazole Sodium 40 MG Tab PO SCH (07:30)
[2024-10-15 08:06] LABS: Hematocrit 25.9 % (33.0-51.0); Mean Corpuscular HGB 23.6 pg (26.0-34.0); Mean Corpuscular HGB Conc 30.9 g/dL (31.5-36.5); Mean Corpuscular Volume 76 fL (80-100); Platelet Count 79 K/mm3 (150-400); RDW Coefficient Variation 15.4 % (11.7-14.2); RDW Standard Deviation 43.3 fL (35.1-46.3); Red Blood Cell Count 3.39 M/mm3 (3.80-5.20); White Blood Cell Count 1.94 K/mm3 (4.00-11.30)
[2024-10-15 08:28] LABS: BASOPHILS PERCENT MAN 0 % (0-2); EOSINOPHILS PERCENT MAN 0 % (0-6); LYMPHOCYTES ABSOLUTE MAN 0.27 K/mm3 (0.84-5.20); LYMPHOCYTES PERCENT MAN 14 % (21-46); MONOCYTES ABSOLUTE MAN 0.27 K/mm3 (0.16-1.47); MONOCYTES PERCENT MAN 14 % (4-13); NEUTROPHILS ABSOLUTE MAN 1.39 K/mm3 (1.96-9.15); SEG NEUTROPHILS PERCENT MAN 72 % (41-73); TOTAL CELLS COUNTED 100
[2024-10-15] MEDS ORDERED: dilTIAZem HCL 240 MG CAP.CD PO SCH (09:00)
[2024-10-15] MEDS ORDERED: NS 1,000 ML IV SCH (09:00)
[2024-10-15] MEDS ORDERED: Loratadine 10 MG Tab PO SCH (09:00)
[2024-10-15] MEDS ORDERED: Clotrimazole 1% Cream 15 GM Tube TOP SCH (09:00)
[2024-10-15] MEDS ORDERED: Sertraline HCl 100 MG Tab PO SCH (09:00)
[2024-10-15 09:11] VITALS: BP 140/84
--- NOTE | 2024-10-15 11:31 | NUR ---
[address] FLORES/[facility] FOR REFERAL. MESSAGE TO BE PASSED ALONG TO . DESK WORKER CONFIRMED THAT THEY ARE NOT PLATING OPERATOR AND SHE DOESN'T KNOW IF THEY WILL BE ABLE TO CONSULT TODAY.
[2024-10-15 12:16] VITALS: BP 148/74
[2024-10-15 14:44] LABS: BASOPHILS PERCENT AUTO 0 % (0-2); EOSINOPHILS PERCENT AUTO 0 % (0-6); Hemoglobin 7.9 g/dL (11.5-16.0); IMMATURE GRAN ABSOLUTE AUTO 0.01 K/mm3 (0.00-0.10); IMMATURE GRAN PERCENT AUTO 1 % (0-1); LYMPHOCYTES ABSOLUTE AUTO 0.22 K/mm3 (0.84-5.20); LYMPHOCYTES PERCENT AUTO 15 % (21-46); MONOCYTES ABSOLUTE AUTO 0.29 K/mm3 (0.16-1.47); MONOCYTES PERCENT AUTO 20 % (4-13); Mean Corpuscular HGB 23.6 pg (26.0-34.0); Mean Corpuscular HGB Conc 30.4 g/dL (31.5-36.5); Mean Corpuscular Volume 78 fL (80-100); NEUTROPHILS ABSOLUTE AUTO 0.97 K/mm3 (1.96-9.15); NEUTROPHILS PERCENT AUTO 65 % (41-73); Platelet Count 79 K/mm3 (150-400); RDW Coefficient Variation 15.3 % (11.7-14.2); Red Blood Cell Count 3.35 M/mm3 (3.80-5.20); White Blood Cell Count 1.49 K/mm3 (4.00-11.30)
[2024-10-15 15:46] VITALS: BP 141/80
[2024-10-15] MEDS ORDERED: ATEN100 PO (16:33)
[2024-10-15] MEDS ORDERED: JENCYCLA0.35 MG PO (16:34)
[2024-10-15] MEDS ORDERED: OLANZAPINE20 M1 PO (16:35)
[2024-10-15] MEDS ORDERED: TIZANIDINE HCL2 M1 PO (16:36)
--- NOTE | 2024-10-15 18:19 | NUR ---
Shift Summary Ms Armstrong c/o feeling generally unwell. Tired, weak, abdominal pain. Very poor appetite, she declined breakfast, ate 15% of lunch and is currently looking like she will not eat supper. On maintanance IVF. She sipped the ensure plant based protein drink and did not like it, but tried it at room temperature and did not want it cooled or on ice. ROUSTABOUT described early shift black tarry stool, hat in toilet for specimen collection but only stool was small brown liquid mixed in urine so still awaiting sample. Morphine and zofran take the edge off pain and nausea. Tele SR/ST no calls from telephonic nurse. Up to bathroom with stand by assistance. Bed low, call light in reach.
[2024-10-15] MEDS ORDERED: Potassium Chloride 40 MEQ in NS 250 ML IV SCH (19:00)
[2024-10-15 19:47] VITALS: BP 159/80
[2024-10-15] MEDS ORDERED: Gabapentin 300 MG Cap PO SCH (21:00)
[2024-10-15] MEDS ORDERED: OLANZapine 10 MG Tab PO SCH (21:00)
[2024-10-16 00:10] VITALS: BP 153/84
--- NOTE | 2024-10-16 03:08 | NUR ---
SHIFT SUMMARY PATIENT HAS BEEN SLEEPING INTERMITTANTLY THROUGHOUT THE NIGHT. SHE HAS BEEN MEDICATED FOR PAIN X2 ON THIS SHIFT WITH 4 MG OF MORPHINE AND FOR NAUSEA WITH 4 MG OF ZOFRAN. IV ABX HAVE INFUSED WITHOUT COMPLICATIONS. SHE IS ORIENTED X4 AND HAS HER CALL LIGHT WITHIN REACH. SAFETY PRECAUTIONS ARE BEING MAINTAINED.
[2024-10-16 04:23] VITALS: BP 151/75
[2024-10-16 05:27] LABS: BASOPHILS PERCENT AUTO 0 % (0-2); EOSINOPHILS PERCENT AUTO 0 % (0-6); Hematocrit 26.7 % (33.0-51.0); IMMATURE GRAN ABSOLUTE AUTO 0.02 K/mm3 (0.00-0.10); IMMATURE GRAN PERCENT AUTO 1 % (0-1); LYMPHOCYTES ABSOLUTE AUTO 0.36 K/mm3 (0.84-5.20); LYMPHOCYTES PERCENT AUTO 18 % (21-46); MONOCYTES ABSOLUTE AUTO 0.35 K/mm3 (0.16-1.47); MONOCYTES PERCENT AUTO 18 % (4-13); Mean Corpuscular HGB 23.6 pg (26.0-34.0); Mean Corpuscular Volume 79 fL (80-100); NEUTROPHILS ABSOLUTE AUTO 1.26 K/mm3 (1.96-9.15); NEUTROPHILS PERCENT AUTO 63 % (41-73); Platelet Count 91 K/mm3 (150-400); RDW Coefficient Variation 15.5 % (11.7-14.2); RDW Standard Deviation 44.4 fL (35.1-46.3); Red Blood Cell Count 3.39 M/mm3 (3.80-5.20); White Blood Cell Count 1.99 K/mm3 (4.00-11.30)
[2024-10-16 05:35] LABS: Mean Platelet Volume 12.8 fL (9.1-12.4)
[2024-10-16 05:52] LABS: Free Thyroxine 2.16 ng/dL (0.70-1.60); LDL/HDL RATIO 3.2; Thyroid Stimulating Hormone <0.005 uIU/mL (0.360-4.800); Triiodothyronine, Free 5.24 pg/mL (2.18-3.98)
[2024-10-16 05:53] LABS: Alanine Aminotransfer (ALT/SGP 21 U/L (12-78); Albumin, Blood 1.9 g/dL (3.4-5.0); Albumin/Globulin Ratio 0.6 (0.8-1.8); Alk Phos 90 U/L (50-136); Anion Gap 7 mmol/L (3-11); Aspartate Aminotrans (AST/SGOT 61 U/L (12-37); Bilirubin, Total 0.2 mg/dL (0.1-1.0); Blood Urea Nitrogen 7 mg/dL (8-24); Bun/Creatinine Ratio 16.5 (12.0-20.0); CHOL/HDL RATIO 7.2; CO2, Blood 25 mmol/L (21-32); Calcium, Blood 8.1 mg/dL (8.5-10.1); Chloride, Blood 110 mmol/L (98-108); Cholesterol 94 mg/dL (50-200); Creatinine, Blood 0.43 mg/dL (0.40-1.00); Globulin, Blood 3.2 g/dL (2.2-4.0); Glomerular Filtration Rate 135 (60-); Glucose, Blood 115 mg/dL (70-99); HDL Cholesterol 13 mg/dL (>39); Low Density Lipoprotein Chol 41 mg/dL (0-110); Potassium, Blood 2.8 mmol/L (3.5-5.5); Sodium, Blood 139 mmol/L (136-145); Total Protein, Blood 5.1 g/dL (6.4-8.2); Triglycerides 199 mg/dL (30-140); Very Low Density Lipoprot Chol 39 mg/dL (6-28)
[2024-10-16] MEDS ORDERED: Potassium Chloride 20 MEQ/15 ML UDC PO ONE (06:55)
[2024-10-16] MEDS ORDERED: Potassium Chloride 40 MEQ in NS 250 ML IV SCH (07:00)
[2024-10-16 07:44] VITALS: BP 151/83
[2024-10-16] MEDS ORDERED: NS 1,000 ML IV ONE (09:05)
[2024-10-16] MEDS ORDERED: Magnesium Sulf 2 GM/Water 50ML 50 ML IV ONE (10:00)
[2024-10-16 15:33] VITALS: BP 145/80
[2024-10-16] MEDS ORDERED: Ondansetron HCl 2 MG / ML 2ML Vial IV PRN (16:20)
[2024-10-16] MEDS ORDERED: Promethazine HCl 25 MG Tab PO PRN (16:20)
--- NOTE | 2024-10-16 16:24 | NUR ---
PT NEEDED NEW MEDICATIONS THIS MORNING WITH POOR PIV ACCESS AD THIS NURSE COULDNT OBTAIN NEW ACCESS. DOROTHY PLACED TO PG FOR ADDIQUATE ACCESS. PT HAS HAD C/O PAIN AND NAUSEA. SEE EMAR FOR TIMES AND FREQUENCY. PT HAS NO QUESTIONS OR CONCERNS AT THIS TIME.
--- NOTE | 2024-10-16 16:39 | NUR ---
RESUMING CARE FOR PATINET UNTIL SHIFT CHANGE.
--- NOTE | 2024-10-16 17:46 | NUR ---
PATIENT CONTINUES TO HAVE PAIN AND NAUSEA REQUIRING IV MORPHINE AND ZOFRAN. PT REPORTS MORPHINE HAS BEEN MAINTAINING PAIN BUT NOT DECREASING IN SCALE. PATIENT TOLERATING PO FLUIDS BUT HAS NOT EATEN ANYTHING. CONTINUES TO HAVE DIARRHEA, STOOL OCCULT PENDING. PT SEEMS TO HAVE A FLAT AFFECT. BILAT POWERGLIDES PLACED TODAY, CAPPED. IV ANTIBIOTICS INFUSING.
[2024-10-16 20:04] VITALS: BP 149/81
[2024-10-17 00:31] VITALS: BP 145/74
--- NOTE | 2024-10-17 03:55 | NUR ---
SHIFT SUMMARY. PATIENT APPEARS TO BE RESTING COMFORTABLY AT THIS TIME. SHE IS VERY ENCOURAGED TONIGHT BECAUSE SHE WAS ABLE TO EAT A SANDWHICH AND IT DID NOT CAUSE HER ANY NAUSEA. IV ABX HAVE INFUSED WITHOUT COMPLICATIONS. PATIENT HAS BEEN MEDICATED FOR NAUSEA AND PAIN X2 ON THIS SHIFT. PATIENT IS ORIENTED X4. SHE HAS HER CALL LIGHT WITHIN REACH. SAFETY PRECAUTIONS ARE BEING MAINTAINED.
[2024-10-17 04:46] VITALS: BP 149/83
[2024-10-17 05:06] LABS: BASOPHILS PERCENT AUTO 0 % (0-2); EOSINOPHILS PERCENT AUTO 0 % (0-6); Hematocrit 25.7 % (33.0-51.0); Hemoglobin 7.7 g/dL (11.5-16.0); IMMATURE GRAN ABSOLUTE AUTO 0.04 K/mm3 (0.00-0.10); IMMATURE GRAN PERCENT AUTO 2 % (0-1); LYMPHOCYTES ABSOLUTE AUTO 0.37 K/mm3 (0.84-5.20); LYMPHOCYTES PERCENT AUTO 16 % (21-46); MONOCYTES ABSOLUTE AUTO 0.28 K/mm3 (0.16-1.47); MONOCYTES PERCENT AUTO 12 % (4-13); Mean Corpuscular HGB 23.2 pg (26.0-34.0); Mean Corpuscular Volume 77 fL (80-100); NEUTROPHILS ABSOLUTE AUTO 1.61 K/mm3 (1.96-9.15); NEUTROPHILS PERCENT AUTO 70 % (41-73); Platelet Count 102 K/mm3 (150-400); RDW Coefficient Variation 15.7 % (11.7-14.2); RDW Standard Deviation 44.1 fL (35.1-46.3); Red Blood Cell Count 3.32 M/mm3 (3.80-5.20)
[2024-10-17 05:26] LABS: Albumin, Blood 1.9 g/dL (3.4-5.0); Albumin/Globulin Ratio 0.7 (0.8-1.8); Bilirubin, Total 0.3 mg/dL (0.1-1.0); Bun/Creatinine Ratio 11.6 (12.0-20.0); Calcium, Blood 8.6 mg/dL (8.5-10.1); Creatinine, Blood 0.43 mg/dL (0.40-1.00); Globulin, Blood 2.9 g/dL (2.2-4.0); Phosphorus, Blood 3.1 mg/dL (2.5-4.9); Potassium, Blood 3.6 mmol/L (3.5-5.5); Total Protein, Blood 4.8 g/dL (6.4-8.2)
[2024-10-17 07:28] VITALS: BP 142/85
[2024-10-17] MEDS ORDERED: DILTIAZEM 24HR240 M3 PO (11:17)
[2024-10-17] MEDS ORDERED: SPIRIVA RESPIMAT4 G2 INH (11:18)
[2024-10-17] MEDS ORDERED: PROP50 PO (11:19)
[2024-10-17 12:23] LABS: Stool Occult Bld Immuno 1 Negative (NEGATIVE)
[2024-10-17] MEDS ORDERED: Iron Dextran 50 MG / ML 2ML Vial IV ONE (12:45)
[2024-10-17] MEDS ORDERED: Iron Dextran 975 MG in NS 250 ML IV ONE (14:00)
[2024-10-17 16:14] VITALS: BP 144/73
--- NOTE | 2024-10-17 17:34 | NUR ---
SHIFT SUMMARY PT AOX4, COOPERATIVE, ABLE TO MAKE NEEDS KNOWN. PT IS IND IN ROOM. HAS L AND SHERRY POWERGLIDES. TOLERATING PO AND IV MEDS. NO OTHER CONCERNS FOR THE SHIFT. MEDICATING PER EMAR FOR PAIN. BED IN LOWETS POSITION, CALL LIGHT WITHIN REACH.
[2024-10-17 20:43] VITALS: BP 155/86
[2024-10-18 05:05] VITALS: BP 165/93
[2024-10-18 05:21] LABS: BASOPHILS ABSOLUTE AUTO 0.01 K/mm3 (0.00-0.23); BASOPHILS PERCENT AUTO 0 % (0-2); EOSINOPHILS PERCENT AUTO 0 % (0-6); Hematocrit 26.9 % (33.0-51.0); Hemoglobin 8.2 g/dL (11.5-16.0); IMMATURE GRAN ABSOLUTE AUTO 0.12 K/mm3 (0.00-0.10); IMMATURE GRAN PERCENT AUTO 5 % (0-1); LYMPHOCYTES ABSOLUTE AUTO 0.52 K/mm3 (0.84-5.20); LYMPHOCYTES PERCENT AUTO 20 % (21-46); MONOCYTES ABSOLUTE AUTO 0.26 K/mm3 (0.16-1.47); MONOCYTES PERCENT AUTO 10 % (4-13); Mean Corpuscular HGB 23.8 pg (26.0-34.0); Mean Corpuscular HGB Conc 30.5 g/dL (31.5-36.5); Mean Corpuscular Volume 78 fL (80-100); NEUTROPHILS ABSOLUTE AUTO 1.64 K/mm3 (1.96-9.15); NEUTROPHILS PERCENT AUTO 64 % (41-73); Platelet Count 129 K/mm3 (150-400); RDW Coefficient Variation 15.7 % (11.7-14.2); RDW Standard Deviation 44.2 fL (35.1-46.3); Red Blood Cell Count 3.45 M/mm3 (3.80-5.20); White Blood Cell Count 2.55 K/mm3 (4.00-11.30)
[2024-10-18 05:37] LABS: Mean Platelet Volume 12.1 fL (9.1-12.4)
[2024-10-18 05:38] LABS: Albumin, Blood 1.9 g/dL (3.4-5.0); Albumin/Globulin Ratio 0.6 (0.8-1.8); Bilirubin, Total 0.1 mg/dL (0.1-1.0); Bun/Creatinine Ratio 8.9 (12.0-20.0); Calcium, Blood 8.1 mg/dL (8.5-10.1); Creatinine, Blood 0.45 mg/dL (0.40-1.00); Potassium, Blood 3.1 mmol/L (3.5-5.5); Total Protein, Blood 4.9 g/dL (6.4-8.2)
--- NOTE | 2024-10-18 06:14 | NUR ---
SHIFT SUMMARY PT HAS BEEN RESTING IN BED COMFORTABLY OVERNIGHT. SHE HAS BEEN AOX4, CALM AND COOPERATIVE. SHE ALSO HAS CALLED APPROPRIATELY OVERNIGHT. SHE HAS BEEN COMPLAINING OF 7-8/10 PAIN IN LUQ AND OF CONSTANT NAUSEA. PT HAS BEEN MEDICATED PER EMAR FOR PAIN AND NAUSEA. PT HAS REPORTED BETTER APPETITE TONIGHT, DESPITE NAUSEA. PT HAS HAD NO OTHER COMPLAINTS OVERNIGHT, AND NO ACUTE EVENTS OVERNIGHT.
[2024-10-18] MEDS ORDERED: Magnesium Sulf 2 GM/Water 50ML 50 ML IV ONE (06:25)
[2024-10-18] MEDS ORDERED: Potassium Chl 20MEQ/Water100ML 100 ML IV SCH (07:00)
[2024-10-18 07:43] VITALS: BP 137/64
[2024-10-18 15:34] VITALS: BP 136/72
[2024-10-18 19:20] VITALS: BP 149/82
[2024-10-19 03:54] VITALS: BP 173/74
--- NOTE | 2024-10-19 04:09 | NUR ---
SHIFT SUMMARY A/O X4 PLEASANT AND COOPERATIVE THROUGHOUT THE NIGHT. VITAL SIGNS REMAINED STABLE. IND IN THE ROOM. MEDICATED FOR PAIN TO LLQ WITH MORPHINE X1 PER EMAR. MERREM GIVEN PER EMAR. GOOD APPETITE WITH NO REPORT OF N/V. NO ACUTE CHANGES. CALL LIGHT IN REACH, BED IN LOWEST POSITION. WILL REPORT TO ONCOMING RN.
[2024-10-19 05:28] LABS: Hematocrit 28.6 % (33.0-51.0); Hemoglobin 8.5 g/dL (11.5-16.0); Mean Corpuscular HGB 23.7 pg (26.0-34.0); Mean Corpuscular HGB Conc 29.7 g/dL (31.5-36.5); Mean Corpuscular Volume 80 fL (80-100); Mean Platelet Volume 11.5 fL (9.1-12.4); Platelet Count 173 K/mm3 (150-400); RDW Coefficient Variation 15.6 % (11.7-14.2); Red Blood Cell Count 3.58 M/mm3 (3.80-5.20); White Blood Cell Count 2.84 K/mm3 (4.00-11.30)
[2024-10-19 05:59] LABS: Albumin, Blood 2.1 g/dL (3.4-5.0); Albumin/Globulin Ratio 0.7 (0.8-1.8); Bilirubin, Total 0.2 mg/dL (0.1-1.0); Bun/Creatinine Ratio 6.4 (12.0-20.0); Calcium, Blood 8.2 mg/dL (8.5-10.1); Creatinine, Blood 0.47 mg/dL (0.40-1.00); Globulin, Blood 2.9 g/dL (2.2-4.0); Potassium, Blood 3.3 mmol/L (3.5-5.5)
[2024-10-19 06:03] LABS: BASOPHILS PERCENT MAN 0 % (0-2); EOSINOPHILS PERCENT MAN 0 % (0-6); LYMPHOCYTES ABSOLUTE MAN 0.45 K/mm3 (0.84-5.20); LYMPHOCYTES PERCENT MAN 16 % (21-46); METAMYELOCYTE ABSOLUTE MAN 0.05 K/mm3 (0.00-0.00); METAMYELOCYTE PERCENT MAN 2 % (0-0); MONOCYTES PERCENT MAN 0 % (4-13); MYELOCYTE ABSOLUTE MAN 0.05 K/mm3 (0.00-0.00); MYELOCYTE PERCENT MAN 2 % (0-0); NEUTROPHILS ABSOLUTE MAN 2.27 K/mm3 (1.96-9.15); SEG NEUTROPHILS PERCENT MAN 80 % (41-73); TOTAL CELLS COUNTED 50
[2024-10-19] MEDS ORDERED: HydrALAZINE HCl 20 MG / ML 1ML Vial IV PRN (06:30)
[2024-10-19] MEDS ORDERED: Potassium Chloride 40 MEQ in NS 250 ML IV ONE (06:45)
[2024-10-19 07:43] VITALS: BP 138/65
[2024-10-19] MEDS ORDERED: Thiamine HCl 100 MG Tab PO SCH (13:00)
[2024-10-19 16:14] VITALS: BP 131/67
--- NOTE | 2024-10-19 18:16 | NUR ---
SHIFT SUMMARY: NO NEW ACUTE CHANGED DURING THIS SHIFT. PLAN OF CARE ONGOING AT THIS TIME. WILL GIVE REPORT TO ONCOMING RN.
[2024-10-19 19:43] VITALS: BP 151/84
[2024-10-20 05:04] LABS: BASOPHILS ABSOLUTE AUTO 0.01 K/mm3 (0.00-0.23); BASOPHILS PERCENT AUTO 0 % (0-2); EOSINOPHILS PERCENT AUTO 0 % (0-6); Hemoglobin 8.6 g/dL (11.5-16.0); IMMATURE GRAN ABSOLUTE AUTO 0.15 K/mm3 (0.00-0.10); IMMATURE GRAN PERCENT AUTO 4 % (0-1); LYMPHOCYTES ABSOLUTE AUTO 0.65 K/mm3 (0.84-5.20); LYMPHOCYTES PERCENT AUTO 18 % (21-46); MONOCYTES ABSOLUTE AUTO 0.28 K/mm3 (0.16-1.47); MONOCYTES PERCENT AUTO 8 % (4-13); Mean Corpuscular HGB 23.8 pg (26.0-34.0); Mean Corpuscular HGB Conc 29.7 g/dL (31.5-36.5); Mean Corpuscular Volume 80 fL (80-100); Mean Platelet Volume 12.2 fL (9.1-12.4); NEUTROPHILS ABSOLUTE AUTO 2.56 K/mm3 (1.96-9.15); NEUTROPHILS PERCENT AUTO 70 % (41-73); Platelet Count 193 K/mm3 (150-400); RDW Coefficient Variation 15.8 % (11.7-14.2); RDW Standard Deviation 45.4 fL (35.1-46.3); Red Blood Cell Count 3.61 M/mm3 (3.80-5.20); White Blood Cell Count 3.65 K/mm3 (4.00-11.30)
[2024-10-20 05:22] VITALS: BP 163/89
[2024-10-20 05:27] LABS: Albumin, Blood 2.2 g/dL (3.4-5.0); Albumin/Globulin Ratio 0.8 (0.8-1.8); Bilirubin, Total 0.2 mg/dL (0.1-1.0); Bun/Creatinine Ratio 8.2 (12.0-20.0); Calcium, Blood 8.5 mg/dL (8.5-10.1); Creatinine, Blood 0.49 mg/dL (0.40-1.00); Globulin, Blood 2.8 g/dL (2.2-4.0); Potassium, Blood 3.4 mmol/L (3.5-5.5)
[2024-10-20 05:29] VITALS: BP 144/82
--- NOTE | 2024-10-20 06:38 | NUR ---
SHIFT SUMMARY CALM AND COHERENT. A&O X4. BUT APPEARS WEAK AND SLOW ON RESPONSE. IND AND SELF MANAGING W/O ANY PROBLEM. STILL ON CONT IV ABX AND TOLERATED , MAINTAINED PATENCY OF BOTH IV ACCESS. STILL HAS MILD NAUSEA BUT REGAINED APPETITE AT NIGHT AFTER A DOSE OF ANTI-EMETIC. ATE SNACKS 3X THIS SHIFT BETWEEN WIDE INTERVALS OF TIME. HAS 1 EPISODE OF BP ELEVATION BUT NORMALIZED WHEN RECHECKED.
[2024-10-20 07:22] VITALS: BP 158/85
[2024-10-20] MEDS ORDERED: Potassium Chloride 10 Meq Tablet SA PO SCH (09:00)
[2024-10-20 15:39] VITALS: BP 161/87
--- NOTE | 2024-10-20 18:34 | NUR ---
SUMMARY PATIENT RECEIVING ANTIBIOTICS ORDERED Q6. CONTINUES TO HAVE LEFT SIDED FLANK PAIN THAT RADIATES TO BACK. TYLENOL #3 GIVEN WITH REPORTED RELIEF. IV ZOFRAN GIVEN TODAY WELL FOR NAUSEA AND SMALL AMOUNT EMESIS POST SHOWER. PT ABLE TO MAKE NEEDS KNOWN. CALL LIGHT IN REACH. STAND-BY IN ROOM.
[2024-10-20 19:46] VITALS: BP 152/96
[2024-10-21 04:47] VITALS: BP 143/82
[2024-10-21 05:58] LABS: BASOPHILS ABSOLUTE AUTO 0.01 K/mm3 (0.00-0.23); BASOPHILS PERCENT AUTO 0 % (0-2); EOSINOPHILS PERCENT AUTO 0 % (0-6); Hematocrit 32.1 % (33.0-51.0); Hemoglobin 9.4 g/dL (11.5-16.0); IMMATURE GRAN PERCENT AUTO 4 % (0-1); LYMPHOCYTES ABSOLUTE AUTO 0.76 K/mm3 (0.84-5.20); LYMPHOCYTES PERCENT AUTO 16 % (21-46); MONOCYTES ABSOLUTE AUTO 0.26 K/mm3 (0.16-1.47); MONOCYTES PERCENT AUTO 5 % (4-13); Mean Corpuscular HGB 23.5 pg (26.0-34.0); Mean Corpuscular HGB Conc 29.3 g/dL (31.5-36.5); Mean Corpuscular Volume 80 fL (80-100); Mean Platelet Volume 11.3 fL (9.1-12.4); NEUTROPHILS ABSOLUTE AUTO 3.63 K/mm3 (1.96-9.15); NEUTROPHILS PERCENT AUTO 75 % (41-73); Platelet Count 221 K/mm3 (150-400); RDW Coefficient Variation 16.2 % (11.7-14.2); RDW Standard Deviation 45.4 fL (35.1-46.3); White Blood Cell Count 4.86 K/mm3 (4.00-11.30)
[2024-10-21 06:28] LABS: Albumin, Blood 2.3 g/dL (3.4-5.0); Albumin/Globulin Ratio 0.7 (0.8-1.8); Bilirubin, Total 0.2 mg/dL (0.1-1.0); Bun/Creatinine Ratio 13.9 (12.0-20.0); Calcium, Blood 8.5 mg/dL (8.5-10.1); Creatinine, Blood 0.43 mg/dL (0.40-1.00); Globulin, Blood 3.1 g/dL (2.2-4.0); Potassium, Blood 3.2 mmol/L (3.5-5.5); Total Protein, Blood 5.4 g/dL (6.4-8.2)
--- NOTE | 2024-10-21 06:40 | NUR ---
SHIFT SUMMARY A&O X4. INDEPENDENT AND SELF-CARING IN ROOM. VSS. VERBALISED NAUSEA AND LACK OF APPETITE WHOLE MORNING & AFTERNOON. CBG CHECKED NORMAL. NO SIGN OF WEAKNESS / DIZINESS, HAS BEEN NORMALLY APPEARING LETHARGIC.REQUESTED FOR HAM SANDWICH IN EVENING. ONLY TOLERATED SOME SNACKS WHOLE NIGHT. SLEPT GOOD BUT REQUESTED FOR PAIN & SICKNESS PILL AT 5AM.
[2024-10-21] MEDS ORDERED: Potassium Chl 20MEQ/Water100ML 100 ML IV SCH (07:30)
[2024-10-21] MEDS ORDERED: Mag Sulfate 1 GM/D5% 100ML 100 ML IV STA (07:30)
[2024-10-21 07:39] VITALS: BP 165/85
[2024-10-21] MEDS ORDERED: TraMADol HCl 50 MG Tab PO PRN (09:35)
[2024-10-21] MEDS ORDERED: Pramoxine HCl/Zinc Acetate Lotion 177 ML TOP PRN (09:35)
[2024-10-21] MEDS ORDERED: Hydrocortisone 1% Ointment 30 GM Tube TOP PRN (10:40)
[2024-10-21] MEDS ORDERED: Loratadine 10 MG Tab PO SCH (11:00)
--- NOTE | 2024-10-21 15:08 | NUR ---
SUMMARY PATIENT CONTINUES TO HAVE NAUSEA AND PAIN TO LEFT UPPER GUADRANT THAT RADIATES TO BACK. PRN PHERGAN AND TYLENOL #3 GIVEN THIS AM. PT STATED MILD RELIEF. POTASSIUM AND MAGNESIUM REPLETED TODAY, POTASSIUM STILL INFUSING AT THIS TIME. PT UP TO THE BATHROOM STAND-BY ASSIST. PT REPORTS A NEW RASH THAT APPEARED ABOUT 2 DAYS AGO TO BILAT BUTTOCKS THAT HAS BEEN GETTING WORSE SPREADING DOWN THIGHS AND TO GROIN. RASH OUTLINED WITH MARKER. ANTIFUNGAL CREAM APPLIED AND NOTIFIED DR. DE PAZ AND DR. PAIZ. HYDROCORTISONE CREAM ORDERED PER DR. PAIZ CLARIFIED ALLERGY LIST WITH PATIENT, STATED SHES USED HYDROCORTISONE IN THE PAST. CLARITAN INCREASED FOR ANTIHISTAMINE COVERAGE. PT APPEARS DEPRESSED WITH A FLAT ATTITUDE. OTHERWISE A/OX4. COOPERATIVE.
[2024-10-21 15:23] VITALS: BP 153/94
[2024-10-21 19:35] VITALS: BP 164/108
[2024-10-22 03:51] VITALS: BP 151/90
--- NOTE | 2024-10-22 04:05 | NUR ---
SUMMARY: PT A/OX4, CALLS APPROPRIATELY TO SPECIFY NEEDS AND IS PLEASANT AND COOPERATIVE W/CARE. SHE'S INDEPENDENT IN ROOM AND SBA PRN W/AWARENESS OF LIMITATIONS. PT C/O LLQ AND L.SIDE PAIN W/TYLENOL #3 RECEIVED PRN FOR TOLERABLE RELIEF. RASH TO BILAT BUTTOCKS, THIGHS AND GROIN PERSISTS W/LOTRIMINE CREAM APPLIED RX'D AND IV ABX RECEIVED PER EMAR. NO ACUTE CHANGES, VSS/AFEBRILE. POSSIBLE D/C TODAY. WILL REPORT TO DAY RN.
[2024-10-22 06:17] LABS: BASOPHILS PERCENT AUTO 0 % (0-2); EOSINOPHILS PERCENT AUTO 0 % (0-6); IMMATURE GRAN ABSOLUTE AUTO 0.09 K/mm3 (0.00-0.10); IMMATURE GRAN PERCENT AUTO 2 % (0-1); LYMPHOCYTES ABSOLUTE AUTO 0.69 K/mm3 (0.84-5.20); LYMPHOCYTES PERCENT AUTO 16 % (21-46); MONOCYTES ABSOLUTE AUTO 0.24 K/mm3 (0.16-1.47); MONOCYTES PERCENT AUTO 6 % (4-13); Mean Corpuscular HGB 23.9 pg (26.0-34.0); Mean Corpuscular Volume 80 fL (80-100); Mean Platelet Volume 11.2 fL (9.1-12.4); NEUTROPHILS ABSOLUTE AUTO 3.35 K/mm3 (1.96-9.15); NEUTROPHILS PERCENT AUTO 77 % (41-73); Platelet Count 206 K/mm3 (150-400); RDW Coefficient Variation 16.4 % (11.7-14.2); RDW Standard Deviation 44.8 fL (35.1-46.3); Red Blood Cell Count 3.77 M/mm3 (3.80-5.20); White Blood Cell Count 4.37 K/mm3 (4.00-11.30)
[2024-10-22 06:43] LABS: Bun/Creatinine Ratio 15.7 (12.0-20.0); Calcium, Blood 8.6 mg/dL (8.5-10.1); Creatinine, Blood 0.51 mg/dL (0.40-1.00); Potassium, Blood 3.8 mmol/L (3.5-5.5)
[2024-10-22 07:25] VITALS: BP 163/90
[2024-10-22] MEDS ORDERED: PROP50 PO (12:14)
[2024-10-22] MEDS ORDERED: HYDROCORTISONE TOP (12:17)
[2024-10-22] MEDS ORDERED: METO5A PO (12:19)
--- NOTE | 2024-10-22 15:55 | NUR ---
PT DISCHARGED TO HOME, PT DECLINED A WHEELCHAIR AND WAS ABLE TO AMBULATE SAFELY TO THE ELEVATOR WITH FAMILY
== END 2024-10-22 15:45 | disposition home health service (06) | DRG 872 ==
LOC: ER 13:54 → MEDS 16:59
PROVIDERS: Family Medicine; Internal Medicine; Registered Nurse; Student in an Organized Health Care Education/Training Program; ADMIT Student in an Organized Health Care Education/Training Program
DX: A41.51 Sepsis due to Escherichia coli [E. coli] (principal); N12 Tubulo-interstitial nephritis, not specified as acute or chronic; D61.818 Other pancytopenia; Z16.12 Extended spectrum beta lactamase (ESBL) resistance; K92.1 Melena; J44.89 Other specified chronic obstructive pulmonary disease; E11.9 Type 2 diabetes mellitus without complications; I10 Essential (primary) hypertension; E05.00 Thyrotoxicosis with diffuse goiter without thyrotoxic crisis or storm; R65.20 Severe sepsis without septic shock; E87.6 Hypokalemia; F32.A Depression, unspecified; R16.1 Splenomegaly, not elsewhere classified; B35.6 Tinea cruris; Z86.59 Personal history of other mental and behavioral disorders; Z88.8 Allergy status to other drugs, medicaments and biological substances; Z88.1 Allergy status to other antibiotic agents; Z79.899 Other long term (current) drug therapy; Z79.84 Long term (current) use of oral hypoglycemic drugs; Z79.4 Long term (current) use of insulin; Z79.85 Long-term (current) use of injectable non-insulin antidiabetic drugs; Z79.51 Long term (current) use of inhaled steroids; Z86.711 Personal history of pulmonary embolism; Z90.89 Acquired absence of other organs; Z98.890 Other specified postprocedural states; Z87.19 Personal history of other diseases of the digestive system
CPT/HCPCS: 36415; 74177; 80048; 80053; 80061; 81001; 82274; 82728; 82947; 83540; 83550; 83605; 83690; 83735; 84100; 84439; 84443; 84481; 85007; 85025; 85027; 85045; 85060; 85610; 87040; 87086; 94640; 94664; 94760; 96374-59; 97162; 97530; 99285-25; A9270; J0694; J1750; J2185; J2270; J2405; J2916; J3475; J3480; J7030; J7050; Q9967

== ENCOUNTER → 2024-10-31 | Outpatient (CLI) | payer OTHER ==
[~2024-10-31] MED LIST changes: +ATEN100 PO; +DILTIAZEM 24HR240 M3 PO; +HYDROCORTISONE TOP; +JENCYCLA0.35 MG PO; +METO5A PO; +OLANZAPINE20 M1 PO; +SPIRIVA RESPIMAT4 G2 INH; +TIOT18 INH; +TIZANIDINE HCL2 M1 PO
[2024-10-31 19:08] LABS: BASOPHILS ABSOLUTE AUTO 0.01 K/mm3 (0.00-0.23); BASOPHILS PERCENT AUTO 0 % (0-2); EOSINOPHILS ABSOLUTE AUTO 0.00 K/mm3 (0.00-0.68); EOSINOPHILS PERCENT AUTO 0 % (0-6); Hematocrit 39.3 % (33.0-51.0); Hemoglobin 12.1 g/dL (11.5-16.0); IMMATURE GRAN ABSOLUTE AUTO 0.01 K/mm3 (0.00-0.10); IMMATURE GRAN PERCENT AUTO 0 % (0-1); LYMPHOCYTES ABSOLUTE AUTO 0.69 K/mm3 (0.84-5.20); LYMPHOCYTES PERCENT AUTO 20 % (21-46); MONOCYTES ABSOLUTE AUTO 0.49 K/mm3 (0.16-1.47); MONOCYTES PERCENT AUTO 14 % (4-13); Mean Corpuscular HGB Conc 30.8 g/dL (31.5-36.5); Mean Corpuscular Volume 78 fL (80-100); NEUTROPHILS ABSOLUTE AUTO 2.33 K/mm3 (1.96-9.15); NEUTROPHILS PERCENT AUTO 66 % (41-73); NRBC ABSOLUTE 0.00 K/mm3 (0.00-0.02); NRBC Auto 0.0 /100 WBC (0.0-0.2); Platelet Count 184 K/mm3 (150-400); RDW Coefficient Variation 16.3 % (11.7-14.2); RDW Standard Deviation 46.5 fL (35.1-46.3)
[2024-10-31 20:12] LABS: C-REACTIVE PROTEIN, EXT RANGE <0.290 mg/dL (0.000-0.300)
[2024-10-31 20:36] LABS: Alanine Aminotransfer (ALT/SGP 29 U/L (12-78); Albumin, Blood 3.5 g/dL (3.4-5.0); Albumin/Globulin Ratio 1.2 (0.8-1.8); Anion Gap 12 mmol/L (3-11); Aspartate Aminotrans (AST/SGOT 45 U/L (12-37); Bilirubin, Total 0.4 mg/dL (0.1-1.0); Blood Urea Nitrogen 11 mg/dL (8-24); CO2, Blood 24 mmol/L (21-32); Calcium, Blood 10.4 mg/dL (8.5-10.1); Chloride, Blood 106 mmol/L (98-108); Creatinine, Blood 0.50 mg/dL (0.40-1.00); Globulin, Blood 2.8 g/dL (2.2-4.0); Glucose, Blood 122 mg/dL (70-99); Potassium, Blood 4.1 mmol/L (3.5-5.5); Sodium, Blood 138 mmol/L (136-145); Thyroid Stimulating Hormone <0.005 uIU/mL (0.360-4.800); Total Protein, Blood 6.3 g/dL (6.4-8.2)
== END | disposition home or self-care (01) ==
LOC: LAB SHORT 17:23 → LAB 17:23
PROVIDERS: Internal Medicine
DX: R63.4 Abnormal weight loss (principal)
CPT/HCPCS: 80053; 84439; 84443; 85025; 85651; 86140; 87077; 87086; 87147; 87186

== ENCOUNTER → 2025-02-20 | Outpatient (CLI) | payer OTHER | LOC: LAB 13:13 → LAB SHORT 13:13 | DX: N30.00 Acute cystitis without hematuria (principal) | CPT/HCPCS: 87086 ==